=== PATIENT | male | born 1960 | race Caucasian/White ===

== ENCOUNTER → 2016-09-26 | Outpatient (CLI) | payer MEDICAID, OTHER ==
[~2016-09-26] MED LIST: /ADVA50050 IN; /TIOT18INH INH; ACET65TA PO; ALBU17IN INH; ALBU83IN INH; ALBUTEROL INH; ALLE25CA PO; BREO1INH IN; CEFT250T OR; CEFT500T PO; CITA20TA4 PO; FERR325T OR; FOLI1TAB2 PO; GEMF600T PO; HYDR25TAB PO; INCR1INH IN; LEXA1TAB2 PO; LISI10TA4 PO; LOPI600T PO; METO-346 PO; MULT1TAB8 PO; NICO21DI4 TD; NICO21DI5 TD; No Historical Meds; OCEA0.654; PERC5TAB6 PO; PRED50TA OR; PRED50TA PO; PRED5TA PO; PRIL40CA PO; PROT1TAB2 PO; SPIR1CAP IN; SYMB16INH INH; TRAZ50TA4 PO; VITA500T OR; ZITH250T PO; campral PO
[2016-09-26 11:22] LABS: ALBUMIN 3.7 GM/DL (3.2-5.2); ALBUMIN/GLOBULIN RATIO 1.06 (1.00-1.93); ALKALINE PHOSPHATASE 88 U/L (45-117); ALT/SGPT 28 U/L (12-78); ANION GAP 8 MEQ/L (8-16); AST/SGOT 23 U/L (15-37); BILIRUBIN,TOTAL 0.9 MG/DL (0.2-1.0); BLOOD UREA NITROGEN 7 MG/DL (7-18); CALCIUM LEVEL 8.4 MG/DL (8.5-10.1); CARBON DIOXIDE LEVEL 32 MEQ/L (21-32); CHLORIDE LEVEL 100 MEQ/L (98-107); CHOLESTEROL LEVEL 185 MG/DL (<200); CREATININE FOR GFR 0.91 MG/DL (0.70-1.30); GLOMERULAR FILTRATION RATE > 60.0 (>56); GLUCOSE, FASTING 104 MG/DL (70-105); POTASSIUM SERUM 3.9 MEQ/L (3.5-5.1); SODIUM LEVEL 140 MEQ/L (136-145); TOTAL PROTEIN 7.2 GM/DL (6.4-8.2); TRIGLYCERIDES LEVEL 230 MG/DL (<150)
== END ==
LOC: M LAB 10:28
PROVIDERS: ATTEND Physician Assistant
DX: I10 Essential (primary) hypertension (principal)

== ENCOUNTER → 2016-10-22 | Outpatient (REF) | payer OTHER ==
[2016-10-22 12:46] LABS: ALBUMIN 3.9 GM/DL (3.2-5.2); ALBUMIN/GLOBULIN RATIO 1.22 (1.00-1.93); ALKALINE PHOSPHATASE 80 U/L (45-117); ALT/SGPT 38 U/L (12-78); ANION GAP 7 MEQ/L (8-16); AST/SGOT 28 U/L (15-37); BILIRUBIN,TOTAL 0.8 MG/DL (0.2-1.0); BLOOD UREA NITROGEN 9 MG/DL (7-18); CALCIUM LEVEL 8.9 MG/DL (8.5-10.1); CARBON DIOXIDE LEVEL 34 MEQ/L (21-32); CHLORIDE LEVEL 102 MEQ/L (98-107); CHOLESTEROL LEVEL 209 MG/DL (<200); CREATININE FOR GFR 0.81 MG/DL (0.70-1.30); GLOMERULAR FILTRATION RATE > 60.0 (>56); GLUCOSE, FASTING 86 MG/DL (70-105); POTASSIUM SERUM 4.1 MEQ/L (3.5-5.1); SODIUM LEVEL 143 MEQ/L (136-145); TOTAL PROTEIN 7.1 GM/DL (6.4-8.2); TRIGLYCERIDES LEVEL 198 MG/DL (<150)
== END ==
LOC: M SFHCPLAZ 09:42
PROVIDERS: ATTEND Physician Assistant
DX: F32.9 Major depressive disorder, single episode, unspecified (principal)

== ENCOUNTER → 2016-11-21 | Outpatient (CLI) | payer OTHER ==
--- NOTE | 2016-11-21 15:04 | REP ---
LOW-DOSE LUNG SCREENING CT: 11/21/2016. Clinical history: Smoker. Comparison: Chest x-ray 10/08/2015. Findings: Standard thin section low dose screening lung CT and lung window settings only is presented for review. As on the previous chest x-ray. There is linear and curvilinear fibrosis in the inferior lingular segment and in the posterior and lateral basal segments of the left lower lobe. There is no nodular or solid component to this. There is no pleural effusion or pleural based mass. The right lung shows none of these findings. I see no pulmonary parenchymal nodules or masses. There is no widening of the mediastinum. Heart not grossly enlarged. Hilar contours fairly symmetric. Visualized bones grossly intact. Impression: 1. BIRADS category 2, benign. Benign findings. Curvilinear fibrotic changes lingula and left lower lobe without acute infiltrate, parenchymal nodule, mass or other acute finding. 2. Followup recommended in 1 year for low-dose lung screening CT. 3. Patients with this category of findings have a 1-2% chance of malignancy at the time of the examination. Signed by Yo Temple MD 11/21/2016 03:07 P
== END ==
LOC: M RAD 11:32
PROVIDERS: ATTEND Internal Medicine Pulmonary Disease
DX: J43.1 Panlobular emphysema (principal); F17.200 Nicotine dependence, unspecified, uncomplicated

== ENCOUNTER → 2017-11-23 | Outpatient (CLI) | payer MEDICARE | LOC: M RAD 11:31 | DX: F17.210 Nicotine dependence, cigarettes, uncomplicated (principal) | CPT/HCPCS: G0297 ==

== ENCOUNTER 2018-09-21 16:16 | Inpatient (IN) | payer MEDICARE, MEDICAID ==
[~2018-09-21] VITALS: Ht 175.3 cm; Wt 83.2 kg
[~2018-09-21 16:16] MED LIST changes: +FOLI1TAB11 PO; -FOLI1TAB2 PO; -GEMF600T PO; +GEMF600T5 PO; -NICO21DI5 TD; +NICO21DI6 TD; +PERC5TAB12 PO; -PERC5TAB6 PO; +TRAZ-160 PO; -TRAZ50TA4 PO
[2018-09-21] MEDS ORDERED: ALBUTEROL SULFATE 2.5 MG/0.5 ML INH NEB SOLN INH ONE (17:15)
[2018-09-21] MEDS ORDERED: dexameTHASONE 20 MG/5 ML VIAL (J1100) IV ONE (17:15)
[2018-09-21] MEDS ORDERED: NS 1,000 ML IV ONE (17:15)
[2018-09-21] MEDS ORDERED: IPRATROPIUM 0.5MG/ALBUTEROL 2.5MG INH SOL UD 3ML (DUONEB)(J7620) NEB ONE (17:15)
[2018-09-21 17:18] LABS: BASO % 0.3 % (0.0-1.0); HEMOGLOBIN 18.7 g/dl (13.5-17.5); LYMPH # 1.1 10^3/uL (1.5-4.5); LYMPH % 7.5 % (24.0-44.0); MEAN CORPUSCULAR HEMOGLOBIN 33.2 pg (27.0-33.0); MEAN CORPUSCULAR HGB CONC 34.6 g/dl (32.0-36.5); MEAN CORPUSCULAR VOLUME 95.9 fl (80.0-96.0); MONO % 7.1 % (0.0-5.0); NEUTROPHILS # 12.3 10^3/uL (1.8-7.7); NEUTROPHILS % 84.6 % (36.0-66.0); PLATELET COUNT, AUTOMATED 192 10^3/uL (150-450); RED BLOOD COUNT 5.63 10^6/uL (4.30-6.10); VENOUS BASE EXCESS 3.6 (-2.0-2.0); VENOUS HCO3 27.7 MEQ/L (23.0-27.0); VENOUS O2 SATURATION 96.9 % (60.0-80.0); VENOUS PARTIAL PRESSURE CO2 39.9 mmHg (38.0-50.0); VENOUS PARTIAL PRESSURE O2 84.1 mmHg (30.0-50.0); VENOUS PH 7.459 UNITS (7.330-7.430); VENOUS STANDARD HCO3 27.7 MEQ/L; VENOUS TOTAL CO2 28.9 MEQ/L (24.0-28.0); WHITE BLOOD COUNT 14.5 10^3/uL (4.0-10.0)
[2018-09-21 17:41] LABS: ALBUMIN 3.6 GM/DL (3.2-5.2); ALT/SGPT 33 U/L (12-78); BILIRUBIN,DIRECT 0.2 MG/DL (0.0-0.2); BLOOD UREA NITROGEN 10 MG/DL (7-18); CALCIUM LEVEL 8.1 MG/DL (8.5-10.1); CARBON DIOXIDE LEVEL 27 MEQ/L (21-32); CHLORIDE LEVEL 99 MEQ/L (98-107); CPK CREATINE PHOSPHOKINASE 138 U/L (39-308); CREATININE FOR GFR 0.94 MG/DL (0.70-1.30); GLOMERULAR FILTRATION RATE > 60.0 (>56); GLUCOSE, FASTING 141 MG/DL (70-100); NT-PRO BNP 104 PG/ML (<125); POTASSIUM SERUM 3.3 MEQ/L (3.5-5.1); SODIUM LEVEL 137 MEQ/L (136-145); TROPONIN I < 0.02 NG/ML (< 0.10)
--- NOTE | 2018-09-21 18:11 | REP ---
Chest one-view HISTORY: Cough Comparison: 10/08/2015 Linear densities are present in the left lower lobe. There is tenting of the left hemidiaphragm. This is consistent with scarring. The right lung is clear. There is blunting of the left costophrenic angle due to pleural thickening. There is blunting of the left costophrenic angle due to pleural thickening. The heart is normal in size. The pulmonary vasculature is normal in appearance. Impression: Left lower lobe scarring. Electronically Signed by Surendra Plasencia MD 09/21/2018 06:03 P
--- NOTE | 2018-09-21 19:13 | ECGEPIP ---
Stationary ECG Study [facility] - ED Test Date: 2018-09-21 Pat Name: DAMIR VASQUEZ Department: Room: - Gender: M Store Clerk: : 1960 Requested By: Russ Samuels Order Number: [id number] Reading MD: Betty Cason Measurements Intervals [place] Rate: 93 P: 82 CO: 134 QRS: 73 QRSD: 104 T: 25 QT: 346 QTc: 432 Interpretive Statements SINUS RHYTHM NONSPECIFIC T-WAVE ABNORMALITY INCREASED RATE 10/08/15 Electronically Signed On 09-21-2018 19:12:57 EST by Betty Cason
[2018-09-21] MEDS ORDERED: OXAZEPAM 10 MG CAP PO ONE (19:30)
[2018-09-21] MEDS ORDERED: ALBU83IN INH (19:43)
[2018-09-21] MEDS ORDERED: VENTAER INH (19:43)
[2018-09-21] MEDS ORDERED: TYLE325T5 PO (19:43)
[2018-09-21] MEDS ORDERED: INCR1INH INH (19:43)
[2018-09-21] MEDS ORDERED: BREO1INH3 INH (19:43)
[2018-09-21] MEDS ORDERED: OSELTAMIVIR PHOSPHATE 75 MG CAP (TAMIFLU) PO ONE (20:30)
[2018-09-21] MEDS ORDERED: ONDANSETRON 4MG/2ML VIAL (J2405) IV PRN (21:15)
[2018-09-21] MEDS ORDERED: ACETAMINOPHEN TAB 650MG DOSE (2X325MG) PO PRN (21:15)
[2018-09-21] MEDS ORDERED: ALBUTEROL SULFATE 2.5 MG/0.5 ML INH NEB SOLN NEB PRN (21:30)
[2018-09-21] MEDS ORDERED: NS 1,000 ML IV SCH (21:30)
[2018-09-21] MEDS ORDERED: NICOTINE 21MG/24HR 1 EA TRANSDERMAL TD PRN (21:30)
[2018-09-21] MEDS ORDERED: POTASSIUM CHLORIDE 10 MEQ SR TABLET PO ONE (21:30)
[2018-09-21] MEDS: THIAMINE 100 MG TAB PO SCH (22:19)
[2018-09-21] MEDS: LORazepam 2 MG TAB PO PRN (22:19)
[2018-09-22] MEDS: LORazepam 2 MG TAB PO PRN ×3 (00:33→21:06)
[2018-09-22] MEDS: IPRATROPIUM 0.5MG/ALBUTEROL 2.5MG INH SOL UD 3ML (DUONEB)(J7620) NEB SCH ×7 (00:34→23:31)
[2018-09-22] MEDS: HEPARIN SOD (PORCINE) 5000 UNITS/ML VIAL SC SCH ×3 (06:29→21:07)
[2018-09-22] MEDS: TIOTROPIUM INHALER/CAPSULE (SPIRIVA) INH SCH (08:00)
[2018-09-22] MEDS ORDERED: POTASSIUM CHLORIDE 10 MEQ SR TABLET PO ONE (08:00)
[2018-09-22 08:07] LABS: BASO % 0.2 % (0.0-1.0); HEMATOCRIT 52.1 % (42.0-52.0); HEMOGLOBIN 17.7 g/dl (13.5-17.5); LYMPH # 0.7 10^3/uL (1.5-4.5); LYMPH % 6.2 % (24.0-44.0); MEAN CORPUSCULAR VOLUME 97.2 fl (80.0-96.0); MONO # 0.4 10^3/uL (0.0-0.8); MONO % 3.2 % (0.0-5.0); NEUTROPHILS # 9.8 10^3/uL (1.8-7.7); NEUTROPHILS % 89.9 % (36.0-66.0); PLATELET COUNT, AUTOMATED 174 10^3/uL (150-450); RED BLOOD COUNT 5.36 10^6/uL (4.30-6.10); WHITE BLOOD COUNT 10.9 10^3/uL (4.0-10.0)
--- NOTE | 2018-09-22 08:27 | HPE ---
DATE OF ADMISSION: 09/21/2018 CHIEF COMPLAINT: Cough, shortness of breath, wheezing progressively worsening over the last 2 to 3 days. HISTORY OF PRESENT ILLNESS: The patient is a 58-year-old male with a significant past medical history of chronic respiratory failure secondary to chronic obstructive pulmonary disease (COPD), oxygen dependent, uses 2 liters at night and 2 liters as needed during the day. He also has a history of alcohol abuse, as well as tobacco abuse. He presented to the emergency room after visiting his fitness technician, Dr. Sexton. He presented there with 2 to 3 days of cough. He is unable to describe his sputum, but it is worsening sputum production over the past several days, pleuritic chest pain, dyspnea on exertion. He is now using his daily oxygen more frequently, wheezing is not responding to the nebulizer. He does endorse a sick contact at home, his grandson has been recently ill. He also endorses nausea but no vomiting. He denies abdominal pain, constipation, diarrhea, urinary symptoms. He is noted to be flu positive. He endorses body aches, runny nose, subjective fevers and chills. PAST MEDICAL HISTORY: See history of present illness. PAST SURGICAL HISTORY: He has had hernia repair. HOME MEDICATIONS: The patient uses: - albuterol - Breo Ellipta - Incruse Ellipta ALLERGIES: CODEINE, reaction is unknown. SOCIAL HISTORY: He is a current two pack per day smoker. He drinks daily. He does three shots every night, he states that his last drink was approximately 2 days ago. Admits to recreational marijuana use. FAMILY HISTORY: Cancer and diabetes. REVIEW OF SYSTEMS: 12-point review of system was completed, all of which are negative, except those listed in the history of present illness. VITAL SIGNS: On admission, temperature 96.7, pulse 96, respirations 20, saturating at 92% on room air. Blood pressure 164/85. PHYSICAL EXAMINATION: GENERAL: The patient is in no apparent distress. Head is normocephalic, atraumatic. EYES: Extraocular movements are intact. Pupils are equal, round and reactive to light. NECK: Supple. No jugular venous pressure. LUNGS: Diffuse wheezing but bronchial breath sounds throughout, coarse breath sounds. No use of accessory muscles. CARDIOVASCULAR: Regular rate and rhythm. Normal S1, S2. No murmurs, gallops or rubs. ABDOMEN: Soft, nontender, nondistended. Positive bowel sounds. No rebound or guarding. EXTREMITIES: No pitting edema or calf tenderness. SKIN: Appears to be intact. No rashes, lesions or breakdown. NEUROLOGIC: He is alert and oriented times three. No focal deficits appreciated on examination. LABORATORIES AND IMAGING: Completed in the emergency room. White count 14, hemoglobin and hematocrit of 18/54, platelet count of 192. Chemistry shows a potassium of 3.3, BUN and creatinine of 10/0.94. Liver function tests within normal limits. Lactate within normal limits. Chest x-ray: Left lower lobe scarring. Respiratory panel was sent and the patient is influenza A positive. ASSESSMENT AND PLAN: 1. Chronic obstructive pulmonary disease (COPD) exacerbation secondary to influenza. We will place the patient on droplet precautions, DuoNeb standing, albuterol as needed, oxygen as needed, Solu-Medrol 40 twice a day, fingersticks while on Solu-Medrol, Tylenol as needed for fevers and chills. 2. History of alcohol and impending withdrawal. We will place the patient on CIWA protocol. Ativan as needed. IV fluids. Multivitamin, folate, thiamine. 3. History of tobacco abuse. Nicotine replacement patch. The patient has been counseled. 4. Supportive. Deep vein thrombosis (DVT) prophylaxis with heparin subcutaneous. Gastrointestinal prophylaxis is not indicated. 5. Diet is regular.
[2018-09-22] MEDS: ADVAIR HFA 230/21MCG INHALER INH SCH ×2 (09:00→19:41)
[2018-09-22 09:09] LABS: BLOOD UREA NITROGEN 10 MG/DL (7-18); CALCIUM LEVEL 7.9 MG/DL (8.5-10.1); CARBON DIOXIDE LEVEL 26 MEQ/L (21-32); CHLORIDE LEVEL 102 MEQ/L (98-107); CPK CREATINE PHOSPHOKINASE 107 U/L (39-308); CREATININE FOR GFR 0.59 MG/DL (0.70-1.30); GLOMERULAR FILTRATION RATE > 60.0 (>56); GLUCOSE, FASTING 173 MG/DL (70-100); MAGNESIUM LEVEL 2.5 MG/DL (1.8-2.4); POTASSIUM SERUM 4.1 MEQ/L (3.5-5.1); SODIUM LEVEL 137 MEQ/L (136-145); TROPONIN I < 0.02 NG/ML (< 0.10)
[2018-09-22] MEDS: MULTIVITAMINS/MINERALS THERAP 1 TAB PO SCH (10:41)
[2018-09-22] MEDS: THIAMINE 100 MG TAB PO SCH ×2 (10:41→21:06)
[2018-09-22] MEDS: FOLIC ACID 1 MG TAB PO SCH (10:41)
[2018-09-22] MEDS: OSELTAMIVIR PHOSPHATE 75 MG CAP (TAMIFLU) PO SCH ×2 (10:54→21:06)
[2018-09-22] MEDS: methylPREDNISolone INJ 125 MG/2 ML VIAL (J2930) IV SCH ×2 (10:54→21:08)
[2018-09-22] MEDS: NICOTINE 21MG/24HR 1 EA TRANSDERMAL TD SCH (10:54)
[2018-09-22 16:26] VITALS: BP 125/73
[2018-09-22 16:31] VITALS: BP 125/73
--- NOTE | 2018-09-22 17:11 | IPN ---
DATE: 09/22/2018 The patient is seen and examined. No acute events overnight. Reported respiration mildly improved. Denies any chest pain, pressure or discomfort. VITAL SIGNS: Temperature 97.2, pulse 76, respiratory rate 17, blood pressure 127/68, pulse oximetry 94% on two liters nasal cannula. LABORATORY DATA: WBC 10.9, hemoglobin and hematocrit 17.7/52.1, platelets 174. Chemistry: Sodium 137, potassium 4.1, chloride 102, bicarbonate 26, BUN 10, creatinine 0.59. Cardiac enzymes negative times two. C-reactive protein 18.6. PHYSICAL EXAMINATION: GENERAL: Patient alert, comfortable in no acute distress. HEENT: Normocephalic, atraumatic. PULMONARY: Diffuse bilateral expiratory wheeze. Coarse breath sounds bilateral. Does not use accessory muscles. Pursed lip breathing. CARDIAC: Regular, S1, S2. ABDOMEN: Soft, nontender. Positive bowel sounds. EXTREMITIES: No clubbing, cyanosis, or edema. ASSESSMENT AND PLAN: This is a 58-year-old male patient with underlying medical history of chronic obstructive pulmonary disease (COPD) on intermittent oxygen at home, uses two liters at night and intermittent two liters at daytime, history of alcohol abuse, drinks about three drinks of vodka per night, smoking, down to one pack per day, used to be two packs, admitted for influenza and acute COPD exacerbation. 1. Acute COPD exacerbation secondary to influenza A. Continue Tamiflu, droplet precaution, nebulizer treatment, Solu-Medrol, oxygen supplementation, Advair, Spiriva. 2. History of alcohol abuse, pending withdrawal. Clinical institute withdrawal assessment (CIWA) protocol. Ativan as needed. Thiamine, folate, multivitamin. 3. Smoking, tobacco abuse. Nicotine patch. Counseling provided. 4. Poorly compliant. During the daytime today, the patient has attempted to leave the emergency room because he was frustrated with waiting for a bed. Subsequently, the patient came back with worsening shortness of breath. Counseling was provided. 5. Deep vein thrombosis (DVT) prophylaxis. Heparin subcutaneous. DISPOSITION: Pending clinical improvement. We will taper steroid.
[2018-09-22 19:00] VITALS: BP 129/74
[2018-09-22 21:01] VITALS: BP 128/76
[2018-09-22 22:00] VITALS: BP 124/71
[2018-09-23] VITALS (8 sets, daily range): BP systolic 117–141; BP diastolic 63–88
[2018-09-23] MEDS: LORazepam 2 MG TAB PO PRN ×2 (05:20→08:00)
[2018-09-23 05:47] LABS: BASO % 0.1 % (0.0-1.0); HEMATOCRIT 52.3 % (42.0-52.0); HEMOGLOBIN 17.2 g/dl (13.5-17.5); LYMPH # 0.9 10^3/uL (1.5-4.5); LYMPH % 5.4 % (24.0-44.0); MEAN CORPUSCULAR HEMOGLOBIN 32.5 pg (27.0-33.0); MEAN CORPUSCULAR HGB CONC 32.9 g/dl (32.0-36.5); MEAN CORPUSCULAR VOLUME 98.7 fl (80.0-96.0); MONO # 0.6 10^3/uL (0.0-0.8); MONO % 3.5 % (0.0-5.0); NEUTROPHILS # 14.2 10^3/uL (1.8-7.7); NEUTROPHILS % 90.5 % (36.0-66.0); PLATELET COUNT, AUTOMATED 187 10^3/uL (150-450); WHITE BLOOD COUNT 15.7 10^3/uL (4.0-10.0)
[2018-09-23 06:06] LABS: BLOOD UREA NITROGEN 13 MG/DL (7-18); C REACTIVE PROTEIN QUANTITATIV 9.25 MG/DL (0.00-0.30); CARBON DIOXIDE LEVEL 26 MEQ/L (21-32); CHLORIDE LEVEL 105 MEQ/L (98-107); CREATININE FOR GFR 0.63 MG/DL (0.70-1.30); GLOMERULAR FILTRATION RATE > 60.0 (>56); GLUCOSE, FASTING 130 MG/DL (70-100); MAGNESIUM LEVEL 2.1 MG/DL (1.8-2.4); POTASSIUM SERUM 4.3 MEQ/L (3.5-5.1); SODIUM LEVEL 137 MEQ/L (136-145)
[2018-09-23] MEDS: HEPARIN SOD (PORCINE) 5000 UNITS/ML VIAL SC SCH ×3 (06:15→20:51)
[2018-09-23] MEDS: MULTIVITAMINS/MINERALS THERAP 1 TAB PO SCH (08:00)
[2018-09-23] MEDS: FOLIC ACID 1 MG TAB PO SCH (08:00)
[2018-09-23] MEDS: THIAMINE 100 MG TAB PO SCH ×2 (08:00→20:50)
[2018-09-23] MEDS: IPRATROPIUM 0.5MG/ALBUTEROL 2.5MG INH SOL UD 3ML (DUONEB)(J7620) NEB SCH ×5 (08:00→23:36)
[2018-09-23] MEDS: OSELTAMIVIR PHOSPHATE 75 MG CAP (TAMIFLU) PO SCH ×2 (08:00→20:50)
[2018-09-23] MEDS: methylPREDNISolone INJ 125 MG/2 ML VIAL (J2930) IV SCH (08:01)
[2018-09-23] MEDS: NICOTINE 21MG/24HR 1 EA TRANSDERMAL TD SCH (08:01)
[2018-09-23] MEDS: TIOTROPIUM INHALER/CAPSULE (SPIRIVA) INH SCH (08:29)
[2018-09-23] MEDS: ADVAIR HFA 230/21MCG INHALER INH SCH ×2 (08:29→20:48)
[2018-09-23] MEDS ORDERED: OXAZEPAM 10 MG CAP PO PRN (09:00)
[2018-09-23] MEDS: LORazepam 2 MG/ML VIAL (J2060) IV PRN ×2 (09:54→12:21)
[2018-09-23] MEDS: OXAZEPAM 10 MG CAP PO SCH ×3 (12:21→23:31)
[2018-09-23] MEDS ORDERED: HALOPERIDOL 5 MG/ML VIAL (J1630) IV PRN (12:30)
[2018-09-23] MEDS ORDERED: LORazepam 2 MG/ML VIAL (J2060) IV PRN (12:30)
--- NOTE | 2018-09-23 14:07 | REP ---
CT Head without contrast HISTORY: Rule out head injury COMPARISON: 09/14/2015 There is no intraparenchymal hemorrhage, acute infarct, mass or midline shift. The ventricular system and cortical sulci are dilated consistent with minimal volume loss. There is no extra cerebral collection. There is no fracture. The visualized sinuses are clear. IMPRESSION: Minimal volume loss. Electronically Signed by Surendra Plasencia MD 09/23/2018 01:58 P
--- NOTE | 2018-09-23 19:46 | MHCRPDOC ---
[facility] Consultation Consultation DATE OF CONSULTATION: 09/23/18 CONSULTATION REQUESTED BY: Dr. Robin REASON FOR CONSULTATION: Recent suicide attempt RELEVANT HISTORY: This is a 58 year old male who came to the hospital for an acute exacerbation of COPD. He says he still drank alcohol the night he came into the hospital. Apparently he barricaded himself inside of a room [facility] and tried to hung himself with a sheet that he had made it into a rope. He had previous admissions to [facility] in 2014 and 2016, when he was diagnosed and treated for depression, anxiety and alcohol use disorder. He was prescribed Celexa but he stopped taking it since several years ago. PAST PSYCHIATRIC HISTORY: Patient has a previous history of anxiety, depression and substance abuse PAST MEDICAL HISTORY: COPD, he had a umbilical hernia repair a couple of years ago and has chronic back pain FAMILY HISTORY: Mother: Father: Siblings: A brother and a sister. Children: Two children ( Adult children. He lives with his , his daughter and his grandchildren. His son moved out) PERSONAL AND SOCIAL HISTORY: The patient was born and raised in [place]. Resides in: [place] Marital Status: M Children: Two children ( one daughter and one son) Employment: He is not employed at this time. He lost his job and has been having financial problems ever since. SUBSTANCE ABUSE HISTORY: Smoking: one pack/day ETOH: 1 bottle/day 4 months ago, a couple of shots at bedtime recently (everyday) Illicit Drugs: Marihuana LEGAL HISTORY: Driving while intoxicated (DWI) at the age of 18.. MENTAL STATUS EXAMINATION: Patient is a 58 year old male, who is alert, cooperative, with good eye contact, laying in bed with some respiratory distress. Speech is spontaneous and fluent. Normal tone and rate. Low volume. Language skills are good. Thought processes including: linear, coherent. Thought content: anxious thoughts about his financial situation, about making ends meet. Description of associations: good Description of abnormal or psychotic thoughts: Denies SI/HI, mariaelena AV hallucinations, denies thought delusions Judgment: Poor Insight: Limited. Orientation to x 3 Recent and remote memory: he can't remember the recent incidents that motivated this consults. He can't remember trying to hurt himself. Attention span and concentration: Good Language: well structured, fair vocabulary Fund of knowledge: average Mood: Anxious Affect: full, appropriate, reactive, congruent with mood DIAGNOSIS: 1. Other specified depressive disorder 2. Generalized Anxiety disorder 3. ETOH use disorder 4. Cannabis misuse 5. R/O ETOH induced depression PLAN: 1. Start Patient on Zoloft 25 mgs PO QAM and slowly increase it. 2. Patient doesn't remember trying to kill himself. I believe that he probably was experiencing withdrawals from alcohol, but he reports high levels of anxiety and he uses alcohol and nicotine as his crutches. He smokes marihuana occasionally. He says that his 's income is not enough and he says several times: "I need to get a job, I need to work". He says they have financial difficulties but they don't owe money to anyone. He gets frustrated because his lends money to her relatives and she doesn't realize they are going through a tough time (since he lost his job, about 2 years ago), but he is not insightful about the amount of money he spends in alcohol. He remembers that Dr. Craig and all the staff tried their best for him to get into Rehab and he said he was there only 48 hours because of insurance problems, apparently. He is goal oriented, he says everything he wants is to go back home even if he has to remain on the first floor in case his is still mad at him, because when that happens, she goes to the second floor and he remains on the 1st. he says he want to live because he has his grandson and "I love him to and he loves me too". He says he can't wait to go fishing with his grandson, once the snow is over. Patient was very polite, appropriate and coherent. He certainly is stress ed out, anxious and depressed but he denies SI. He accepted to take Zoloft in a low dose. Patient might need to be admitted to [facility]. I will come to re evaluate him tomorrow. Vital Signs Vital Signs Date Time Temp Pulse Resp B/P (MAP) Pulse Ox O2 Delivery O2 Flow Rate FiO2 09/23/18 16:00 136/88 (104) 09/23/18 16:00 70 09/23/18 15:30 98.2 22 97 2.0 09/22/18 15:46 Nasal Cannula Laboratory Data 24H Labs Laboratory Tests 2 09/23/18 02:14: Bedside Glucose (Misc Panel) 173H 09/23/18 05:37: Immature Granulocyte % (Auto) 0.5, White Blood Count 15.7H, Red Blood Count 5.30, Hemoglobin 17.2, Hematocrit 52.3H, Mean Corpuscular Volume 98.7H, Mean Corpuscular Hemoglobin 32.5, Mean Corpuscular Hemoglobin Concent 32.9, Red Cell Distribution Width 14.3, Platelet Count 187, Neutrophils (%) (Auto) 90.5H, Lymphocytes (%) (Auto) 5.4L, Monocytes (%) (Auto) 3.5, Eosinophils (%) (Auto) 0.0, Basophils (%) (Auto) 0.1, Neutrophils # (Auto) 14.2H, Lymphocytes # (Auto) 0.9L, Monocytes # (Auto) 0.6, Eosinophils # (Auto) 0.0, Basophils # (Auto) 0.0, Nucleated Red Blood Cells % (auto) 0.0, Anion Gap 6L, Glomerular Filtration Rate > 60.0, Blood Urea Nitrogen 13, Creatinine 0.63L, Sodium Level 137, Potassium Level 4.3, Chloride Level 105, Carbon Dioxide Level 26, Calcium Level 8.0L, Magnesium Level 2.1, C-Reactive Protein, Quantitative 9.25H 09/23/18 06:14: Bedside Glucose (Misc Panel) 126H 09/23/18 11:30: Bedside Glucose (Misc Panel) 170H 09/23/18 17:25: Bedside Glucose (Misc Panel) 158H Home Medications Current Medications Current Medications Acetaminophen (Tylenol Tab) 650 mg Q4HP PRN PO MILD PAIN OR FEVER; Start 09/21/18 at 21:15 Albuterol Sulfate (Proventil Neb) 2.5 mg Q2HP PRN NEB SOB/WHEEZING; Start 09/21/18 at 21:30 Albuterol/ Ipratropium (Duoneb (Ipr 0.5mg/Alb 2.5mg)) 3 ml RQ4H NEB Last administered on 09/23/18at 11:15; Start 09/22/18 at 00:00 Folic Acid (Folic Acid) 1 mg DAILY PO Last administered on 09/23/18at 08:00; Start 09/22/18 at 09:00 Haloperidol (Haldol) 2.5 mg Q6HP PRN IV AGITATION Last administered on 09/23/18at 13:02; Start 09/23/18 at 12:30 Heparin Sodium (Porcine) (Heparin) 5,000 units Q8H SC Last administered on 09/23/18at 16:13; Start 09/22/18 at 06:00 Home Med (Med Rec Complete!) ASDIRECTED XX ; Start 09/21/18 at 19:45; Stop 09/21/18 at 19:46; Status DC Lorazepam (Ativan) 1 mg Q2HP PRN IV ANXIETY/AGITATION Last administered on 09/23/18at 12:21; Start 09/23/18 at 09:00; Stop 09/23/18 at 12:33; Status DC Lorazepam (Ativan) 2 mg ASDIRECTED PRN PO SEE PROTOCOL Last administered on 09/23/18at 08:00; Start 09/21/18 at 21:30; Stop 09/23/18 at 08:57; Status DC Lorazepam (Ativan) 2 mg Q2HP PRN IV ANXIETY/AGITATION; Start 09/23/18 at 12:30 Methylprednisolone (SOLU medrol) 20 mg Q12H IV ; Start 09/23/18 at 21:00 Methylprednisolone (SOLUmedrol) 40 mg Q12H IV Last administered on 09/23/18at 08:01; Start 09/22/18 at 09:00; Stop 09/23/18 at 16:15; Status DC Multivitamins (Theragram-M) 1 tab DAILY PO Last administered on 09/23/18at 08:00; Start 09/22/18 at 09:00 Nicotine (Nicoderm Cq 21mg) 1 patch DAILY TD Last administered on 09/23/18at 08:01; Start 09/22/18 at 09:00 Nicotine (Nicoderm Cq 21mg) 1 patch DAILYPRN PRN TD NICOTINE WITHDRAWAL; Start 09/21/18 at 21:30; Stop 09/22/18 at 08:48; Status DC Ondansetron HCl (ZOFRAN INJection) 4 mg Q6HP PRN IV NAUSEA OR VOMITING; Start 09/21/18 at 21:15 Oseltamivir Phosphate (Tamiflu) 75 mg BID PO Last administered on 09/23/18 08:00; Start 09/22/18 at 09:00 Oxazepam (Serax) 10 mg Q4HP PRN PO withdrawal Last administered on 09/23/18 16:16; Start 09/23/18 at 09:00 Oxazepam (Serax) 20 mg Q6H PO Last administered on 09/23/18 17:26; Start 09/23/18 at 12:00 Salmeterol Xinafoate/ Fluticasone (Advair Hfa 230/ 21) 2 puff BID INH Last administered on 09/23/18 08:29; Start 09/22/18 at 09:00 Sodium Chloride 1,000 ml @ 80 mls/hr [id number] IV Last administered on 09/21/18 22:19; Start 09/21/18 at 21:30; Stop 09/22/18 at 07:56; Status DC Thiamine HCl (Thiamine HCl) 100 mg BID PO Last administered on 09/23/18 08:00; Start 09/21/18 at 21:28; Stop 09/24/18 at 09:01 Tiotropium Gable (Spiriva Handihaler) 1 inhalation DAILY@08 INH Last administered on 09/23/18 08:29; Start 09/22/18 at 08:00 Scheduled (Incruse Ellipta) 62.5 Mcg/Inh Inh, 62.5 MCG INH DAILY, (Reported) Fluticasone/Vilanterol (Breo Ellipta 200-25 Mcg/INH) 1 Inh Inh, 1 PUFF INH DAILY, (Reported) Scheduled PRN Acetaminophen (Tylenol) 325 Mg Tab, 650 MG PO QID PRN for PAIN, (Reported) Albuterol Sulfate (Ventolin Hfa) 108 Mcg/Act Aer, 2 PUFFS INH QID PRN for SHORTNESS OF BREATH, (Reported) Albuterol Sulfate (Albuterol Sulfate) 2.5 Mg/3 Ml Nebu, 2.5 MG INH QID PRN for SHORTNESS OF BREATH, (Reported) Allergies Coded Allergies: No Known Drug Allergy (Verified Allergy, Unknown, 11/08/12) Codeine (Verified Adverse Reaction, Intermediate, VOMIT, 11/08/12) ELLIOT PANG MD Sep 23, 2018 19:46
--- NOTE | 2018-09-23 20:04 | IPNPDOC ---
Text Note Date of Service The patient was seen on 09/23/18. NOTE The patient is seen and examined. Poor historian. agitated. as per nursing staff, patient attempted to lock himself in the room and hang himself after comfrontation with his . Reported respiration mildly improved. Denies any chest pain, pressure or discomfort. PHYSICAL EXAMINATION: GENERAL: Patient alert, comfortable in no acute distress. HEENT: Normocephalic, atraumatic. PULMONARY: Diffuse bilateral expiratory wheeze. Coarse breath sounds bilateral. Does not use accessory muscles. Pursed lip breathing. CARDIAC: Regular, S1, S2. ABDOMEN: Soft, nontender. Positive bowel sounds. EXTREMITIES: No clubbing, cyanosis, or edema. ASSESSMENT AND PLAN: This is a 58-year-old male patient with underlying medical history of chronic obstructive pulmonary disease (COPD) on intermittent oxygen at home, uses two liters at night and intermittent two liters at daytime, history o f alcohol abuse, drinks about three drinks of vodka per night, smoking, down to one pack per day, used to be two packs, admitted for influenza and acute COPD exacerbation. 1. Acute COPD exacerbation secondary to influenza A. Continue Tamiflu, droplet precaution, nebulizer treatment, Solu-Medrol, oxygen supplementation, Advair, Spiriva. 2. History of alcohol abuse, pending withdrawal. Clinical institute withdrawal assessment (CIWA) protocol. serax standing and PRN, with Ativan IV as needed if patient unable to take PO. Thiamine, folate, multivitamin. 3. agitation with suicide attempt. likely delirium vs etoh withdrawal, vs metabolic encephalopathy, underlying alcohol induced early dementia, 1 on 1, elopement and suicide precaution. c/w med as above. Psych consulted. 3. Smoking, tobacco abuse. Nicotine patch. Counseling provided. 4. Poorly compliant. complicating care 5. Deep vein thrombosis (DVT) prophylaxis. Heparin subcutaneous. DISPOSITION: Pending clinical improvement. We will taper steroid. VS,Fishbone, I+O VS, Fishbone, I+O Laboratory Tests 09/23/18 05:37 Red Blood Count 5.30, Mean Corpuscular Volume 98.7 H, Mean Corpuscular Hemoglobin 32.5, Mean Corpuscular Hemoglobin Concent 32.9, Red Cell Distribution Width 14.3, Neutrophils (%) (Auto) 90.5 H, Lymphocytes (%) (Auto) 5.4 L, Monocytes (%) (Auto) 3.5, Eosinophils (%) (Auto) 0.0, Basophils (%) (Auto) 0.1, Neutrophils # (Auto) 14.2 H, Lymphocytes # (Auto) 0.9 L, Monocytes # (Auto) 0.6, Eosinophils # (Auto) 0.0, Basophils # (Auto) 0.0, Calcium Level 8.0 L Vital Signs Date Time Temp Pulse Resp B/P (MAP) Pulse Ox O2 Delivery O2 Flow Rate FiO2 09/23/18 16:00 136/88 (104) 09/23/18 16:00 70 09/23/18 15:30 98.2 22 97 2.0 09/22/18 15:46 Nasal Cannula I&O- Last 24 Hours up to 6 AM 09/23/18 05:59 Intake Total 800 ml Output Total 0 ml Balance 800 ml KIM CHACON MD Sep 23, 2018 20:04
[2018-09-23] MEDS: methylPREDNISolone INJ 40 MG/1 ML VIAL (J2920) IV SCH (20:50)
[2018-09-24] VITALS (7 sets, daily range): BP systolic 133–150; BP diastolic 64–85
[2018-09-24] MEDS: IPRATROPIUM 0.5MG/ALBUTEROL 2.5MG INH SOL UD 3ML (DUONEB)(J7620) NEB SCH ×6 (03:17→23:21)
[2018-09-24 03:29] LABS: BASO % 0.3 % (0.0-1.0); HEMATOCRIT 52.6 % (42.0-52.0); HEMOGLOBIN 17.1 g/dl (13.5-17.5); LYMPH # 1.1 10^3/uL (1.5-4.5); LYMPH % 9.6 % (24.0-44.0); MEAN CORPUSCULAR HEMOGLOBIN 32.6 pg (27.0-33.0); MEAN CORPUSCULAR HGB CONC 32.5 g/dl (32.0-36.5); MEAN CORPUSCULAR VOLUME 100.4 fl (80.0-96.0); MONO # 0.6 10^3/uL (0.0-0.8); MONO % 5.3 % (0.0-5.0); NEUTROPHILS # 9.6 10^3/uL (1.8-7.7); NEUTROPHILS % 84.3 % (36.0-66.0); PLATELET COUNT, AUTOMATED 219 10^3/uL (150-450); RED BLOOD COUNT 5.24 10^6/uL (4.30-6.10); WHITE BLOOD COUNT 11.4 10^3/uL (4.0-10.0)
[2018-09-24 03:45] LABS: BLOOD UREA NITROGEN 12 MG/DL (7-18); C REACTIVE PROTEIN QUANTITATIV 4.46 MG/DL (0.00-0.30); CALCIUM LEVEL 8.2 MG/DL (8.5-10.1); CARBON DIOXIDE LEVEL 31 MEQ/L (21-32); CHLORIDE LEVEL 105 MEQ/L (98-107); CREATININE FOR GFR 0.74 MG/DL (0.70-1.30); GLOMERULAR FILTRATION RATE > 60.0 (>56); GLUCOSE, FASTING 141 MG/DL (70-100); MAGNESIUM LEVEL 2.3 MG/DL (1.8-2.4); POTASSIUM SERUM 4.3 MEQ/L (3.5-5.1); SODIUM LEVEL 140 MEQ/L (136-145)
[2018-09-24] MEDS: HEPARIN SOD (PORCINE) 5000 UNITS/ML VIAL SC SCH ×3 (06:16→21:01)
[2018-09-24] MEDS: OXAZEPAM 10 MG CAP PO SCH ×4 (06:16→23:46)
[2018-09-24] MEDS: TIOTROPIUM INHALER/CAPSULE (SPIRIVA) INH SCH (08:37)
[2018-09-24] MEDS: ADVAIR HFA 230/21MCG INHALER INH SCH ×2 (08:37→19:56)
[2018-09-24] MEDS: methylPREDNISolone INJ 40 MG/1 ML VIAL (J2920) IV SCH ×2 (08:54→21:01)
[2018-09-24] MEDS: MULTIVITAMINS/MINERALS THERAP 1 TAB PO SCH (08:54)
[2018-09-24] MEDS: FOLIC ACID 1 MG TAB PO SCH (08:54)
[2018-09-24] MEDS: THIAMINE 100 MG TAB PO SCH (08:54)
[2018-09-24] MEDS: SERTRALINE HCL 25 MG TABLET PO SCH (08:54)
[2018-09-24] MEDS: NICOTINE 21MG/24HR 1 EA TRANSDERMAL TD SCH (08:54)
[2018-09-24] MEDS: OSELTAMIVIR PHOSPHATE 75 MG CAP (TAMIFLU) PO SCH ×2 (08:54→21:00)
[2018-09-24] MEDS ORDERED: GLUCOSE 4 GM CHEW TABLET PO PRN (11:45)
[2018-09-24] MEDS ORDERED: GLUCAGON FOR INJ 1 MG VIAL (J1610) SC PRN (11:45)
[2018-09-24] MEDS ORDERED: DEXTROSE 50% 50 ML SYRINGE IV PRN (11:45)
[2018-09-24] MEDS: HumaLOG INSULIN (NovoLOG) PER UNIT SC SCH ×2 (12:00→17:51)
--- NOTE | 2018-09-24 19:08 | IPNPDOC ---
Text Note Date of Service The patient was seen on 09/24/18. NOTE The patient is seen and examined. Poor historian.. Reported respiration mildly improved. Denies any chest pain, pressure or discomfort. alot calmer PHYSICAL EXAMINATION: GENERAL: Patient alert, comfortable in no acute distress. HEENT: Normocephalic, atraumatic. PULMONARY: Diffuse bilateral expiratory wheeze. Coarse breath sounds bilateral. Does not use accessory muscles. Pursed lip breathing. CARDIAC: Regular, S1, S2. ABDOMEN: Soft, nontender. Positive bowel sounds. EXTREMITIES: No clubbing, cyanosis, or edema. ASSESSMENT AND PLAN: This is a 58-year-old male patient with underlying medical history of chronic obstructive pulmonary disease (COPD) on intermittent oxygen at home, uses two liters at night and intermittent two liters at daytime, history of alcohol abuse, drinks about three drinks of vodka per night, smoking, down to one pack per day, used to be two packs, admitted for influenza and acute COPD exacerbation. 1. Acute COPD exacerbation secondary to influenza A. Continue Tamiflu, droplet precaution, nebulizer treatment, oxygen supplementation, Advair, Spiriva. taper steroid 2. History of alcohol abuse, pending withdrawal. Clinical institute withdrawal assessment (CIWA) protocol. serax standing and PRN, with Ativan IV as needed if patient unable to take PO. Thiamine, folate, multivitamin. serax dose decreased 3. agitation with suicide attempt. likely delirium vs etoh withdrawal, vs metabolic encephalopathy, underlying alcohol induced early dementia, 1 on 1, elopement and suicide precaution. c/w med as above. Psych consulted. zoloft 3. Smoking, tobacco abuse. Nicotine patch. Counseling provided. 4. Poorly compliant. complicating care 5. Deep vein thrombosis (DVT) prophylaxis. Heparin subcutaneous. DISPOSITION: Pending clinical improvement. We will taper steroid. final psych rec VS,Eric, I+O VS, Eric, I+O Laboratory Tests 09/24/18 03:09 Red Blood Count 5.24, Mean Corpuscular Volume 100.4 H, Mean Corpuscular Hemoglobin 32.6, Mean Corpuscular Hemoglobin Concent 32.5, Red Cell Distribution Width 14.2, Neutrophils (%) (Auto) 84.3 H, Lymphocytes (%) (Auto) 9.6 L, Monocytes (%) (Auto) 5.3 H, Eosinophils (%) (Auto) 0.0, Basophils (%) (Auto) 0.3, Neutrophils # (Auto) 9.6 H, Lymphocytes # (Auto) 1.1 L, Monocytes # (Auto) 0.6, Eosinophils # (Auto) 0.0, Basophils # (Auto) 0.0, Calcium Level 8.2 L Vital Signs Date Time Temp Pulse Resp B/P (MAP) Pulse Ox O2 Delivery O2 Flow Rate FiO2 09/24/18 16:29 69 138/78 09/24/18 16:29 98.0 18 96 2.0 09/22/18 15:46 Nasal Cannula I&O- Last 24 Hours up to 6 AM 09/24/18 06:00 Intake Total 1310 ml Output Total 400 ml Balance 910 ml KIM CHACON MD Sep 24, 2018 19:08
[2018-09-24] MEDS ORDERED: HumaLOG INSULIN (NovoLOG) PER UNIT SC SCH (21:00)
[2018-09-25 04:00] VITALS: BP 135/84
[2018-09-25] MEDS: IPRATROPIUM 0.5MG/ALBUTEROL 2.5MG INH SOL UD 3ML (DUONEB)(J7620) NEB SCH ×4 (04:01→15:23)
[2018-09-25 04:30] LABS: BASO % 0.2 % (0.0-1.0); HEMATOCRIT 49.1 % (42.0-52.0); HEMOGLOBIN 16.1 g/dl (13.5-17.5); LYMPH # 1.2 10^3/uL (1.5-4.5); LYMPH % 12.9 % (24.0-44.0); MEAN CORPUSCULAR HEMOGLOBIN 32.2 pg (27.0-33.0); MEAN CORPUSCULAR HGB CONC 32.8 g/dl (32.0-36.5); MEAN CORPUSCULAR VOLUME 98.2 fl (80.0-96.0); MONO # 0.5 10^3/uL (0.0-0.8); MONO % 5.1 % (0.0-5.0); NEUTROPHILS # 7.8 10^3/uL (1.8-7.7); NEUTROPHILS % 81.2 % (36.0-66.0); PLATELET COUNT, AUTOMATED 228 10^3/uL (150-450); WHITE BLOOD COUNT 9.6 10^3/uL (4.0-10.0)
[2018-09-25 04:47] LABS: BLOOD UREA NITROGEN 12 MG/DL (7-18); C REACTIVE PROTEIN QUANTITATIV 1.97 MG/DL (0.00-0.30); CALCIUM LEVEL 7.8 MG/DL (8.5-10.1); CARBON DIOXIDE LEVEL 31 MEQ/L (21-32); CHLORIDE LEVEL 103 MEQ/L (98-107); CREATININE FOR GFR 0.72 MG/DL (0.70-1.30); GLOMERULAR FILTRATION RATE > 60.0 (>56); GLUCOSE, FASTING 129 MG/DL (70-100); SODIUM LEVEL 137 MEQ/L (136-145)
[2018-09-25 05:16] VITALS: BP 135/84
[2018-09-25] MEDS: HEPARIN SOD (PORCINE) 5000 UNITS/ML VIAL SC SCH ×2 (05:20→14:00)
[2018-09-25] MEDS: OXAZEPAM 10 MG CAP PO SCH ×2 (05:20→13:21)
[2018-09-25] MEDS: HumaLOG INSULIN (NovoLOG) PER UNIT SC SCH ×2 (07:42→13:19)
[2018-09-25 08:00] VITALS: BP 130/76
[2018-09-25] MEDS: TIOTROPIUM INHALER/CAPSULE (SPIRIVA) INH SCH (08:09)
[2018-09-25] MEDS: ADVAIR HFA 230/21MCG INHALER INH SCH (08:10)
[2018-09-25] MEDS: FOLIC ACID 1 MG TAB PO SCH (08:39)
[2018-09-25] MEDS: MULTIVITAMINS/MINERALS THERAP 1 TAB PO SCH (08:39)
[2018-09-25] MEDS: NICOTINE 21MG/24HR 1 EA TRANSDERMAL TD SCH (08:39)
[2018-09-25] MEDS: OSELTAMIVIR PHOSPHATE 75 MG CAP (TAMIFLU) PO SCH (08:39)
[2018-09-25] MEDS: SERTRALINE HCL 25 MG TABLET PO SCH (08:39)
[2018-09-25] MEDS ORDERED: predniSONE 10 MG TAB PO SCH (09:00)
[2018-09-25] MEDS ORDERED: FOLI1TAB11 PO (11:57)
[2018-09-25] MEDS ORDERED: ADVA230A INH (11:57)
[2018-09-25] MEDS ORDERED: VITMTA PO (11:57)
[2018-09-25] MEDS ORDERED: SERT25TA PO (11:57)
[2018-09-25] MEDS ORDERED: OXAZ10CA3 PO (11:57)
[2018-09-25] MEDS ORDERED: OSEL75CA2 PO (11:57)
[2018-09-25] MEDS ORDERED: PRED10TA2 PO (11:57)
[2018-09-25] MEDS ORDERED: TIOT18INH INH (11:57)
[2018-09-25] MEDS ORDERED: THIA100T7 PO (11:57)
[2018-09-25 12:00] VITALS: BP 142/80
[2018-09-25 16:00] VITALS: BP 137/76
--- NOTE | 2018-09-25 19:35 | DSES ---
DATE OF ADMISSION: 09/21/2018 DATE OF DISCHARGE: 09/25/2018 PRIMARY CARE PROVIDER: Dr. Dilip Eden MANUFACTURING INTERN: Dr. Felix Sexton PSYCHIATRISTS: Dr. Mullins and Dr. Rutherford FINAL DIAGNOSES: 1. Acute chronic obstructive pulmonary disease (COPD) exacerbation secondary to influenza A. 2. Alcohol abuse with alcohol withdrawal. 3. Agitation. 4. Suicide attempt. 5. Smoking. 6. Poor compliance. HISTORY OF PRESENT ILLNESS: This is a 58-year-old male patient with underlying medical history of COPD, uses 2 liters of oxygen at night and 2 liters intermittently during daytime. The patient also has a history of alcohol abuse, as well as tobacco abuse. Drinks about three vodkas per day. He presented to the emergency room after visiting his tricot knitter, Dr. Sexton, presented with 2 to 3 days of cough with worsening sputum production, pleuritic chest pain, dyspnea on exertion, using oxygen [id number]. Shortness of breath not responding to nebulizer. Reported sick contact at home with the patient's grandson. Reported nausea, no vomiting. The patient denies any abdominal pain, constipation, diarrhea. He is influenza positive. Endorsed diffuse body aches. HOSPITAL COURSE: The patient was admitted to the hospital and started on steroids, as well as Tamiflu nebulizer treatments, inhalers, and CIWA protocol with benzodiazepine standing and as needed. The patient's hospital course was complicated with episodes of delirium. The patient was quite agitated. Furthermore, the patient had an argument with family and subsequently barricaded himself in the room, had a rope around his neck stating that his family does not want him to be back. Subsequently, psychiatry was consulted. The patient is currently comfortable, tolerating steroid taper and on oral medications. Passed physical therapy (PT). Smoking cessation counseling provided, nicotine provided, ready to be transferred for inpatient mental health unit for further care as per psychiatry. One-to-one sitter and plastic utensils were observed during the hospital course. VITAL SIGNS: Temperature 97.8, pulse 75, respirations 20, blood pressure 142/80, pulse oximetry 92% on 2 liters nasal cannula. LABORATORY DATA: WBC 9.6, hemoglobin and hematocrit 16.1/49.1, platelets 228. Chemistry: Sodium 137, potassium 4.0, chloride 103, bicarbonate 31, BUN 12, creatinine 0.72. PHYSICAL EXAMINATION: GENERAL: The patient is comfortable and in no acute distress. HEENT: Normocephalic, atraumatic. PULMONARY: Diffuse mild expiratory wheeze, coarse breath sounds. CARDIAC: Regular S1, S2. ABDOMEN: Soft, nontender. EXTREMITIES: No clubbing, cyanosis or edema. DISCHARGE MEDICATIONS: - folic acid 1 mg by mouth daily - multivitamin one tablet daily - thiamine 100 mg by mouth daily - Tamiflu 75 mg by mouth twice a day - Serax 10 mg by mouth every 4 hours as needed - prednisone taper - Zoloft 25 mg by mouth in the morning - acetaminophen 650 mg by mouth four times a day as needed - Ventolin inhaler four times a day as needed - Breo Ellipta inhalation daily DISCHARGE INSTRUCTIONS: Please see primary care provider in 7 days. Please see tricot knitter in 10 days after discharge. Smoking cessation. Stop alcohol use. Further care as per psychiatrist at inpatient mental health unit. Return to the hospital if symptoms worsen.
== END 2018-09-25 16:48 | DRG 194 ==
LOC: M ED 16:16 → M ED INP 21:11 → M MSPAV 09-22 16:26 → M ICU 09-23 15:23
PROVIDERS: ADMIT Internal Medicine; ATTEND Hospitalist
DX: J10.1 Influenza due to other identified influenza virus with other respiratory manifestations (principal); J44.1 Chronic obstructive pulmonary disease with (acute) exacerbation; T14.91XA Suicide attempt, initial encounter; F17.200 Nicotine dependence, unspecified, uncomplicated; Z79.899 Other long term (current) drug therapy; Z99.81 Dependence on supplemental oxygen; Z91.19 Patient's noncompliance with other medical treatment and regimen; Z88.5 Allergy status to narcotic agent; F10.97 Alcohol use, unspecified with alcohol-induced persisting dementia

== ENCOUNTER 2018-09-25 13:30 | Inpatient (IN) | payer MEDICARE, MEDICAID ==
[~2018-09-25] VITALS: Ht 175.3 cm; Wt 80.4 kg
[~2018-09-25 13:30] MED LIST changes: +ADVA230A INH; +BREO1INH3 INH; +INCR1INH INH; +OSEL75CA2 PO; +OXAZ10CA3 PO; +PRED10TA2 PO; +SERT25TA PO; +THIA100T7 PO; +TIOT18INH INH; +TYLE325T5 PO; +VENTAER INH; +VITMTA PO
[2018-09-25] MEDS ORDERED: MOM 30ML SUSPENSION UDC PO PRN (15:00)
[2018-09-25] MEDS ORDERED: MAALOX 30 ML SUSP *UDC PO PRN (15:00)
[2018-09-25] MEDS ORDERED: LORazepam 2 MG TAB PO PRN (15:45)
[2018-09-25 16:59] VITALS: BP 140/82
[2018-09-25] MEDS ORDERED: OXAZEPAM 10 MG CAP PO PRN ×2 (18:45→19:15)
[2018-09-25] MEDS: IPRATROPIUM 0.5MG/ALBUTEROL 2.5MG INH SOL UD 3ML (DUONEB)(J7620) NEB SCH (20:00)
[2018-09-25] MEDS: THIAMINE 100 MG TAB PO SCH (21:53)
[2018-09-25] MEDS: traZODone 50 MG TAB PO PRN ×2 (21:53→22:30)
[2018-09-25] MEDS: OSELTAMIVIR PHOSPHATE 75 MG CAP (TAMIFLU) PO SCH (21:53)
[2018-09-25] MEDS: ACETAMINOPHEN TAB 650MG DOSE (2X325MG) PO PRN (21:54)
[2018-09-25] MEDS: NICOTINE 21MG/24HR 1 EA TRANSDERMAL TD SCH (21:55)
[2018-09-25] MEDS: ADVAIR HFA 115/21MCG INHALER INH SCH (21:55)
[2018-09-25 22:20] VITALS: BP 152/96
[2018-09-25 22:21] VITALS: BP 152/96
[2018-09-25 23:20] VITALS: BP 134/75
[2018-09-26] MEDS: IPRATROPIUM 0.5MG/ALBUTEROL 2.5MG INH SOL UD 3ML (DUONEB)(J7620) NEB SCH ×6 (04:46→20:00)
[2018-09-26 06:00] VITALS: BP 135/83
[2018-09-26] MEDS ORDERED: predniSONE 2.5 MG TAB PO SCH (09:00)
[2018-09-26] MEDS: OSELTAMIVIR PHOSPHATE 75 MG CAP (TAMIFLU) PO SCH ×2 (09:18→21:23)
[2018-09-26] MEDS: OYSTER SHELL CALCIUM 500 MG TAB PO SCH (09:18)
[2018-09-26] MEDS: FOLIC ACID 1 MG TAB PO SCH (09:18)
[2018-09-26] MEDS: SERTRALINE HCL 25 MG TABLET PO SCH (09:18)
[2018-09-26] MEDS: MULTIVITAMINS/MINERALS THERAP 1 TAB PO SCH (09:18)
[2018-09-26] MEDS: LORazepam 1 MG TAB PO SCH ×3 (09:18→21:23)
[2018-09-26] MEDS: THIAMINE 100 MG TAB PO SCH ×2 (09:18→21:23)
[2018-09-26] MEDS: predniSONE 10 MG TAB PO SCH (09:18)
[2018-09-26] MEDS: ACETAMINOPHEN TAB 650MG DOSE (2X325MG) PO PRN (09:27)
[2018-09-26] MEDS: NICOTINE 21MG/24HR 1 EA TRANSDERMAL TD SCH (09:27)
[2018-09-26] MEDS: ADVAIR HFA 115/21MCG INHALER INH SCH ×2 (10:26→21:24)
[2018-09-26] MEDS: TIOTROPIUM INHALER/CAPSULE (SPIRIVA) INH SCH (11:53)
[2018-09-26 12:27] VITALS: BP 131/72
[2018-09-26 12:28] VITALS: BP 131/72
--- NOTE | 2018-09-26 13:14 | HPE ---
DATE OF ADMISSION: 09/25/2018 HISTORY OF THE PRESENT ILLNESS: Please refer to psychiatric history and evaluation for further details on this admission. This examination and history is intended for medical issues which may need treatment, follow-up or consult on this 58-year-old male who was transferred from the ICU unit where he had initially been for the treatment of severe acute exacerbation of chronic obstructive pulmonary disease (COPD), positive influenza, and alcohol withdrawal. He was treated with steroids, DuoNeb treatments, oxygen. He was placed on CIWA protocol, nicotine patch for tobacco abuse. He slowly improved and on 09/25 was felt to be stable to be transferred to the inpatient mental health unit where it was felt he needed to go because while on the medical/surgical floor he barricaded himself inside of a room and tried to hang himself with a (cut off) that he had made into a rope. A consult was done by Dr. Mullins the psychiatrist who felt that he was probably experiencing withdrawals, but he also had a high level of anxiety, uses alcohol, nicotine and marijuana as crutches to this. She felt the patient when medically stable should be discharged and admitted to the inpatient mental health unit. Labs on 09/25 showed normal white count of 9.6, hemoglobin 16.1, hematocrit 49.1, platelets 228, electrolytes were normal, BUN was 12, creatinine was 0.72, calcium slightly low at 7.8, C-reactive protein was still slightly elevated but much improved from admission. It had been 18.6 and today it was down to 1.97. ALLERGIES: 1. CODEINE. PAST MEDICAL HISTORY: Oxygen dependent COPD. Alcohol abuse. Tobacco abuse. PAST SURGICAL HISTORY: Hernia repair. SOCIAL HISTORY: He is . He smokes two packs of cigarettes per day. He drinks alcohol. He drinks at least three shots every night. He uses recreational marijuana. FAMILY HISTORY: Positive for cancer and diabetes. HOME MEDICATIONS: - albuterol one vial four times a day as needed shortness of breath or wheeze - Breo Ellipta 200-25 one inhalation daily - INCRUSE Ellipta 62.5 one inhalation daily REVIEW OF SYSTEMS: He had no complaint of headache. No fever. No chills. No tinnitus. No hoarseness. No difficulty swallowing. He stated he felt lightheadedness. No vertigo. Cardiovascular no complaints of chest pain. Had shortness of breath. No palpitations or edema. Respiratory he was short of breath. He had cough. He had scattered rhonchi with orthopnea. No hemoptysis. Gastrointestinal (GI): No nausea, vomiting or diarrhea. No hematochezia. No melena. No complaints of abdominal pain. Genitourinary (): No hematuria, dysuria or frequency. Musculoskeletal: No joint redness or swelling. Endocrine: No polyuria, polydipsia, polyphagia. Hematological: No history of anemia. Neurological: No seizure disorder. Psychological: See psychiatric HPI. PHYSICAL EXAMINATION: 58-year-old very anxious cooperative male in no acute distress. Blood pressure 138/78, pulse 69, respirations 18, 2 liters nasal cannula, temperature 98. Patient is alert and oriented times three. Pupils equal and react to light. Extraocular muscles intact. Cornea and sclerae are clear. Conjunctivae are normal. No facial asymmetry. Pharynx, tongue and gums are pink and moist. Tongue is midline. Neck is supple without lymphadenopathy. No thyromegaly. No goiter. Carotids are 2+ without bruit. Chest decreased breath sounds, rhonchi that clear with cough, few scattered expiratory wheeze. No retraction. Heart is regular. Abdomen is benign. Bowel sounds positive. /rectal not done. Extremities shoe equal strength, fullrom. No cyanosis, clubbing or edema. Hands have fine tremors. Peripheral pulses are equal and palpable bilaterally. Skin is moist. IMPRESSION/PLAN: 1. Psychiatric plan per psychiatry. 2. History of COPD and influenza. Continue thiamine. Continue DuoNeb treatments, every 4 hours. Nicotine patch for smoking cessation. Continue oxygen at 2 liters nasal cannula at bedtime and as needed. Continue prednisone taper. Continue multivitamin daily, thiamine daily. Continue Tamiflu. Add calcium supplement.
[2018-09-26 16:08] VITALS: BP 147/80
[2018-09-26 18:00] VITALS: BP 147/80
[2018-09-26] MEDS: traZODone 50 MG TAB PO PRN (21:23)
[2018-09-27] MEDS: IPRATROPIUM 0.5MG/ALBUTEROL 2.5MG INH SOL UD 3ML (DUONEB)(J7620) NEB SCH ×6 (00:43→20:00)
[2018-09-27 07:13] VITALS: BP 133/88
[2018-09-27] MEDS: TIOTROPIUM INHALER/CAPSULE (SPIRIVA) INH SCH (07:54)
[2018-09-27] MEDS: ADVAIR HFA 115/21MCG INHALER INH SCH ×2 (07:55→20:15)
[2018-09-27] MEDS: NICOTINE 21MG/24HR 1 EA TRANSDERMAL TD SCH (09:35)
[2018-09-27] MEDS: LORazepam 1 MG TAB PO SCH ×3 (09:36→20:13)
[2018-09-27] MEDS: OSELTAMIVIR PHOSPHATE 75 MG CAP (TAMIFLU) PO SCH ×2 (09:36→20:13)
[2018-09-27] MEDS: THIAMINE 100 MG TAB PO SCH ×2 (09:36→20:13)
[2018-09-27] MEDS: MULTIVITAMINS/MINERALS THERAP 1 TAB PO SCH (09:36)
[2018-09-27] MEDS: SERTRALINE HCL 25 MG TABLET PO SCH (09:36)
[2018-09-27] MEDS: predniSONE 10 MG TAB PO SCH (09:36)
[2018-09-27] MEDS: FOLIC ACID 1 MG TAB PO SCH (09:36)
[2018-09-27] MEDS: OYSTER SHELL CALCIUM 500 MG TAB PO SCH (09:36)
--- NOTE | 2018-09-27 11:24 | MHHPEPDOC ---
General Date Of Admission: Sep 26, 2018 Legal Status: 9.37 Chief Complaint "S/P attempted hanging in ED due to overhearing he made need to be put on oxygen for severe COPD." History of Present Illness HISTORY OF THE PRESENT ILLNESS: Patient is a 58 -year-old , male, who per Dr. Mullins consult note: "This is a 58 year old male who came to the hospital for an acute exacerbation of COPD. He says he still drank alcohol the night he came into the hospital. Apparently he barricaded himself inside of a room in [facility] and tried to hung himself with a sheet that he had made it into a rope. He had previous admissions to [facility] in 2014 and 2016, when he was diagnosed and treated for depression, anxiety and alcohol use disorder. He was prescribed Celexa but he stopped taking it since several years ago." Psychiatric Review of Systems Depression (2 or more weeks): depressed mood, feelings of worthlesness, difficulty concentrating, suicidal thoughts Renee (4 or more days of): denies Psychosis: denies PTSD: denies Anxiety: situational anxiety, stressor related anxiety Anxiety/ 6 months or more of: difficulty concentrating Past Psychiatric History Previous Psychiatric Diagnosis: anxiety, depression and substance abuse Previous Psychiatric Admissions: admissions to [facility] in 2014 and 2016 Suicide Attempts: 2016 SA via OD on pills Psychiatric Follow-up: [facility] in the past Psychiatric medications: celexa in the past Past Medical History Medical Problems COPD, umbilical hernia repair a couple of years ago and has chronic back pain Head Injury: No Seizures: No Hospitalizations: Yes Surgeries: Yes (umbilical hernia repair a couple of years ago) Family Medical/Psychiatric HX Medical Problems noncontributory Mother: Father: Siblings: A brother and a sister. Children: Two children ( Adult children. He lives with his , his daughter and his grandchildren. His son moved out) Psychiatric Disorders: No Addiction: No Suicide Attemps/Completions: No Addiction History nicotine, alcohol Social History Childhood: born and raised in [place], [place]. He reports his father was working at [employer]. He has a brother who is 57 and a younger sister who is 53. Brother lives in [place]. His brother visits him occasionally. Both of his parents . 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 He lost his job and has been having financial problems ever since. Social Support: , family, kids Legal: denies Marital: 33 yrs, adult son and daughter Mental Status Examination General Appearance: well groomed, appears stated age, hospital scubs/clothing Build: average Demeanor: average, withdrawn Eye Contact: fair Activity: slowed Behavior: cooperative, withdrawn Speech: clear, reg/rate,rhythm,volume Mood: depressed Mood depressed in the room Affect: constricted, flat, congruent Thought Process: logical/linear, depressed Thought Content (Delusions): none reported, denies SI, HI, AVH Thought Content (Other): none reported, appropriate Thought Content (Aggressive): none reported Perception (Hallucinations): none reported Perception (Other): none reported Cognition (Impairment of): none reported Cognition(Intelligence Est.): average Oriented: Awake, Alert, Oriented times three Insight: fair Judgment: Fair Psychosis: Denies Diagnoses Depression unspecified R/o depression due to GME COPD Assessment Pt seen today and states he's depressed in being in room seclusion due to having the flu is not helpful. States he's trying to keep himself occupied by doing crossword puzzles and reading magazines. States he's tolerating his medication and feels it's helping some. Denies SI and regrets SA in the ED stating he didn't think and just did it out of fearing he may have to walk out in public wearing oxygen even though states his glazier supervisor told he can wear a hidden oxygen tank that he only uses as needed which he states he's learned to accept. Denies alcohol withdrawal. Agreeable to celexa for mood which he's taken in the past and found helpful. Risks/benefits discussed. Denies SI/HI hallucinations, delusions. Feels safe here. Breathing improved with nebulizer treatments and supportive treatment for the flu. Initial Treatment Plan 1. Patient was admitted on a 9.37 status. 2. Complete history was obtained. 3. With patients permission, family will be contacted and database will be expanded. 4. Patients medication regimen will be reviewed and changed accordingly. 5. Patient will be provided with protected environment. 6. Patient will be treated with individual, group, and milieu therapies. 7. Patient will receive supportive psych-education. 8. Discharge planning will commence immediately. 9. Outpatient follow-up treatment will be strongly recommended. 10. The initial treatment plan will focus initially on: * Depression. * Risk for suicide. * Substance abuse. 11. Celexa 10mg daily for mood, continue [facility] protocol for alcohol withdrawal ESTIMATED LENGTH OF STAY: 5-7 DAYS. TIME SPENT COUNSELING AND COORDINATING INITIAL CARE: minutes. Vital Signs Vital Signs Date Time Temp Pulse Resp B/P (MAP) Pulse Ox O2 Delivery O2 Flow Rate FiO2 09/27/18 07:13 99.4 95 14 133/88 (103) 09/26/18 06:00 2.0 09/25/18 23:20 95 09/25/18 17:10 Room Air Medications Scheduled (Incruse Ellipta) 62.5 Mcg/Inh Inh, 62.5 MCG INH DAILY for COPD, (Reported) Fluticasone/Vilanterol (Breo Ellipta 200-25 Mcg/INH) 1 Inh Inh, 1 PUFF INH DAILY for COPD, (Reported) Scheduled PRN Acetaminophen (Tylenol) 325 Mg Tab, 650 MG PO QID PRN for PAIN, (Reported) Albuterol Sulfate (Ventolin Hfa) 108 Mcg/Act Aer, 2 PUFFS INH QID PRN for SHORTNESS OF BREATH, (Reported) Albuterol Sulfate (Albuterol Sulfate) 2.5 Mg/3 Ml Nebu, 2.5 MG INH QID PRN for SHORTNESS OF BREATH, (Reported) Allergies Coded Allergies: No Known Drug Allergy (Verified Allergy, Unknown, 11/08/12) Codeine (Verified Adverse Reaction, Intermediate, VOMIT, 11/08/12) TUSHAR LATHAM DO Sep 27, 2018 11:24
[2018-09-27] MEDS ORDERED: CitaloPRAM (CeleXA) 10 MG TABLET PO ONE (11:30)
[2018-09-27 12:04] VITALS: BP 127/81
[2018-09-27 12:20] VITALS: BP 127/81
[2018-09-27 18:00] VITALS: BP 138/86
[2018-09-27 19:01] VITALS: BP 138/86
[2018-09-27] MEDS: traZODone 50 MG TAB PO PRN (20:13)
[2018-09-27 22:00] VITALS: BP 120/80
[2018-09-28] MEDS: IPRATROPIUM 0.5MG/ALBUTEROL 2.5MG INH SOL UD 3ML (DUONEB)(J7620) NEB SCH ×6 (02:06→19:59)
--- NOTE | 2018-09-28 03:21 | MHHPE ---
DATE OF ADMISSION: 09/25/2018 DATE OF EVALUATION: 09/26/2018 HISTORY OF PRESENT ILLNESS: This is one of multiple admissions for this 58-year-old white man who I was asked to see. He was admitted to the medicine service for exacerbation of his chronic obstructive pulmonary disease (COPD) and influenza A. While he was in the hospital, apparently he had an argument with his and he barricaded himself in his room and he took one of the bed sheets and put it over his neck. The patient insists that he does not remember doing that. He does admit that "maybe I was trying to get attention." He states, "I don't think that I was trying to kill myself." He does admit that recently he became very overwhelmed when he was told that he might need to be chronically on oxygen. He has COPD and still continues to smoke. The patient was actually seen by Dr. Mullins on 09/23/2018 on the day that he apparently had made the suicidal gesture as noted above. According to Dr. Mullins, the patient has problems with depression, anxiety, alcohol abuse and cannabis abuse. Again, when she saw him she started him on Zoloft 25 mg every morning. He told her that he also did not remember what he had done. Dr. Mullins felt, and I agree with her that he possibly was experiencing some withdrawal from alcohol. He also stated that he has high anxiety levels and that he feels that he self-medicates with alcohol. Also, she indicated that the patient might need to be admitted to the inpatient mental health unit once he is medically stable. When I was requested to see the patient there were some indications that they thought the patient might be having some problems with his memory but the patient has a significant problem with alcohol abuse. He drinks about 3 vodkas every day but he has little insight as he says, "I use to drink a lot more." PAST PSYCHIATRIC HISTORY: The patient has had prior psychiatric hospitalization in 2016 and at that point he was diagnosed with major depressive disorder without psychiatric features, alcohol use disorder and cannabis. He was admitted because he was having some suicidal thoughts at that time. He was treated with Lexapro and Campral and trazodone. MEDICAL HISTORY: The patient has trouble with chronic back pain. FAMILY HISTORY: There is no history of suicides in the family or of any psychiatric illness in the family. SUBSTANCE ABUSE HISTORY: He has a pretty serious problem with abusing alcohol and he also abuses cannabis. ABUSE HISTORY: The patient has no history of any physical or sexual abuse. REVIEW OF SYSTEMS: VITAL SIGNS: Blood pressure 140/82, pulse 80, respirations 18. APPEARANCE: The patient did not appear to be in any apparent distress. NEUROMUSCULAR SYSTEM: The patient's gait was normal. There were no involuntary movements. All other systems were reviewed and found to be negative. MENTAL STATUS EXAMINATION: This patient is alert and oriented times three. Eye contact is fairly good. He is verbally spontaneous. Psychomotor activity is normal. There is no formal thought disorder noted. Mood is anxious and depressed. Affect is full range. He is denying suicidal or homicidal ideations; however, he did make what appreciated to be a suicidal gesture as noted above. Concentration is fair. His memory was grossly intact. He actually was able to remember 3/3 words immediately though he could only remember 2/3 words in five minutes but he was able to spell "world" backwards. He could describe parts of objects. He was alert and oriented times three and overall he did very well on the Mini-Mental State Examination and it seems the only one that he missed was the 5-minute recall of only 2/3 words. Insight and judgment is fair. DIAGNOSES: 1. Other specified depressive disorder. 2. Generalized anxiety disorder. 3. Alcohol use disorder, severe. 4. Cannabis use disorder, mild. 5. Alcohol withdrawal syndrome. RECOMMENDATIONS: At this point, the patient admits to having ongoing problems with anxiety and also depression. He has been started on Zoloft 25 mg daily and this will be titrated as indicated. We are monitoring the patient with Clinical [place] Withdrawal Assessment for Alcohol (CIWA) and the patient has required some as needed Ativan due to withdrawal from alcohol so we will continue to complete detoxification though continue to feel that it is possible that his behavior in the hospital was during a time that maybe he might have been having some confusion due to his withdrawal syndrome. He continues to deny that he has any suicidal ideations.
[2018-09-28 06:39] VITALS: BP 137/88
[2018-09-28] MEDS: ADVAIR HFA 115/21MCG INHALER INH SCH ×2 (07:52→20:00)
[2018-09-28] MEDS: TIOTROPIUM INHALER/CAPSULE (SPIRIVA) INH SCH (07:52)
[2018-09-28] MEDS: NICOTINE 21MG/24HR 1 EA TRANSDERMAL TD SCH (09:19)
[2018-09-28] MEDS: OYSTER SHELL CALCIUM 500 MG TAB PO SCH (09:19)
[2018-09-28] MEDS: predniSONE 10 MG TAB PO SCH (09:19)
[2018-09-28] MEDS: CitaloPRAM (CeleXA) 10 MG TABLET PO SCH (09:19)
[2018-09-28] MEDS: LORazepam 1 MG TAB PO SCH ×3 (09:19→21:17)
[2018-09-28] MEDS: SERTRALINE HCL 25 MG TABLET PO SCH (09:19)
[2018-09-28] MEDS: OSELTAMIVIR PHOSPHATE 75 MG CAP (TAMIFLU) PO SCH ×2 (09:19→21:17)
--- NOTE | 2018-09-28 09:50 | MHCR ---
DATE OF CONSULTATION: 09/25/2018 I was asked to see this 58-year-old white man to evaluate whether the patient was appropriate for transfer to the inpatient mental health unit since he was medically stable. Of note was that the patient was seen by Dr. Mullins on 09/23/2018 after the patient had made what appeared to be a possible suicidal gesture. He apparently had an argument with his and then he barricaded himself in his room and he took the bed sheet and he tried to put it around his neck. When Dr. Mullins saw him, he indicated that he did not remember the event which happens to be the same thing that he told me. Dr. Mullins thought that maybe he was still having some confusion from alcohol withdrawal. I believe that this is probably the case. The patient was started on Zoloft 25 mg daily since the patient admitted to having a lot of ongoing problems with anxiety and some depression. He admits that one of his recent stressor is that he was told that he would be needing to be on chronic oxygen, of note is that he still continues to smoke cigarettes although he says he has cut down. He continues to insist he does not remember the suicidal gesture. He states "I was trying to get attention. I don't think that I was trying to kill myself". PAST PSYCHIATRIC HISTORY: The patient has a history of prior psychiatric admission at [facility] inpatient mental health unit from 09/11/2015 to 09/25/2015 diagnosed with Major depressive disorder, severe without psychotic features, Alcohol use disorder and Cannabis use disorder and he was treated with Celexa. PAST MEDICAL HISTORY: The patient has chronic back pain and he has chronic obstructive pulmonary disease (COPD) with influenza A currently. FAMILY HISTORY: There is no family history of suicide or any psychiatric illness. ABUSE HISTORY: There is no history of any physical or sexual abuse. SUBSTANCE ABUSE HISTORY: This is as noted above. He is drinking about three Vodka's daily but says he used to drink a lot more before and it seems that he uses cannabis on and off. MENTAL STATUS EXAMINATION: He is alert and oriented times three. Eye contact is fairly good. He is verbally spontaneous. There is no formal thought disorder noted. Mood is anxious and depressed. Affect full range and appropriate. He is not psychotic. He is denying suicidal or homicidal ideations now but he did make a recent suicidal gesture as noted above in the hospital. I did do a mini mental exam and he did well on the whole exam except for recall of three words in five minutes. He was only able to recall two out of three words in five minutes. Insight and judgment fair. DIAGNOSIS: Other specified depressive disorder. Generalized anxiety disorder. Alcohol use disorder, severe. Cannabis use disorder, mild. Alcohol withdrawal syndrome. RECOMMENDATIONS: At this point since the patient is medically stable, and due to the fact that he made a recent suicidal gesture in the hospital, and keeps telling us he does not recall the event, admitting that he does have depression and anxiety, I feel it is appropriate to admit him to the inpatient mental health unit for further evaluation and treatment. [facility]
--- NOTE | 2018-09-28 11:23 | MHIPNPDOC ---
[facility] Progress Note Progress Note DATE OF SERVICE: 09/28/18 HISTORY: Patient is a 58 -year-old , male, who per Dr. Mullins consult note: "This is a 58 year old male who came to the hospital for an acute exacerbation of COPD. He says he still drank alcohol the night he came into the hospital. Apparently he barricaded himself inside of a room in [facility] and tried to hung himself with a sheet that he had made it into a rope. He had previous admissions to [facility] in 2014 and 2016, when he was diagnosed and treated for depression, anxiety and alcohol use disorder. He was prescribed Celexa but he stopped taking it since several years ago." VITAL SIGNS: See below. NEW TEST RESULTS:See below. CURRENT MEDICATIONS: See below. MENTAL STATUS EXAMINATION: This patient is alert and oriented times three. Eye contact is fairly good. He is verbally spontaneous. Psychomotor activity is normal. There is no formal thought disorder noted. Mood is anxious and depressed. Affect is full range. He is denying suicidal or homicidal ideations. Concentration is fair. At times talks about that same things he did yesterday such as why attempted SI. His memory was grossly intact. He actually was able to remember 3/3 words immediately though he could only remember 2/3 words in five minutes but he was able to spell "world" backwards. He could describe parts of objects. Per Dr. Rutherford "He was alert and oriented times three and overall he did very well on the Mini-Mental State Examination and it seems the only one that he missed was the 5-minute recall of only 2/3 words." Insight and judgment is fair. DIAGNOSES: Depression unspecified R/o depression due to GME COPD Alcohol use disorder, severe Cannabis use disorder, mild. Alcohol withdrawal syndrome. ASSESSMENT:Pt seen today and states he's depressed being in room seclusion even though moved to new room with window to unit and outside. He made sarcastic jokes about it. Continues to have the flu and wears mask in milieu when he walks around which is helpful somewhat to his mood. Encouraged to walk milieu for at least 15min each hour to aid mood thru less isolation in room and talk to people. States he's trying to keep himself occupied by doing crossword puzzles and reading magazines still. came to visit and received bad new that a cousin due to accidental drug overdose which he's coping with well. States he's tolerating his medication and feels it's helping. Denies SI and regrets SA in the ED stating he didn't think and just did it out of fearing he may have to walk out in public wearing oxygen even though states his track inspector told he can wear a hidden oxygen tank that he only uses as needed which he states he's learned to accept. Denies alcohol withdrawal. Pt repeating much of that same info with no recollection on previously discussing with me such as why attempted suicide, what his track inspector told him. Will check liver profile and ammonia level today to monitor. Hopeful to go home soon and be around family as believes that will be beneficial to his mood b/c he won't have to be secluded to a room at home. Denies SI/HI hallucinations, delusions. Feels safe here. Breathing improved with nebulizer treatments and supportive treatment for the flu. MANAGEMENT PLAN: continue current plan. check liver profile and ammonia level Celexa 10mg daily for mood wa protocol for alcohol withdrawal TIME SPENT: 30 minutes. Vital Signs Vital Signs Date Time Temp Pulse Resp B/P (MAP) Pulse Ox O2 Delivery O2 Flow Rate FiO2 09/28/18 06:39 99.5 71 18 137/88 (104) 09/26/18 06:00 2.0 09/25/18 23:20 95 09/25/18 17:10 Room Air Current Medications Current Medications Acetaminophen (Tylenol Tab) 650 mg Q6HP PRN PO HEADACHE or DISCOMFORT Last administered on 09/26/18at 09:27; Start 09/25/18 at 15:00 Al Hydrox/Mg Hydrox/Simethicone (Mylanta) 30 ml Q4HP PRN PO HEARTBURN/INDIGESTION; Start 09/25/18 at 15:00 Albuterol/ Ipratropium (Duoneb (Ipr 0.5mg/Alb 2.5mg)) 3 ml RQ4H NEB Last administered on 09/28/18at 07:52; Start 09/25/18 at 20:00 Calcium Carbonate (Oscal) 500 mg DAILY PO Last administered on 09/28/18at 09:19; Start 09/26/18 at 09:00 Citalopram Hydrobromide (CeleXA) 10 mg DAILY PO Last administered on 09/28/18 09:19; Start 09/28/18 at 09:00 Folic Acid (Folic Acid) 1 mg DAILY PO Last administered on 09/27/18at 09:36; Start 09/26/18 at 09:00; Stop 09/27/18 at 22:19; Status DC Home Med (Med Rec Complete!) ASDIRECTED XX ; Start 09/25/18 at 20:30; Stop 09/25/18 at 20:30; Status DC Lorazepam (Ativan) 1 mg TID PO Last administered on 09/28/18 09:19; Start 09/26/18 at 09:00 Lorazepam (Ativan) 2 mg ASDIRECTED PRN PO SEE PROTOCOL Last administered on 09/25/18at 22:30; Start 09/25/18 at 15:45; Stop 09/27/18 at 22:19; Status DC Magnesium Hydroxide (Milk Of Magnesia) 30 ml DAILYPRN PRN PO CONSTIPATION; Start 09/25/18 at 15:00 Multivitamins (Theragram-M) 1 tab DAILY PO Last administered on 09/27/18at 09:36; Start 09/26/18 at 09:00; Stop 09/27/18 at 22:19; Status DC Nicotine (Nicoderm Cq 21mg) 1 patch DAILY TD Last administered on 09/28/18 09:19; Start 09/25/18 at 19:06 Oseltamivir Phosphate (Tamiflu) 75 mg BID PO Last administered on 09/28/18at 09:19; Start 09/25/18 at 21:00 Oxazepam (Serax) 30 mg Q6HP PRN PO AGITATION; Start 09/25/18 at 18:45; Stop 09/25/18 at 19:16; Status DC Oxazepam (Serax) 30 mg QID PRN PO AGITATION Last administered on 09/25/18at 22:38; Start 09/25/18 at 19:15; Status Cancel Prednisone (Deltasone) 30 mg DAILY PO ; Start 09/26/18 at 09:00; Stop 09/26/18 at 09:00; Status DC Prednisone (Deltasone) 30 mg DAILY PO Last administered on 09/28/18 09:19; Start 09/26/18 at 09:00 Salmeterol Xinafoate/ Fluticasone (Advair Hfa 115/ 21) 2 puff BID INH Last administered on 09/28/18 07:52; Start 09/25/18 at 21:00 Sertraline HCl (Zoloft) 25 mg DAILY PO Last administered on 09/28/18 09:19; Start 09/26/18 at 09:00 Thiamine HCl (Thiamine HCl) 100 mg BID PO Last administered on 09/27/18 20:13; Start 09/25/18 at 21:00; Stop 09/27/18 at 22:19; Status DC Tiotropium [place] (Spiriva Handihaler) 1 inhalation DAILY@08 INH Last administered on 09/28/18 07:52; Start 09/26/18 at 08:00 Trazodone HCl (Desyrel) 50 mg QHSP PRN PO INSOMNIA Last administered on 09/27/18 20:13; Start 09/25/18 at 15:00 Allergies Coded Allergies: No Known Drug Allergy (Verified Allergy, Unknown, 11/08/12) Codeine (Verified Adverse Reaction, Intermediate, VOMIT, 11/08/12) TUSHAR LATHAM DO Sep 28, 2018 11:23 am
--- NOTE | 2018-09-28 11:34 | IPNPDOC ---
Date Seen The patient was seen on 09/28/18. Progress Note HPI: 58yoM admitted to [facility] for depressive disorder, being medically examined today. No acute medical complaints today. States he is not having any cough or sputum. Overall feeling better. States repsiratory status back to baseline. Denies any fevers, chills, weakness, fatigue, LUIS, CP, SOB, cough, palpitations, abdominal pain, N/V/D or changes in bowel or bladder habits. PAST MEDICAL HISTORY: Oxygen dependent COPD. Alcohol abuse. Tobacco abuse. H/O SI/SA h/o non compliance PAST SURGICAL HISTORY: Hernia repair. PE: GEN: 58yoM, appears stated age. No acute distress. Alert and oriented x 3. HEENT: Normocephalic, atraumatic. Sclera are nonicteric. Conjunctiva without injection. Chest Good A/E no wheezes. Ext: No lower extremity edema appreciated. SKIN: [place], dry, warm. No rashes. NEURO: No focal deficits appreciated. EKG SINUS RHYTHM NONSPECIFIC T-WAVE ABNORMALITY INCREASED RATE 10/08/15 Electronically Signed On 09-21-2018 19:12:57 EST by Betty Cason DD: Betty Cason MD 09/21/18 1635 A&P: 58yoM admitted to [facility] for depressive disorder 1. Psych. Plan per Psychiatry. EKG on file. 2. Nicotine dependence. Patch available. 3. COPD. Continue Spiriva/Advair/nebs/O2. Plan is for tapering po prednisone, pt is not on steroids as outpt. 4. Influenza. Tamiflu D7/7 today. Pt is afebrile. Symptoms have resolved. D/C precautions tomorrow. 4. Follow up with PCP on discharge. 5. Staff member Bill present during exam. VS, I&O, 24H, Fishbone Vital Signs/I&O Vital Signs Date Time Temp Pulse Resp B/P (MAP) Pulse Ox O2 Delivery O2 Flow Rate FiO2 09/28/18 06:39 99.5 71 18 137/88 (104) 09/26/18 06:00 2.0 09/25/18 23:20 95 09/25/18 17:10 Room Air Danii De Luna Sep 28, 2018 11:34
[2018-09-28 13:32] LABS: ALBUMIN 3.5 GM/DL (3.2-5.2); BILIRUBIN,DIRECT 0.2 MG/DL (0.0-0.2); BILIRUBIN,TOTAL 0.9 MG/DL (0.2-1.0); TOTAL PROTEIN 6.8 GM/DL (6.4-8.2)
[2018-09-28 18:00] VITALS: BP 140/77
[2018-09-28] MEDS: traZODone 50 MG TAB PO PRN (21:14)
[2018-09-29] MEDS: IPRATROPIUM 0.5MG/ALBUTEROL 2.5MG INH SOL UD 3ML (DUONEB)(J7620) NEB SCH ×5 (04:00→11:17)
[2018-09-29 06:00] VITALS: BP 127/79
[2018-09-29] MEDS ORDERED: predniSONE 20 MG TAB PO SCH (09:00)
--- NOTE | 2018-09-29 09:09 | MHDSPDOC ---
[facility] Discharge Summary Discharge Summary DATE OF ADMISSION: Sep 25, 2018 at 4:50 pm DATE OF DISCHARGE: Sep 29, 2018 DISCHARGE DIAGNOSES: Depression unspecified R/o depression due to GME COPD Alcohol use disorder, severe Cannabis use disorder, mild. Alcohol withdrawal syndrome. REASON FOR ADMISSION: Patient is a 58 -year-old , male, who per Dr. Mullins consult note: "This is a 58 year old male who came to the hospital for an acute exacerbation of COPD. He says he still drank alcohol the night he came into the hospital. Apparently he barricaded himself inside of a room in [facility] and tried to hung himself with a sheet that he had made it into a rope. He had previous admissions to [facility] in 2014 and 2015, when he was diagnosed and treated for depression, anxiety and alcohol use disorder. He was prescribed Celexa but he stopped taking it since several years ago." CONSULTANTS INVOLVED: Medicine follow pt to continue treatment for copd with daily neb treatments and the flu with a completed course of Tamiflu during admission after pt transferred from medical floor. TREATMENT AND PROGRESS ON THE UNIT : Pt was admitted to [facility], seen for psychiatric assessment and started on celaxa 10mg daily that he had taken in the past and found beneficial for mood. He was followed by medicine as stated above. He was provided trazodone 50mg qhs prn insomnia. He was placed on ciwa protocol with available ativan that he tolerated well with no longer requiring ativan for alcohol withdraw longer than 24hrs prior d/Luis Alberto was put on room seclusion and wore a mask when in the milieu due to having the flu until he completed tamiflu course. Pt found his medications beneficial and tolerated them well. His symptoms improved with treatment. On day of discharge he denied depression, anxiety, insomnia, SI/HI, hallucinations, delusions. He was discharged home after family meeting with his with follow-up at [facility]. He felt safe for discharge. DISCHARGE ASSESSMENT: Pt seen today and states he's doing now that he no longer has to be secluded in his room since completing his course of tamiflu. States he's looking forward to going home and being with his family. States he feels physically better and denies flu-like symptoms. States he's tolerating his medication and feels it's helping. Denies SI and regrets SA in the ED stating he didn't think and just did it out of fearing he may have to walk out in public wearing oxygen even though states his chemical detection expert told he can wear a hidden oxygen tank that he only uses as needed which he states he's learned to accept. Denies alcohol withdrawal. Denies depression, anxiety, insomnia, SI/HI hallucinations, delusions. Feels safe to d/c home with his . MENTAL STATUS EXAMINATION ON DISCHARGE: his patient is alert and oriented times three. Eye contact is good. He is verbally spontaneous. Psychomotor activity is normal. There is no formal thought disorder noted. Mood is "good". Affect is full range, euthymic, bright. He is denying suicidal or homicidal ideations. Concentration is good. His memory was grossly intact. He actually was able to remember 3/3 words immediately though he could only remember 2/3 words in five minutes but he was able to spell "world" backwards. He could describe parts of objects. Per Dr. Rutherford "He was alert and oriented times three and overall he did very well on the Mini-Mental State Examination and it seems the only one that he missed was the 5-minute recall of only 2/3 words." Insight and judgment is good. MEDICATIONS ON DISCHARGE: - Celexa 10mg daily for mood - trazodone 50mg qhs prn insomnia. PLAN/FOLLOWUP ARRANGEMENTS: D/c home with follow-up [facility] and his chemical detection expert. The amount of time spent in the coordination of care for this patient was approximately 30 minutes. Vital Signs/I&Os Vital Signs Date Time Temp Pulse Resp B/P (MAP) Pulse Ox O2 Delivery O2 Flow Rate FiO2 09/29/18 06:00 99.1 69 20 127/79 (95) 09/28/18 11:59 Room Air 09/26/18 06:00 2.0 09/25/18 23:20 95 Laboratory Data Labs 24H Laboratory Tests 2 09/28/18 12:07: Aspartate Amino Transf (AST/SGOT) 31, Alanine Aminotransferase (ALT/SGPT) 90H, Alkaline Phosphatase 68, Total Bilirubin 0.9, Direct Bilirubin 0.2, Ammonia 28, Total Protein 6.8, Albumin 3.5, Albumin/Globulin Ratio 1.06 Medications Scheduled (Incruse Ellipta) 62.5 Mcg/Inh Inh, 62.5 MCG INH DAILY for COPD, (Reported) Fluticasone/Vilanterol (Breo Ellipta 200-25 Mcg/INH) 1 Inh Inh, 1 PUFF INH DAILY for COPD, (Reported) Scheduled PRN Acetaminophen (Tylenol) 325 Mg Tab, 650 MG PO QID PRN for PAIN, (Reported) Albuterol Sulfate (Ventolin Hfa) 108 Mcg/Act Aer, 2 PUFFS INH QID PRN for SHORTNESS OF BREATH, (Reported) Albuterol Sulfate (Albuterol Sulfate) 2.5 Mg/3 Ml Nebu, 2.5 MG INH QID PRN for SHORTNESS OF BREATH, (Reported) Allergies Coded Allergies: No Known Drug Allergy (Verified Allergy, Unknown, 11/08/12) Codeine (Verified Adverse Reaction, Intermediate, VOMIT, 11/08/12) TUSHAR LATHAM DO Sep 29, 2018 9:09 am
[2018-09-29] MEDS ORDERED: TRAZO50TA PO (09:11)
[2018-09-29] MEDS ORDERED: CELE10TA PO (09:11)
[2018-09-29] MEDS: CitaloPRAM (CeleXA) 10 MG TABLET PO SCH (09:22)
[2018-09-29] MEDS: OYSTER SHELL CALCIUM 500 MG TAB PO SCH (09:23)
[2018-09-29] MEDS: OSELTAMIVIR PHOSPHATE 75 MG CAP (TAMIFLU) PO SCH (09:23)
[2018-09-29] MEDS: ADVAIR HFA 115/21MCG INHALER INH SCH (09:23)
[2018-09-29] MEDS: LORazepam 1 MG TAB PO SCH (09:23)
[2018-09-29] MEDS: SERTRALINE HCL 25 MG TABLET PO SCH (09:23)
[2018-09-29] MEDS: TIOTROPIUM INHALER/CAPSULE (SPIRIVA) INH SCH (09:23)
[2018-09-29] MEDS: NICOTINE 21MG/24HR 1 EA TRANSDERMAL TD SCH (09:24)
== END 2018-09-29 12:00 | disposition home or self-care (01) | DRG 881 ==
LOC: M PSY 16:50
PROVIDERS: ADMIT Psychiatry & Neurology Psychiatry; ATTEND Psychiatry & Neurology Psychiatry
DX: F32.9 Major depressive disorder, single episode, unspecified (principal); R45.851 Suicidal ideations; J44.9 Chronic obstructive pulmonary disease, unspecified; F10.10 Alcohol abuse, uncomplicated; F12.90 Cannabis use, unspecified, uncomplicated; Z88.5 Allergy status to narcotic agent; Z99.81 Dependence on supplemental oxygen; Z91.19 Patient's noncompliance with other medical treatment and regimen

== ENCOUNTER → 2019-04-15 | Outpatient (CLI) | payer MEDICARE, MEDICAID ==
[~2019-04-15] MED LIST changes: -/ADVA50050 IN; -/TIOT18INH INH; +ADVA1AER2 IN; +CELE10TA PO; -CITA20TA4 PO; +CITA20TA6 PO; +HYDR-2541 PO; -HYDR25TAB PO; -SERT25TA PO; +SERT25TA85 PO; +SPIR1CAP INH; -TRAZ-160 PO; +TRAZ-252 PO; +TRAZ1TAB10 PO
[2019-04-15 12:26] LABS: ALBUMIN 3.9 GM/DL (3.2-5.2); ALT/SGPT 31 U/L (12-78); BILIRUBIN,TOTAL 0.7 MG/DL (0.2-1.0); BLOOD UREA NITROGEN 8 MG/DL (7-18); CALCIUM LEVEL 9.4 MG/DL (8.8-10.2); CARBON DIOXIDE LEVEL 30 MEQ/L (21-32); CHLORIDE LEVEL 104 MEQ/L (98-107); CHOLESTEROL LEVEL 249 MG/DL (<200); CHOLESTEROL RISK RATIO 4.446 (<5); GLOMERULAR FILTRATION RATE > 60.0 (>49); GLUCOSE, FASTING 82 MG/DL (70-100); HDL CHOLESTEROL 56 MG/DL (>40); LDL CHOLESTEROL 167 MG/DL (<100); NON-HDL-C 193 MG/DL; POTASSIUM SERUM 4.1 MEQ/L (3.5-5.1); SODIUM LEVEL 140 MEQ/L (136-145); TOTAL PROTEIN 7.1 GM/DL (6.4-8.2); TRIGLYCERIDES LEVEL 132 MG/DL (<150)
[2019-04-15 12:30] LABS: HEMOGLOBIN A1c 5.4 %
== END ==
LOC: M LAB 10:49
PROVIDERS: ATTEND Family Medicine
DX: E78.5 Hyperlipidemia, unspecified (principal); Z13.1 Encounter for screening for diabetes mellitus; Z12.5 Encounter for screening for malignant neoplasm of prostate
CPT/HCPCS: 36415; 80053; 80061; 83036; G0103

== ENCOUNTER → 2019-10-28 | Outpatient (CLI) | payer MEDICARE, MEDICAID ==
--- NOTE | 2019-10-28 08:54 | REP ---
CT chest without contrast: Low-dose screening exam. History: Nicotine dependence. Comparison chest CT studies are from November 21, 2016 and November 23, 2017. Findings: Preliminary digital covering and lining supervisor radiograph is unremarkable. Linear pleuroparenchymal fibrosis again noted in the left lower lobe, lingula, and left upper lobe. This is unchanged. There are some areas of retained endobronchial secretions and possible bronchiectasis in the right upper lobe. This may reflect bronchitis. There is no visible pulmonary nodule. No lung mass lesion is seen. The study is otherwise unremarkable. Impression: Lung RADS category one findings. Repeat screening exam recommended 1 year. Electronically Signed by Tod Medina MD 10/28/2019 08:46 A
== END ==
LOC: M RAD 08:26
PROVIDERS: ATTEND Physician Assistant
DX: F17.218 Nicotine dependence, cigarettes, with other nicotine-induced disorders (principal)

== ENCOUNTER → 2019-12-20 | Outpatient (REF) | payer MEDICARE, MEDICAID ==
[2019-12-20 16:04] LABS: BASO # 0.1 10^3/uL (0.0-0.2); BASO % 0.7 % (0.0-1.0); EOS # 0.2 10^3/uL (0.0-0.5); EOS % 1.7 % (0.0-3.0); HEMATOCRIT 56.9 % (42.0-52.0); LYMPH # 2.8 10^3/uL (1.5-5.0); LYMPH % 26.1 % (24.0-44.0); MEAN CORPUSCULAR HEMOGLOBIN 33.2 pg (27.0-33.0); MEAN CORPUSCULAR HGB CONC 33.6 g/dl (32.0-36.5); MEAN CORPUSCULAR VOLUME 98.8 fl (80.0-96.0); NEUTROPHILS # 6.6 10^3/uL (1.5-8.5); PLATELET COUNT, AUTOMATED 263 10^3/uL (150-450); RED BLOOD COUNT 5.76 10^6/uL (4.30-6.10); WHITE BLOOD COUNT 10.7 10^3/uL (4.0-10.0)
[2019-12-20 16:11] LABS: HEMOGLOBIN 19.1 g/dl (13.5-17.5)
[2019-12-20 16:17] LABS: ALBUMIN 3.9 GM/DL (3.2-5.2); ALT/SGPT 43 U/L (12-78); BILIRUBIN,TOTAL 0.8 MG/DL (0.2-1.0); BLOOD UREA NITROGEN 11 MG/DL (7-18); CALCIUM LEVEL 9.4 MG/DL (8.8-10.2); CARBON DIOXIDE LEVEL 32 MEQ/L (21-32); CHLORIDE LEVEL 104 MEQ/L (98-107); CHOLESTEROL LEVEL 188 MG/DL (<200); CHOLESTEROL RISK RATIO 3.547 (<5); CREATININE FOR GFR 0.88 MG/DL (0.70-1.30); GLOMERULAR FILTRATION RATE > 60.0 (>49); GLUCOSE, FASTING 78 MG/DL (70-100); HDL CHOLESTEROL 53 MG/DL (>40); LDL CHOLESTEROL 104 MG/DL (<100); NON-HDL-C 135 MG/DL; POTASSIUM SERUM 4.5 MEQ/L (3.5-5.1); SODIUM LEVEL 140 MEQ/L (136-145); TOTAL PROTEIN 7.3 GM/DL (6.4-8.2); TRIGLYCERIDES LEVEL 157 MG/DL (<150)
[2019-12-20 16:19] LABS: TOTAL 25(OH) VITAMIN D 13.5 NG/ML (30.0-100.0)
== END ==
LOC: M SFHCPLAZ 12:06
PROVIDERS: ATTEND Physician Assistant
DX: J96.11 Chronic respiratory failure with hypoxia (principal); E78.5 Hyperlipidemia, unspecified; E55.9 Vitamin D deficiency, unspecified; Z12.5 Encounter for screening for malignant neoplasm of prostate
CPT/HCPCS: 36415; 80053; 80061; 82306; 85025; G0103

== ENCOUNTER → 2020-04-20 | Outpatient (CLI) | payer MEDICARE, MEDICAID ==
--- NOTE | 2020-05-10 11:36 | REP ---
LEFT WRIST CLINICAL: Chronic left wrist pain. TECHNIQUE: AP, lateral, and bilateral oblique views of the left wrist. FINDINGS: Carpal bones and adjacent osseous structures are intact and age appropriate. No evidence for acute or healed injury. No significant arthritic changes. Surrounding soft tissues are unremarkable. IMPRESSION: Normal age appropriate left wrist radiographs. MTDD
== END ==
LOC: M WUC 09:39
PROVIDERS: ATTEND Physician Assistant
DX: R22.32 Localized swelling, mass and lump, left upper limb (principal)

== ENCOUNTER → 2020-07-16 | Outpatient (CLI) | payer SELFPAY | LOC: M LABSMTC 16:23 | PROVIDERS: ATTEND Pediatrics | DX: Z20.828 Contact with and (suspected) exposure to other viral communicable diseases (principal) ==

== ENCOUNTER → 2020-07-17 | Outpatient (REF) | payer MEDICARE, MEDICAID ==
[2020-07-17 10:24] LABS: HEMATOCRIT 55.8 % (42.0-52.0); HEMOGLOBIN 18.3 g/dl (13.5-17.5); MEAN CORPUSCULAR HEMOGLOBIN 32.8 pg (27.0-33.0); MEAN CORPUSCULAR HGB CONC 32.8 g/dl (32.0-36.5); PLATELET COUNT, AUTOMATED 232 10^3/uL (150-450); RED BLOOD COUNT 5.58 10^6/uL (4.30-6.10)
[2020-07-17 11:06] LABS: ALBUMIN 3.6 GM/DL (3.2-5.2); ALT/SGPT 51 U/L (12-78); BILIRUBIN,TOTAL 0.3 MG/DL (0.2-1.0); BLOOD UREA NITROGEN 8 MG/DL (7-18); CARBON DIOXIDE LEVEL 30 MEQ/L (21-32); CHLORIDE LEVEL 105 MEQ/L (98-107); CHOLESTEROL LEVEL 243 MG/DL (<200); CREATININE FOR GFR 0.76 MG/DL (0.70-1.30); GLOMERULAR FILTRATION RATE > 60.0 (>49); GLUCOSE, FASTING 72 MG/DL (70-100); HDL CHOLESTEROL 47 MG/DL (>40); LDL CHOLESTEROL 151 MG/DL (<100); NON-HDL-C 196 MG/DL; POTASSIUM SERUM 4.5 MEQ/L (3.5-5.1); SODIUM LEVEL 139 MEQ/L (136-145); TOTAL PROTEIN 6.9 GM/DL (6.4-8.2); TRIGLYCERIDES LEVEL 227 MG/DL (<150)
[2020-07-17 11:56] LABS: TOTAL 25(OH) VITAMIN D 11.8 NG/ML (30.0-100.0)
== END ==
LOC: M PLALAB 08:28
PROVIDERS: ATTEND Physician Assistant
DX: E78.5 Hyperlipidemia, unspecified (principal); E55.9 Vitamin D deficiency, unspecified; F17.210 Nicotine dependence, cigarettes, uncomplicated; F10.20 Alcohol dependence, uncomplicated

== ENCOUNTER → 2020-09-03 | Outpatient (CLI) | payer MEDICARE, MEDICAID ==
[~2020-09-03] MED LIST changes: +LISI10TA22 PO; -LISI10TA4 PO
--- NOTE | 2020-09-03 09:59 | REP ---
INDICATION: LT WRIST CARPAL JOINT SPRAIN?. Rule out carpal fracture. COMPARISON: Comparison radiographs are from April 20, 2020.. TECHNIQUE: Helical scanning is acquired and 2 mm axial images are generated. Coronal and sagittal MPR images are provided. FINDINGS: There is no evidence of carpal or metacarpal fracture. The distal radius and ulna appear intact. There is widening of the navicular lunate interval consistent with degeneration or, less likely, traumatic disruption of the navicular lunate ligament. The interval is 5 mm. No other malalignment is appreciated. There are 2 small periarticular ossicles along the volar aspect of the wrist at the naviculo-multangular articulation. There is minimal joint space narrowing sclerosis and spur formation at the navicular 0 multangular articulation. In addition, there are 3 tiny accessory ossicles along the dorsal aspect of the lunate and triquetrum. These could be old triquetral chip fracture fragments or degenerative accessory ossicles. No acute chip fracture is appreciated. 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 There are accessory ossicles at the dorsal and ventral aspect of the carpus as described above. Minimal osteoarthritic changes are seen in the naviculo- multangular articulations. <Electronically signed by Virgil Medina > 09/03/20 [id number]
== END ==
LOC: M RAD 07:46
PROVIDERS: ATTEND Physician Assistant Surgical
DX: S63.512A Sprain of carpal joint of left wrist, initial encounter (principal); X58.XXXA Exposure to other specified factors, initial encounter; Y92.9 Unspecified place or not applicable

== ENCOUNTER → 2020-11-27 | Outpatient (CLI) | payer MEDICARE, MEDICAID ==
--- NOTE | 2020-11-27 08:53 | REP ---
INDICATION: LUNG SCREENING COMPARISON: 10/28/2019, 11/23/2017 TECHNIQUE: Axial noncontrast images from the thoracic inlet to the upper abdomen using low-dose lung screening technique (LDCT). FINDINGS: Areas of linear scarring involving the lingula and left lower lobe appear progressive as compared with prior examination. The lung castanon are otherwise clear and without focal consolidation, suspicious nodule or mass. No effusion. No pneumothorax. Tracheobronchial tree is patent. IMPRESSION: Lung-RADS category 1. No suspicious nodule or mass. Increased linear scarring in the left hemithorax. Management recommendations include annual low-dose CT surveillance. <Electronically signed by Beau Morley > 11/27/20 [id number]
== END ==
LOC: M RAD 07:43
PROVIDERS: ATTEND Internal Medicine Pulmonary Disease
DX: Z12.2 Encounter for screening for malignant neoplasm of respiratory organs (principal); F17.218 Nicotine dependence, cigarettes, with other nicotine-induced disorders

== ENCOUNTER 2021-04-16 09:43 | Emergency (ER) | payer MEDICARE, MEDICAID ==
[~2021-04-16] VITALS: Ht 175.3 cm; Wt 80.7 kg
[2021-04-16] MEDS ORDERED: methylPREDNISolone 125MG 2ML VIAL IV ONE (11:35)
[2021-04-16] MEDS: COMBIVENT RESPIMAT 100-20MCG INHALER 4GM INH SCH ×3 (11:54→13:27)
--- NOTE | 2021-04-16 11:59 | REP ---
INDICATION: DYSPNEA/COUGH. COMPARISON: 09/21/2018. TECHNIQUE: Single portable AP view of the chest was performed. FINDINGS: Stable interstitial fibrotic changes are noted, with no definite superimposed acute infiltrate. The heart is not significantly enlarged. The mediastinal silhouette is unchanged. There is tenting of the left diaphragm unchanged. IMPRESSION: No acute pulmonary disease.Stable chronic findings. <Electronically signed by Lebron Mar > 04/16/21 [id number]
[2021-04-16 12:45] LABS: BASO # 0.1 10^3/uL (0.0-0.2); BASO % 0.5 % (0.0-1.0); EOS # 0.1 10^3/uL (0.0-0.5); EOS % 0.8 % (0.0-3.0); HEMATOCRIT 52.1 % (42.0-52.0); HEMOGLOBIN 17.3 g/dl (13.5-17.5); LYMPH # 1.5 10^3/uL (1.5-5.0); LYMPH % 11.1 % (24.0-44.0); MEAN CORPUSCULAR HGB CONC 33.2 g/dl (32.0-36.5); MEAN CORPUSCULAR VOLUME 96.3 fl (80.0-96.0); MONO # 1.5 10^3/uL (0.0-0.8); MONO % 10.5 % (2.0-8.0); NEUTROPHILS # 10.5 10^3/uL (1.5-8.5); NEUTROPHILS % 76.3 % (36.0-66.0); PLATELET COUNT, AUTOMATED 305 10^3/uL (150-450); RED BLOOD COUNT 5.41 10^6/uL (4.30-6.10)
[2021-04-16 12:50] LABS: WHITE BLOOD COUNT 13.8 10^3/uL (4.0-10.0)
[2021-04-16 13:12] LABS: BILIRUBIN,DIRECT 0.2 MG/DL (0.0-0.2); BILIRUBIN,TOTAL 0.9 MG/DL (0.2-1.0); TOTAL PROTEIN 7.2 GM/DL (6.4-8.2)
[2021-04-16 13:42] LABS: RSV AMPLIFICATION NEGATIVE (NEGATIVE)
[2021-04-16] MEDS ORDERED: cefTRIAXone SOD 1 GM in D5W MINI-BAG PLUS 50 ML IV ONE (14:05)
[2021-04-16 14:45] VITALS: BP 156/86
[2021-04-16] MEDS ORDERED: PRED20TA PO (15:08)
[2021-04-16] MEDS ORDERED: AUGM875T28 PO (15:08)
[2021-04-16] MEDS ORDERED: ATOR40TA75 PO (15:37)
--- NOTE | 2021-04-16 17:57 | ECGEPIP ---
[facility] - ED Test Date: 2021-04-16 Pat Name: DAMIR VASQUEZ Department: Room: - Gender: Male Calibration Checker: LR : 1960 Requested By: TESHA KATZ PA-C. Order Number: [id number] Reading MD: Betty Cason Measurements Intervals [place] Rate: 85 P: 83 MO: 128 QRS: 81 QRSD: 94 T: 61 QT: 376 QTc: 447 Interpretive Statements Normal sinus rhythm NSTTW abnormalities similar 09/21/18 Electronically Signed on 04-16-2021 17:57:17 EDT by Betty Cason
== END 2021-04-16 15:57 | disposition home or self-care (01) ==
LOC: M ED 09:43
DX: J44.1 Chronic obstructive pulmonary disease with (acute) exacerbation (principal); F17.200 Nicotine dependence, unspecified, uncomplicated; Z88.6 Allergy status to analgesic agent
CPT/HCPCS: 71045; 80047; 80076; 83880; 84484; 85025; 87040; 87631; 93005; 93041; 94640; 94664; 94760; 96374; 96375; 99285; J0696; J2930

== ENCOUNTER → 2021-12-05 | Outpatient (CLI) | payer MEDICARE, MEDICAID ==
[~2021-12-05] MED LIST changes: +ATOR40TA75 PO; +AUGM875T28 PO; +PRED20TA PO
[2021-12-05 15:16] LABS: BASO # 0.1 10^3/uL (0.0-0.2); BASO % 0.7 % (0.0-1.0); EOS # 0.1 10^3/uL (0.0-0.5); EOS % 0.7 % (0.0-3.0); HEMATOCRIT 52.7 % (42.0-52.0); HEMOGLOBIN 18.1 g/dl (13.5-17.5); LYMPH # 2.1 10^3/uL (1.5-5.0); MEAN CORPUSCULAR HEMOGLOBIN 33.6 pg (27.0-33.0); MEAN CORPUSCULAR HGB CONC 34.3 g/dl (32.0-36.5); MEAN CORPUSCULAR VOLUME 97.8 fl (80.0-96.0); MONO # 0.8 10^3/uL (0.0-0.8); MONO % 6.9 % (2.0-8.0); NEUTROPHILS # 7.9 10^3/uL (1.5-8.5); NEUTROPHILS % 72.3 % (36.0-66.0); PLATELET COUNT, AUTOMATED 276 10^3/uL (150-450); RED BLOOD COUNT 5.39 10^6/uL (4.30-6.10); WHITE BLOOD COUNT 10.9 10^3/uL (4.0-10.0)
[2021-12-05 15:22] LABS: ALBUMIN 4.3 GM/DL (3.2-5.2); ALT/SGPT 62 U/L (12-78); BLOOD UREA NITROGEN 10 MG/DL (7-18); CARBON DIOXIDE LEVEL 30 MEQ/L (21-32); CHLORIDE LEVEL 105 MEQ/L (98-107); CHOLESTEROL LEVEL 200 MG/DL (<200); CHOLESTEROL RISK RATIO 3.448 (<5); CREATININE FOR GFR 0.61 MG/DL (0.70-1.30); GLOMERULAR FILTRATION RATE > 60.0 (>49); GLUCOSE, FASTING 66 MG/DL (70-100); HDL CHOLESTEROL 58 MG/DL (>40); LDL CHOLESTEROL 118 MG/DL (<100); NON-HDL-C 142 MG/DL; POTASSIUM SERUM 4.3 MEQ/L (3.5-5.1); SODIUM LEVEL 141 MEQ/L (136-145); TOTAL PROTEIN 7.5 GM/DL (6.4-8.2); TRIGLYCERIDES LEVEL 121 MG/DL (<150)
[2021-12-05 15:30] LABS: TOTAL 25(OH) VITAMIN D 11.4 NG/ML (30.0-100.0)
== END ==
LOC: M PLALAB 12:54
PROVIDERS: ATTEND Physician Assistant Medical
DX: E78.5 Hyperlipidemia, unspecified (principal); E55.9 Vitamin D deficiency, unspecified; I10 Essential (primary) hypertension; Z79.899 Other long term (current) drug therapy

== ENCOUNTER → 2021-12-10 | Outpatient (CLI) | payer MEDICARE, MEDICAID | LOC: M RAD 10:44 | PROVIDERS: ATTEND Internal Medicine Pulmonary Disease | DX: F17.218 Nicotine dependence, cigarettes, with other nicotine-induced disorders (principal) ==

== ENCOUNTER → 2021-12-17 | Outpatient (CLI) | payer MEDICARE, MEDICAID | LOC: M RAD 12:19 | PROVIDERS: ATTEND Internal Medicine Pulmonary Disease | DX: J43.1 Panlobular emphysema (principal) ==

== ENCOUNTER 2022-06-11 08:49 | Emergency (ER) | payer MEDICARE, MEDICAID ==
[~2022-06-11] VITALS: Ht 175.3 cm; Wt 81.8 kg
[~2022-06-11 08:49] MED LIST changes: +ALBU2.5V10 INH; -ALBU83IN INH
[2022-06-11 09:31] LABS: BASO # 0.1 10^3/uL (0.0-0.2); EOS # 0.1 10^3/uL (0.0-0.5); EOS % 1.6 % (0.0-3.0); HEMATOCRIT 49.2 % (42.0-52.0); HEMOGLOBIN 16.6 g/dl (13.5-17.5); LYMPH # 2.8 10^3/uL (1.5-5.0); LYMPH % 34.7 % (24.0-44.0); MEAN CORPUSCULAR HEMOGLOBIN 32.1 pg (27.0-33.0); MEAN CORPUSCULAR HGB CONC 33.7 g/dl (32.0-36.5); MEAN CORPUSCULAR VOLUME 95.2 fl (80.0-96.0); MONO # 0.6 10^3/uL (0.0-0.8); MONO % 7.6 % (2.0-8.0); NEUTROPHILS # 4.4 10^3/uL (1.5-8.5); NEUTROPHILS % 54.6 % (36.0-66.0); PLATELET COUNT, AUTOMATED 248 10^3/uL (150-450); RED BLOOD COUNT 5.17 10^6/uL (4.30-6.10)
[2022-06-11 10:05] LABS: BLOOD UREA NITROGEN 12 MG/DL (7-18); CALCIUM LEVEL 8.9 MG/DL (8.8-10.2); CARBON DIOXIDE LEVEL 30 MEQ/L (21-32); CHLORIDE LEVEL 107 MEQ/L (98-107); CREATININE FOR GFR 0.61 MG/DL (0.70-1.30); GLOMERULAR FILTRATION RATE > 60.0 (>49); GLUCOSE, FASTING 75 MG/DL (70-100); SODIUM LEVEL 141 MEQ/L (136-145)
[2022-06-11] MEDS: IPRATROPIUM 0.5MG/ALBUTEROL 2.5MG INH SOL UD 3ML (DUONEB) NEB SCH ×3 (10:24→10:56)
[2022-06-11 11:17] LABS: ETHYL ALCOHOL (ETHANOL) 0.235 % (0.000-0.010)
[2022-06-11 11:58] VITALS: O2SAT 90
[2022-06-11] MEDS ORDERED: DOXY-443 PO (12:13)
[2022-06-11] MEDS ORDERED: PRED10TA2 PO (12:13)
[2022-06-11 12:28] VITALS: BP 115/64
== END 2022-06-11 12:29 | disposition home or self-care (01) ==
LOC: EDBD 08:49 → M ED 11:08
DX: J44.1 Chronic obstructive pulmonary disease with (acute) exacerbation (principal); F10.120 Alcohol abuse with intoxication, uncomplicated; E78.5 Hyperlipidemia, unspecified; I10 Essential (primary) hypertension; K21.9 Gastro-esophageal reflux disease without esophagitis; F17.200 Nicotine dependence, unspecified, uncomplicated; F10.10 Alcohol abuse, uncomplicated; Z88.5 Allergy status to narcotic agent; Z79.51 Long term (current) use of inhaled steroids; Z79.811 Long term (current) use of aromatase inhibitors; Z79.899 Other long term (current) drug therapy

== ENCOUNTER → 2022-09-16 | Outpatient (CLI) | payer MEDICARE, MEDICAID ==
[~2022-09-16] MED LIST changes: +DOXY-443 PO
[2022-09-16 08:36] LABS: BASO # 0.1 10^3/uL (0.0-0.2); BASO % 0.9 % (0.0-1.0); EOS # 0.2 10^3/uL (0.0-0.5); EOS % 2.7 % (0.0-3.0); HEMATOCRIT 47.8 % (42.0-52.0); HEMOGLOBIN 15.4 g/dl (13.5-17.5); LYMPH # 2.6 10^3/uL (1.5-5.0); LYMPH % 28.4 % (24.0-44.0); MEAN CORPUSCULAR HEMOGLOBIN 32.2 pg (27.0-33.0); MEAN CORPUSCULAR HGB CONC 32.2 g/dl (32.0-36.5); MEAN CORPUSCULAR VOLUME 99.8 fl (80.0-96.0); MONO # 0.8 10^3/uL (0.0-0.8); MONO % 9.2 % (2.0-8.0); NEUTROPHILS # 5.3 10^3/uL (1.5-8.5); NEUTROPHILS % 58.5 % (36.0-66.0); PLATELET COUNT, AUTOMATED 252 10^3/uL (150-450); RED BLOOD COUNT 4.79 10^6/uL (4.30-6.10)
[2022-09-16 09:00] LABS: ALBUMIN 3.7 G/DL (3.2-5.2); ALKALINE PHOSPHATASE 75 U/L (46-116); ALT/SGPT 22 U/L (7.0-40); AST/SGOT 30 U/L (<34); BILIRUBIN,TOTAL 0.4 MG/DL (0.3-1.2); BLOOD UREA NITROGEN 11 MG/DL (9-23); CALCIUM LEVEL 8.8 MG/DL (8.3-10.6); CARBON DIOXIDE LEVEL 32 MMOL/L (20-31); CHLORIDE LEVEL 105 MMOL/L (98-107); CHOLESTEROL LEVEL 185 MG/DL (<200); CHOLESTEROL RISK RATIO 2.79 (<5); CPK CREATINE PHOSPHOKINASE 50 U/L (46-171); CREATININE FOR GFR 0.73 MG/DL (0.70-1.30); GLOMERULAR FILTRATION RATE > 60.0 (>49); GLUCOSE, FASTING 81 MG/DL (74-106); HDL CHOLESTEROL 66.2 MG/DL (>40); LDL CHOLESTEROL 93.4 MG/DL (<100); NON-HDL-C 119 MG/DL; POTASSIUM SERUM 3.8 MMOL/L (3.5-5.1); PTH INTACT 30.4 PG/ML (18.5-88.0); SODIUM LEVEL 141 MMOL/L (136-145); TOTAL PROTEIN 6.5 G/DL (5.7-8.2); TRIGLYCERIDES LEVEL 127 MG/DL (<150)
[2022-09-16 09:01] LABS: VITAMIN B12 LEVEL 1104 PG/ML (211-911)
== END ==
LOC: M LAB 07:37
PROVIDERS: ATTEND Physician Assistant Medical
DX: E55.9 Vitamin D deficiency, unspecified (principal); D75.89 Other specified diseases of blood and blood-forming organs; E78.5 Hyperlipidemia, unspecified; Z79.899 Other long term (current) drug therapy

== ENCOUNTER → 2022-10-16 | Outpatient (CLI) | payer MEDICARE, MEDICAID ==
[2022-10-16 14:05] LABS: BASO # 0.1 10^3/uL (0.0-0.2); EOS # 0.1 10^3/uL (0.0-0.5); EOS % 1.1 % (0.0-3.0); HEMOGLOBIN 16.4 g/dl (13.5-17.5); LYMPH # 2.1 10^3/uL (1.5-5.0); LYMPH % 20.6 % (24.0-44.0); MEAN CORPUSCULAR HEMOGLOBIN 32.4 pg (27.0-33.0); MEAN CORPUSCULAR HGB CONC 32.2 g/dl (32.0-36.5); MEAN CORPUSCULAR VOLUME 100.8 fl (80.0-96.0); MONO # 0.8 10^3/uL (0.0-0.8); MONO % 8.1 % (2.0-8.0); NEUTROPHILS % 68.6 % (36.0-66.0); PLATELET COUNT, AUTOMATED 267 10^3/uL (150-450); RED BLOOD COUNT 5.06 10^6/uL (4.30-6.10); WHITE BLOOD COUNT 10.2 10^3/uL (4.0-10.0)
[2022-10-16 14:24] LABS: ERYTHROCYTE SEDIMENTATION RATE 18 mm/hr (0-20)
[2022-10-16 14:26] LABS: LIPASE 32 U/L (12-53)
[2022-10-16 14:28] LABS: ALBUMIN 3.7 G/DL (3.2-5.2); ALKALINE PHOSPHATASE 67 U/L (46-116); ALT/SGPT 50 U/L (7.0-40); AST/SGOT 51 U/L (<34); BILIRUBIN,TOTAL 0.3 MG/DL (0.3-1.2); BLOOD UREA NITROGEN 10 MG/DL (9-23); CALCIUM LEVEL 9.1 MG/DL (8.3-10.6); CARBON DIOXIDE LEVEL 33 MMOL/L (20-31); CHLORIDE LEVEL 103 MMOL/L (98-107); CREATININE FOR GFR 0.65 MG/DL (0.70-1.30); GLOMERULAR FILTRATION RATE > 60.0 (>49); GLUCOSE, FASTING 64 MG/DL (74-106); POTASSIUM SERUM 4.3 MMOL/L (3.5-5.1); SODIUM LEVEL 143 MMOL/L (136-145); TOTAL PROTEIN 6.7 G/DL (5.7-8.2)
[2022-10-16 14:30] LABS: C REACTIVE PROTEIN QUANTITATIV < 0.40 MG/DL (<1.0)
== END ==
LOC: M PLALAB 09:27
PROVIDERS: ATTEND Physician Assistant Medical
DX: J96.11 Chronic respiratory failure with hypoxia (principal); F10.20 Alcohol dependence, uncomplicated

== ENCOUNTER → 2022-10-29 | Outpatient (CLI) | payer MEDICARE, MEDICAID | LOC: M PLAIMG 12:20 | PROVIDERS: ATTEND Physician Assistant Medical | DX: R10.11 Right upper quadrant pain (principal) ==

== ENCOUNTER → 2022-11-14 | Outpatient (CLI) | payer MEDICARE, MEDICAID | LOC: M SLEEP 20:00 | PROVIDERS: ATTEND Internal Medicine Pulmonary Disease | DX: G47.33 Obstructive sleep apnea (adult) (pediatric) (principal) ==

== ENCOUNTER → 2022-11-28 | Outpatient (CLI) | payer MEDICARE, MEDICAID | LOC: M SLEEP 20:00 | PROVIDERS: ATTEND Internal Medicine Pulmonary Disease | DX: G47.33 Obstructive sleep apnea (adult) (pediatric) (principal) ==

== ENCOUNTER → 2022-12-19 | Outpatient (REF) | payer MEDICARE, MEDICAID | LOC: M SFHCPLAZ 09:22 | PROVIDERS: ATTEND Physician Assistant Medical | DX: J96.11 Chronic respiratory failure with hypoxia (principal) ==

== ENCOUNTER → 2023-03-19 | Outpatient (CLI) | payer MEDICARE, MEDICAID ==
[2023-03-19 10:43] LABS: BASO # 0.1 10^3/uL (0.0-0.2); BASO % 1.1 % (0.0-1.0); EOS # 0.2 10^3/uL (0.0-0.5); EOS % 2.2 % (0.0-3.0); LYMPH # 2.3 10^3/uL (1.5-5.0); LYMPH % 28.2 % (24.0-44.0); MEAN CORPUSCULAR HEMOGLOBIN 32.8 pg (27.0-33.0); MEAN CORPUSCULAR HGB CONC 33.3 g/dl (32.0-36.5); MEAN CORPUSCULAR VOLUME 98.4 fl (80.0-96.0); MONO # 0.8 10^3/uL (0.0-0.8); MONO % 9.7 % (2.0-8.0); NEUTROPHILS # 4.8 10^3/uL (1.5-8.5); NEUTROPHILS % 58.3 % (36.0-66.0); PLATELET COUNT, AUTOMATED 255 10^3/uL (150-450); RED BLOOD COUNT 4.88 10^6/uL (4.30-6.10); WHITE BLOOD COUNT 8.3 10^3/uL (4.0-10.0)
[2023-03-19 11:04] LABS: ALBUMIN 3.6 G/DL (3.2-5.2); ALKALINE PHOSPHATASE 75 U/L (46-116); ALT/SGPT 30 U/L (7.0-40); AST/SGOT 33 U/L (<34); BILIRUBIN,TOTAL 0.5 MG/DL (0.3-1.2); BLOOD UREA NITROGEN 8 MG/DL (9-23); CALCIUM LEVEL 8.6 MG/DL (8.3-10.6); CARBON DIOXIDE LEVEL 30 MMOL/L (20-31); CHLORIDE LEVEL 103 MMOL/L (98-107); CREATININE FOR GFR 0.64 MG/DL (0.70-1.30); GLOMERULAR FILTRATION RATE > 60.0 (>49); GLUCOSE, FASTING 76 MG/DL (74-106); POTASSIUM SERUM 3.7 MMOL/L (3.5-5.1); SODIUM LEVEL 142 MMOL/L (136-145); TOTAL PROTEIN 6.7 G/DL (5.7-8.2)
[2023-03-19 11:09] LABS: VITAMIN B12 LEVEL 1031 PG/ML (211-911)
== END ==
LOC: M PLALAB 08:53
PROVIDERS: ATTEND Physician Assistant Medical
DX: D75.89 Other specified diseases of blood and blood-forming organs (principal); F33.1 Major depressive disorder, recurrent, moderate

== ENCOUNTER 2023-04-04 09:26 | Inpatient (IN) | payer MEDICARE, MEDICAID ==
[~2023-04-04] VITALS: Ht 175.3 cm; Wt 81.3 kg
[2023-04-04 10:40] LABS: BASO # 0.1 10^3/uL (0.0-0.2); BASO % 0.6 % (0.0-1.0); EOS # 0.1 10^3/uL (0.0-0.5); EOS % 1.2 % (0.0-3.0); HEMATOCRIT 48.3 % (42.0-52.0); HEMOGLOBIN 16.2 g/dl (13.5-17.5); LYMPH # 1.9 10^3/uL (1.5-5.0); MEAN CORPUSCULAR HEMOGLOBIN 32.2 pg (27.0-33.0); MEAN CORPUSCULAR HGB CONC 33.5 g/dl (32.0-36.5); MONO # 0.9 10^3/uL (0.0-0.8); MONO % 8.6 % (2.0-8.0); NEUTROPHILS # 7.4 10^3/uL (1.5-8.5); NEUTROPHILS % 71.3 % (36.0-66.0); PLATELET COUNT, AUTOMATED 242 10^3/uL (150-450); RED BLOOD COUNT 5.03 10^6/uL (4.30-6.10); WHITE BLOOD COUNT 10.3 10^3/uL (4.0-10.0)
[2023-04-04 11:11] LABS: ETHYL ALCOHOL (ETHANOL) 0.116 % (0.000-0.010)
[2023-04-04 11:13] LABS: ALBUMIN 3.5 G/DL (3.2-5.2); ALKALINE PHOSPHATASE 74 U/L (46-116); ALT/SGPT 46 U/L (7.0-40); AST/SGOT 52 U/L (<34); BILIRUBIN,DIRECT 0.2 MG/DL (<0.4); BILIRUBIN,TOTAL 0.8 MG/DL (0.3-1.2); BLOOD UREA NITROGEN 9 MG/DL (9-23); CALCIUM LEVEL 8.6 MG/DL (8.3-10.6); CARBON DIOXIDE LEVEL 27 MMOL/L (20-31); CHLORIDE LEVEL 103 MMOL/L (98-107); CK-MB VALUE MASS < 1.0 NG/ML (<3.6); CREATININE FOR GFR 0.57 MG/DL (0.70-1.30); GLOMERULAR FILTRATION RATE > 60.0 (>49); GLUCOSE, FASTING 76 MG/DL (74-106); POTASSIUM SERUM 3.8 MMOL/L (3.5-5.1); SODIUM LEVEL 140 MMOL/L (136-145); TOTAL PROTEIN 6.8 G/DL (5.7-8.2)
[2023-04-04 11:16] LABS: CPK CREATINE PHOSPHOKINASE 127 U/L (46-171); MB/CK RELATIVE INDEX 0.78 (< OR =4)
[2023-04-04 11:30] LABS: INR 1.02; PROTHROMBIN TIME 13.1 SECONDS (12.5-14.5)
[2023-04-04 11:31] LABS: PARTIAL THROMBOPLASTIN TIME 25.9 SECONDS (24.8-34.2)
[2023-04-04 11:50] LABS: MB/CK RELATIVE INDEX 0.83 (< OR =4)
[2023-04-04] MEDS ORDERED: NS 1,000 ML IV ONE (11:55)
[2023-04-04] MEDS ORDERED: ISOVUE-370 76% 100ML VIAL As Ordered ONE (11:57)
[2023-04-04 12:20] LABS: APPEARANCE, URINE CLEAR (CLEAR); BACTERIA, URINE AUTO 1+ (NEGATIVE); BILIRUBIN, URINE AUTO NEGATIVE (NEGATIVE); BLOOD, URINE BLOOD 1+ (NEGATIVE); COLOR, URINE YELLOW (YELLOW); GLUCOSE, URINE (UA) AUTO NEGATIVE (NEGATIVE); KETONE, URINE AUTO 1+ mg/dL (NEGATIVE); LEUKOCYTE ESTERASE, URINE AUTO TRACE (NEGATIVE); MUCUS, URINE SMALL (NEGATIVE); NITRITE, URINE AUTO NEGATIVE (NEGATIVE); PROTEIN, URINE AUTO 1+ mg/dL (NEGATIVE); RBC, URINE AUTO 2 /HPF (0-3); SPECIFIC GRAVITY URINE AUTO 1.018 (1.002-1.035); SQUAMOUS EPITHELIAL CELL UR AU 0 /HPF (0-6); UROBILINOGEN, URINE AUTO 0.2 mg/dL (0.0-2.0); WBC, URINE AUTO 4 /HPF (0-3)
[2023-04-04] MEDS ORDERED: ATIV1TAB10 PO (12:36)
[2023-04-04] MEDS ORDERED: AMLO2.5T3 PO (12:36)
[2023-04-04] MEDS ORDERED: LEXA1TAB PO (12:37)
[2023-04-04 12:45] LABS: AMPHETAMINES LEVEL URINE NEGATIVE (NEGATIVE); BARBITURATES URINE NEGATIVE (NEGATIVE); BENZODIAZEPINES URINE NEGATIVE (NEGATIVE); COCAINE METABOLITE URINE NEGATIVE (NEGATIVE); METHADONE URINE NEGATIVE (NEGATIVE); OPIATES URINE NEGATIVE (NEGATIVE); PHENCYCLIDINE URINE NEGATIVE (NEGATIVE)
[2023-04-04 12:46] LABS: CANNABINOIDS URINE POSITIVE (NEGATIVE)
[2023-04-04] MEDS ORDERED: cefTRIAXone SOD 2 GM in D5W MINI-BAG PLUS 50 ML IV ONE (13:20)
[2023-04-04] MEDS ORDERED: ONDA4TAB6 PO (14:09)
[2023-04-04] MEDS ORDERED: ALBUTEROL SULFATE 2.5MG/0.5ML INH NEB SOLN INH ONE (14:35)
[2023-04-04] MEDS ORDERED: methylPREDNISolone 125MG 2ML VIAL IV ONE (14:35)
[2023-04-04] MEDS ORDERED: IPRATROPIUM 0.5MG/ALBUTEROL 2.5MG INH SOL UD 3ML (DUONEB) NEB ONE (14:35)
[2023-04-04] MEDS ORDERED: OXAZEPAM 15MG CAP PO ONE (14:55)
[2023-04-04] MEDS ORDERED: MED REC IN PROGRESS XX SCH (15:20)
[2023-04-04] MEDS ORDERED: HOME MED LIST COMPLETE! XX SCH (15:55)
[2023-04-04] MEDS ORDERED: ACETAMINOPHEN TAB 650MG DOSE (2X325MG) PO PRN (16:50)
[2023-04-04] MEDS ORDERED: NS 1,000 ML IV SCH (17:30)
[2023-04-04] MEDS ORDERED: hydrALAZINE 20MG/ML 1ML VIAL IV PRN (17:40)
[2023-04-04] MEDS: OXAZEPAM 10MG CAP PO SCH ×2 (18:36→23:17)
[2023-04-04] MEDS: MULTIVITAMINS/MINERALS THERAP 1 TAB PO SCH (18:36)
[2023-04-04] MEDS: FOLIC ACID 1MG TAB PO SCH (18:36)
[2023-04-04] MEDS: LORazepam 2 MG TAB PO PRN ×2 (19:04→21:54)
[2023-04-04] MEDS: IPRATROPIUM 0.5MG/ALBUTEROL 2.5MG INH SOL UD 3ML (DUONEB) NEB SCH (20:14)
[2023-04-04 21:14] VITALS: BP 119/70; TEMP 97.9; O2SAT 90
[2023-04-04] MEDS: DOXYCYCLINE HYCLATE 100MG TABLET PO SCH (21:33)
[2023-04-04] MEDS: guaiFENesin ER 600 MG TAB PO SCH (21:34)
[2023-04-04] MEDS: THIAMINE 100 MG TAB PO SCH (21:36)
[2023-04-04] MEDS: methylPREDNISolone 125MG 2ML VIAL IV SCH (22:55)
[2023-04-04 23:04] VITALS: BP 144/77; TEMP 98.1; O2SAT 77; O2SAT 97
[2023-04-04] MEDS ORDERED: LORazepam 2 MG/ML 1ML VIAL IV STA (23:57)
[2023-04-05] VITALS (22 sets, daily range): BP systolic 109–142; BP diastolic 57–85; TEMP 97.4–98.4; O2SAT 90–97
[2023-04-05] MEDS: methylPREDNISolone 125MG 2ML VIAL IV SCH ×2 (06:07→15:11)
[2023-04-05] MEDS: OXAZEPAM 10MG CAP PO SCH ×2 (06:07→11:17)
[2023-04-05 06:17] LABS: HEMATOCRIT 45.1 % (42.0-52.0); HEMOGLOBIN 15.3 g/dl (13.5-17.5); MEAN CORPUSCULAR HEMOGLOBIN 32.5 pg (27.0-33.0); MEAN CORPUSCULAR HGB CONC 33.9 g/dl (32.0-36.5); MEAN CORPUSCULAR VOLUME 95.8 fl (80.0-96.0); PLATELET COUNT, AUTOMATED 192 10^3/uL (150-450); RED BLOOD COUNT 4.71 10^6/uL (4.30-6.10); WHITE BLOOD COUNT 7.5 10^3/uL (4.0-10.0)
[2023-04-05 06:34] LABS: ALBUMIN 3.2 G/DL (3.2-5.2); ALKALINE PHOSPHATASE 70 U/L (46-116); ALT/SGPT 38 U/L (7.0-40); AST/SGOT 32 U/L (<34); BILIRUBIN,TOTAL 0.9 MG/DL (0.3-1.2); BLOOD UREA NITROGEN 8 MG/DL (9-23); CALCIUM LEVEL 8.1 MG/DL (8.3-10.6); CARBON DIOXIDE LEVEL 26 MMOL/L (20-31); CHLORIDE LEVEL 104 MMOL/L (98-107); CREATININE FOR GFR 0.54 MG/DL (0.70-1.30); GLOMERULAR FILTRATION RATE > 60.0 (>49); GLUCOSE, FASTING 213 MG/DL (74-106); POTASSIUM SERUM 3.7 MMOL/L (3.5-5.1); SODIUM LEVEL 139 MMOL/L (136-145); TOTAL PROTEIN 6.3 G/DL (5.7-8.2)
[2023-04-05] MEDS: IPRATROPIUM 0.5MG/ALBUTEROL 2.5MG INH SOL UD 3ML (DUONEB) NEB SCH ×4 (07:09→20:06)
[2023-04-05] MEDS ORDERED: HOME MED LIST COMPLETE! XX SCH (08:10)
[2023-04-05] MEDS: DOXYCYCLINE HYCLATE 100MG TABLET PO SCH ×2 (08:16→20:20)
[2023-04-05] MEDS: guaiFENesin ER 600 MG TAB PO SCH ×2 (08:16→20:20)
[2023-04-05] MEDS: FOLIC ACID 1MG TAB PO SCH (08:16)
[2023-04-05] MEDS: THIAMINE 100 MG TAB PO SCH ×2 (08:16→20:20)
[2023-04-05] MEDS: MULTIVITAMINS/MINERALS THERAP 1 TAB PO SCH (08:16)
[2023-04-05] MEDS: PANTOPRAZOLE 40MG TAB (PROTONIX) PO SCH (08:17)
[2023-04-05] MEDS: NICOTINE 21MG/24HR 1 EA TRANSDERMAL TD SCH (08:17)
[2023-04-05] MEDS: ENOXAPARIN 40MG/0.4ML SYRINGE (J1650 PER 10MG) SC SCH (08:17)
[2023-04-05] MEDS: LORazepam 2 MG TAB PO PRN ×6 (08:17→20:46)
[2023-04-05] MEDS ORDERED: DEXTROSE 50% 50ML SYRINGE IV PRN (08:30)
[2023-04-05] MEDS ORDERED: GLUCOSE 4GM CHEW TABLET PO PRN (08:30)
[2023-04-05] MEDS ORDERED: GLUCAGON INJ 1MG VIAL SC PRN (08:30)
[2023-04-05] MEDS ORDERED: ONDANSETRON 4MG ORAL DISINTEGRATING TAB PO PRN (08:35)
[2023-04-05 09:00] LABS: CHOLESTEROL LEVEL 204 MG/DL (<200); CHOLESTEROL RISK RATIO 2.48 (<5); LDL CHOLESTEROL 108.6 MG/DL (<100); TRIGLYCERIDES LEVEL 67 MG/DL (<150)
[2023-04-05] MEDS: ESCITALOPRAM OXALATE 10 MG TAB (LEXAPRO) PO SCH (10:43)
[2023-04-05] MEDS: INSULIN LISPRO (NovoLOG) PER UNIT SC SCH ×3 (11:17→20:07)
[2023-04-05] MEDS: cefTRIAXone SOD 1 GM in D5W MINI-BAG PLUS 50 ML IV SCH (13:40)
[2023-04-05] MEDS: OXAZEPAM 15MG CAP PO SCH ×2 (17:04→23:01)
[2023-04-05] MEDS: ATORVASTATIN 20 MG TAB PO SCH (20:20)
[2023-04-06] VITALS (16 sets, daily range): BP systolic 123–134; BP diastolic 69–88; TEMP 96.6–98.1; O2SAT 90–98
[2023-04-06] MEDS: LORazepam 2 MG TAB PO PRN ×2 (02:10→20:17)
[2023-04-06] MEDS: methylPREDNISolone 125MG 2ML VIAL IV SCH ×2 (02:13→15:15)
[2023-04-06] MEDS: OXAZEPAM 15MG CAP PO SCH (05:27)
[2023-04-06] MEDS: ALBUTEROL SULFATE 2.5MG/0.5ML INH NEB SOLN NEB PRN ×2 (05:41→09:17)
[2023-04-06 06:26] LABS: HEMOGLOBIN 14.8 g/dl (13.5-17.5); MEAN CORPUSCULAR HEMOGLOBIN 32.7 pg (27.0-33.0); MEAN CORPUSCULAR HGB CONC 33.6 g/dl (32.0-36.5); MEAN CORPUSCULAR VOLUME 97.1 fl (80.0-96.0); PLATELET COUNT, AUTOMATED 217 10^3/uL (150-450); RED BLOOD COUNT 4.53 10^6/uL (4.30-6.10); WHITE BLOOD COUNT 13.5 10^3/uL (4.0-10.0)
[2023-04-06 06:48] LABS: ALBUMIN 3.3 G/DL (3.2-5.2); ALKALINE PHOSPHATASE 65 U/L (46-116); ALT/SGPT 34 U/L (7.0-40); AST/SGOT 29 U/L (<34); BILIRUBIN,TOTAL 0.6 MG/DL (0.3-1.2); BLOOD UREA NITROGEN < 5 MG/DL (9-23); CALCIUM LEVEL 8.3 MG/DL (8.3-10.6); CARBON DIOXIDE LEVEL 26 MMOL/L (20-31); CHLORIDE LEVEL 105 MMOL/L (98-107); CREATININE FOR GFR 0.52 MG/DL (0.70-1.30); GLOMERULAR FILTRATION RATE > 60.0 (>49); GLUCOSE, FASTING 152 MG/DL (74-106); POTASSIUM SERUM 3.9 MMOL/L (3.5-5.1); SODIUM LEVEL 139 MMOL/L (136-145); TOTAL PROTEIN 6.4 G/DL (5.7-8.2)
[2023-04-06] MEDS: IPRATROPIUM 0.5MG/ALBUTEROL 2.5MG INH SOL UD 3ML (DUONEB) NEB SCH ×4 (07:10→20:07)
[2023-04-06] MEDS: ENOXAPARIN 40MG/0.4ML SYRINGE (J1650 PER 10MG) SC SCH (09:07)
[2023-04-06] MEDS: INSULIN LISPRO (NovoLOG) PER UNIT SC SCH ×4 (09:07→21:00)
[2023-04-06] MEDS: ESCITALOPRAM OXALATE 10 MG TAB (LEXAPRO) PO SCH (09:08)
[2023-04-06] MEDS: DOXYCYCLINE HYCLATE 100MG TABLET PO SCH ×2 (09:08→20:17)
[2023-04-06] MEDS: THIAMINE 100 MG TAB PO SCH ×2 (09:08→20:16)
[2023-04-06] MEDS: MULTIVITAMINS/MINERALS THERAP 1 TAB PO SCH (09:08)
[2023-04-06] MEDS: guaiFENesin ER 600 MG TAB PO SCH ×2 (09:09→20:18)
[2023-04-06] MEDS: FOLIC ACID 1MG TAB PO SCH (09:09)
[2023-04-06] MEDS: PANTOPRAZOLE 40MG TAB (PROTONIX) PO SCH (09:09)
[2023-04-06] MEDS: NICOTINE 21MG/24HR 1 EA TRANSDERMAL TD SCH (09:10)
[2023-04-06] MEDS: cefTRIAXone SOD 1 GM in D5W MINI-BAG PLUS 50 ML IV SCH (15:15)
[2023-04-06] MEDS: OXAZEPAM 10MG CAP PO SCH (17:36)
[2023-04-06] MEDS: ATORVASTATIN 20 MG TAB PO SCH (20:16)
[2023-04-07] MEDS: methylPREDNISolone 125MG 2ML VIAL IV SCH (04:03)
[2023-04-07 04:44] VITALS: BP 147/81; TEMP 97.2; O2SAT 94
[2023-04-07] MEDS: OXAZEPAM 10MG CAP PO SCH (06:19)
[2023-04-07 06:37] LABS: HEMATOCRIT 45.9 % (42.0-52.0); HEMOGLOBIN 15.1 g/dl (13.5-17.5); MEAN CORPUSCULAR HEMOGLOBIN 32.3 pg (27.0-33.0); MEAN CORPUSCULAR HGB CONC 32.9 g/dl (32.0-36.5); MEAN CORPUSCULAR VOLUME 98.1 fl (80.0-96.0); PLATELET COUNT, AUTOMATED 220 10^3/uL (150-450); RED BLOOD COUNT 4.68 10^6/uL (4.30-6.10); WHITE BLOOD COUNT 11.1 10^3/uL (4.0-10.0)
[2023-04-07 06:52] LABS: ALKALINE PHOSPHATASE 59 U/L (46-116); ALT/SGPT 56 U/L (7.0-40); AST/SGOT 50 U/L (<34); BILIRUBIN,TOTAL 0.7 MG/DL (0.3-1.2); BLOOD UREA NITROGEN 13 MG/DL (9-23); CALCIUM LEVEL 8.5 MG/DL (8.3-10.6); CARBON DIOXIDE LEVEL 30 MMOL/L (20-31); CHLORIDE LEVEL 104 MMOL/L (98-107); CREATININE FOR GFR 0.61 MG/DL (0.70-1.30); GLOMERULAR FILTRATION RATE > 60.0 (>49); GLUCOSE, FASTING 123 MG/DL (74-106); POTASSIUM SERUM 4.1 MMOL/L (3.5-5.1); SODIUM LEVEL 139 MMOL/L (136-145)
[2023-04-07 07:00] VITALS: O2SAT 90
[2023-04-07 07:33] VITALS: BP 140/80; TEMP 96.8; O2SAT 94
[2023-04-07 08:00] VITALS: O2SAT 93
[2023-04-07] MEDS: IPRATROPIUM 0.5MG/ALBUTEROL 2.5MG INH SOL UD 3ML (DUONEB) NEB SCH (08:10)
[2023-04-07] MEDS: guaiFENesin ER 600 MG TAB PO SCH (08:16)
[2023-04-07] MEDS: DOXYCYCLINE HYCLATE 100MG TABLET PO SCH (08:16)
[2023-04-07] MEDS: PANTOPRAZOLE 40MG TAB (PROTONIX) PO SCH (08:16)
[2023-04-07] MEDS: ENOXAPARIN 40MG/0.4ML SYRINGE (J1650 PER 10MG) SC SCH (08:16)
[2023-04-07] MEDS: ESCITALOPRAM OXALATE 10 MG TAB (LEXAPRO) PO SCH (08:16)
[2023-04-07] MEDS: THIAMINE 100 MG TAB PO SCH (08:16)
[2023-04-07] MEDS: FOLIC ACID 1MG TAB PO SCH (08:16)
[2023-04-07 08:17] VITALS: BP 140/80
[2023-04-07] MEDS: MULTIVITAMINS/MINERALS THERAP 1 TAB PO SCH (08:17)
[2023-04-07] MEDS: INSULIN LISPRO (NovoLOG) PER UNIT SC SCH (08:17)
[2023-04-07] MEDS: NICOTINE 21MG/24HR 1 EA TRANSDERMAL TD SCH (08:17)
[2023-04-07] MEDS ORDERED: DOXY100T PO (08:57)
[2023-04-07] MEDS ORDERED: FOLI1TAB11 PO (08:57)
[2023-04-07] MEDS ORDERED: CEFD300C41 PO (08:57)
[2023-04-07] MEDS ORDERED: THIA100TA PO (08:57)
[2023-04-07] MEDS ORDERED: VITMTA PO (08:57)
[2023-04-07] MEDS ORDERED: MUCI600T31 PO (08:57)
[2023-04-07] MEDS ORDERED: PRED10TA2 PO (08:57)
[2023-04-07] MEDS ORDERED: PANT40TA29 PO (08:57)
[2023-04-07 09:00] VITALS: O2SAT 93
[2023-04-07] MEDS ORDERED: predniSONE 20 MG TAB PO SCH (09:00)
[2023-04-07] MEDS ORDERED: CEFDINIR 300 MG CAP (OMNICEF) PO SCH (09:00)
[2023-04-07] MEDS ORDERED: OXAZ10CA3 PO (09:00)
== END 2023-04-07 11:05 | disposition home or self-care (01) | DRG 191 ==
LOC: M ED 09:26 → M ED INP 16:48 → ENRESERV 20:04 → M PCU 21:15
PROVIDERS: ADMIT Internal Medicine; ATTEND Internal Medicine Nephrology
DX: J44.1 Chronic obstructive pulmonary disease with (acute) exacerbation (principal); F10.231 Alcohol dependence with withdrawal delirium; J96.11 Chronic respiratory failure with hypoxia; I10 Essential (primary) hypertension; E78.5 Hyperlipidemia, unspecified; K21.9 Gastro-esophageal reflux disease without esophagitis; F41.9 Anxiety disorder, unspecified; F32.A Depression, unspecified; G47.33 Obstructive sleep apnea (adult) (pediatric); F17.210 Nicotine dependence, cigarettes, uncomplicated; K76.0 Fatty (change of) liver, not elsewhere classified; Z99.81 Dependence on supplemental oxygen; Z88.5 Allergy status to narcotic agent; Z79.899 Other long term (current) drug therapy; Z20.822 Contact with and (suspected) exposure to COVID-19

== ENCOUNTER → 2023-04-17 | Outpatient (CLI) | payer MEDICARE, MEDICAID ==
[~2023-04-17] MED LIST changes: +AMLO2.5T3 PO; +ATIV1TAB10 PO; +CEFD300C41 PO; +DOXY100T PO; +LEXA1TAB PO; +MUCI600T31 PO; +ONDA4TAB6 PO; +PANT40TA29 PO; +THIA100TA PO
[2023-04-17 11:37] LABS: BASO # 0.1 10^3/uL (0.0-0.2); BASO % 0.9 % (0.0-1.0); EOS # 0.1 10^3/uL (0.0-0.5); EOS % 0.9 % (0.0-3.0); HEMATOCRIT 44.7 % (42.0-52.0); HEMOGLOBIN 14.8 g/dl (13.5-17.5); LYMPH # 2.8 10^3/uL (1.5-5.0); LYMPH % 22.4 % (24.0-44.0); MEAN CORPUSCULAR HEMOGLOBIN 32.4 pg (27.0-33.0); MEAN CORPUSCULAR HGB CONC 33.1 g/dl (32.0-36.5); MEAN CORPUSCULAR VOLUME 97.8 fl (80.0-96.0); MONO # 0.9 10^3/uL (0.0-0.8); MONO % 6.7 % (2.0-8.0); NEUTROPHILS # 8.6 10^3/uL (1.5-8.5); NEUTROPHILS % 67.9 % (36.0-66.0); PLATELET COUNT, AUTOMATED 284 10^3/uL (150-450); RED BLOOD COUNT 4.57 10^6/uL (4.30-6.10); WHITE BLOOD COUNT 12.6 10^3/uL (4.0-10.0)
[2023-04-17 11:40] LABS: ALBUMIN 3.3 G/DL (3.2-5.2); ALKALINE PHOSPHATASE 76 U/L (46-116); ALT/SGPT 80 U/L (7.0-40); AST/SGOT 35 U/L (<34); BILIRUBIN,TOTAL 0.3 MG/DL (0.3-1.2); BLOOD UREA NITROGEN 9 MG/DL (9-23); CALCIUM LEVEL 8.7 MG/DL (8.3-10.6); CARBON DIOXIDE LEVEL 32 MMOL/L (20-31); CHLORIDE LEVEL 103 MMOL/L (98-107); CREATININE FOR GFR 0.62 MG/DL (0.70-1.30); GLOMERULAR FILTRATION RATE > 60.0 (>49); GLUCOSE, FASTING 103 MG/DL (74-106); POTASSIUM SERUM 3.2 MMOL/L (3.5-5.1); SODIUM LEVEL 141 MMOL/L (136-145); TOTAL PROTEIN 6.1 G/DL (5.7-8.2)
== END ==
LOC: M PLALAB 07:11
PROVIDERS: ATTEND Physician Assistant Medical
DX: J44.9 Chronic obstructive pulmonary disease, unspecified (principal); F10.20 Alcohol dependence, uncomplicated

== ENCOUNTER 2023-06-09 10:48 | Inpatient (IN) | payer MEDICARE, MEDICAID ==
[2023-06-09] VITALS (8 sets, daily range): BP systolic 132–133; BP diastolic 72–75; TEMP 97.9; O2SAT 91–96
[~2023-06-09] VITALS: Ht 175.3 cm; Wt 84.3 kg
[~2023-06-09 10:48] MED LIST changes: +AZITHROMYCIN 250MG TABLET PO SCH; -CEFD300C41 PO; +CEFD300C42 PO
[2023-06-09] MEDS ORDERED: methylPREDNISolone 125MG 2ML VIAL IV ONE (11:10)
[2023-06-09] MEDS ORDERED: IPRATROPIUM 0.5MG/ALBUTEROL 2.5MG INH SOL UD 3ML (DUONEB) NEB PRN (11:10)
[2023-06-09] MEDS ORDERED: LORazepam 2 MG TAB PO PRN (11:15)
[2023-06-09 11:31] LABS: BASO # 0.1 10^3/uL (0.0-0.2); BASO % 0.9 % (0.0-1.0); EOS # 0.2 10^3/uL (0.0-0.5); EOS % 1.8 % (0.0-3.0); HEMATOCRIT 50.9 % (42.0-52.0); HEMOGLOBIN 16.8 g/dl (13.5-17.5); LYMPH # 1.8 10^3/uL (1.5-5.0); LYMPH % 21.2 % (24.0-44.0); MEAN CORPUSCULAR HEMOGLOBIN 32.3 pg (27.0-33.0); MEAN CORPUSCULAR VOLUME 97.9 fl (80.0-96.0); MONO # 0.7 10^3/uL (0.0-0.8); MONO % 8.4 % (2.0-8.0); NEUTROPHILS # 5.7 10^3/uL (1.5-8.5); NEUTROPHILS % 67.3 % (36.0-66.0); PLATELET COUNT, AUTOMATED 248 10^3/uL (150-450); WHITE BLOOD COUNT 8.5 10^3/uL (4.0-10.0)
[2023-06-09 11:34] LABS: VENOUS BASE EXCESS -2.1 (-2.0-2.0); VENOUS HCO3 24.7 MMOL/L (23.0-27.0); VENOUS O2 SATURATION 89.2 % (60.0-80.0); VENOUS PARTIAL PRESSURE CO2 49.7 mmHg (38.0-50.0); VENOUS PARTIAL PRESSURE O2 61.6 mmHg (30.0-50.0); VENOUS PH 7.315 UNITS (7.330-7.430); VENOUS STANDARD HCO3 22.5 MMOL/L; VENOUS TOTAL CO2 26.3 MMOL/L (24.0-28.0)
[2023-06-09] MEDS ORDERED: LORazepam 1 MG TAB PO PRN (12:09)
[2023-06-09 12:30] LABS: ABG BASE EXCESS -1.6 (-2.0-2.0); ABG HCO3 24.7 MMOL/L (22.0-26.0); ABG O2 SATURATION 88.1 % (95.0-99.0); ABG PARTIAL PRESSURE CO2 47.1 mmHg (35.0-45.0); ABG PARTIAL PRESSURE O2 58.3 mmHg (75.0-100.0); ABG STANDARD HCO3 22.9 MMOL/L. (22.0-26.0); ABG TOTAL CO2 26.2 MMOL/L (23.0-31.0); ABG pH (ARTERIAL) 7.338 UNITS (7.350-7.450)
[2023-06-09 12:31] LABS: ALBUMIN 3.6 G/DL (3.2-5.2); ALKALINE PHOSPHATASE 79 U/L (46-116); ALT/SGPT 110 U/L (7.0-40); AST/SGOT 135 U/L (<34); BILIRUBIN,DIRECT 0.1 MG/DL (<0.4); BILIRUBIN,TOTAL 0.4 MG/DL (0.3-1.2); BLOOD UREA NITROGEN 10 MG/DL (9-23); CALCIUM LEVEL 8.4 MG/DL (8.3-10.6); CARBON DIOXIDE LEVEL 21 MMOL/L (20-31); CHLORIDE LEVEL 100 MMOL/L (98-107); CREATININE FOR GFR 0.56 MG/DL (0.70-1.30); GLOMERULAR FILTRATION RATE > 60.0 (>49); GLUCOSE, FASTING 62 MG/DL (74-106); POTASSIUM SERUM 5.2 MMOL/L (3.5-5.1); SODIUM LEVEL 139 MMOL/L (136-145)
[2023-06-09 12:33] LABS: THYROID STIMULATING HORMONE 1.649 uIU/ML (0.55-4.78)
[2023-06-09 12:42] LABS: ETHYL ALCOHOL (ETHANOL) 0.318 % (0.000-0.010)
[2023-06-09] MEDS ORDERED: MED REC IN PROGRESS XX SCH (14:25)
[2023-06-09] MEDS ORDERED: TREL1AER INH (14:50)
[2023-06-09] MEDS ORDERED: ACET32TAB PO (14:50)
[2023-06-09] MEDS ORDERED: HOME MED LIST COMPLETE! XX SCH (14:55)
[2023-06-09] MEDS ORDERED: MOM 30ML SUSPENSION UDC PO PRN (15:20)
[2023-06-09] MEDS ORDERED: MAALOX 30 ML SUSP *UDC PO PRN (15:20)
[2023-06-09] MEDS ORDERED: NS 1,000 ML IV ONE (16:20)
[2023-06-09 17:34] LABS: ABG BASE EXCESS -4.8 (-2.0-2.0); ABG HCO3 21.2 MMOL/L (22.0-26.0); ABG O2 SATURATION 94.2 % (95.0-99.0); ABG PARTIAL PRESSURE CO2 42.5 mmHg (35.0-45.0); ABG PARTIAL PRESSURE O2 78.3 mmHg (75.0-100.0); ABG STANDARD HCO3 20.5 MMOL/L. (22.0-26.0); ABG TOTAL CO2 22.5 MMOL/L (23.0-31.0); ABG pH (ARTERIAL) 7.316 UNITS (7.350-7.450)
[2023-06-09] MEDS: NICOTINE 21MG/24HR 1 EA TRANSDERMAL TD SCH (17:42)
[2023-06-09] MEDS: FOLIC ACID 1MG TAB PO SCH (17:42)
[2023-06-09] MEDS: OXAZEPAM 15MG CAP PO SCH ×2 (17:42→21:21)
[2023-06-09] MEDS: MULTIVITAMINS/MINERALS THERAP 1 TAB PO SCH (17:42)
[2023-06-09] MEDS: THIAMINE 100 MG TAB PO SCH (17:43)
[2023-06-09 17:45] LABS: BLOOD UREA NITROGEN 13 MG/DL (9-23); CALCIUM LEVEL 8.6 MG/DL (8.3-10.6); CARBON DIOXIDE LEVEL 23 MMOL/L (20-31); CHLORIDE LEVEL 101 MMOL/L (98-107); CREATININE FOR GFR 0.56 MG/DL (0.70-1.30); GLOMERULAR FILTRATION RATE > 60.0 (>49); GLUCOSE, FASTING 66 MG/DL (74-106); POTASSIUM SERUM 4.6 MMOL/L (3.5-5.1); SODIUM LEVEL 142 MMOL/L (136-145)
[2023-06-09] MEDS: ACETAMINOPHEN TAB 650MG DOSE (2X325MG) PO PRN (20:33)
[2023-06-09] MEDS: ENOXAPARIN 40MG/0.4ML SYRINGE (J1650 PER 10MG) SC SCH (20:33)
[2023-06-09] MEDS: DOXYCYCLINE HYCLATE 100MG TABLET PO SCH (20:34)
[2023-06-09] MEDS: FORMOTEROL FUMARATE 20 MCG/2 ML INHALATION SOLUTION (PERFOROMIST) INH SCH (20:45)
[2023-06-09] MEDS: BUDESONIDE 0.5 MG/2 ML INHALATION SUSPENSION INH SCH (20:45)
[2023-06-09] MEDS ORDERED: THIAMINE 100 MG TAB PO SCH (21:00)
[2023-06-09] MEDS ORDERED: methylPREDNISolone 40MG 1ML VIAL IV SCH (21:00)
[2023-06-09] MEDS ORDERED: SODIUM CHLORIDE 0.9% 1000ML IV ONE (21:10)
[2023-06-10] VITALS (22 sets, daily range): BP systolic 113–138; BP diastolic 61–75; TEMP 97.5–98.4; O2SAT 89–96
[2023-06-10] MEDS: IPRATROPIUM 0.5MG/ALBUTEROL 2.5MG INH SOL UD 3ML (DUONEB) NEB SCH ×4 (00:23→19:46)
[2023-06-10] MEDS: LORazepam 2 MG TAB PO PRN (00:43)
[2023-06-10] MEDS: OXAZEPAM 15MG CAP PO SCH ×3 (05:15→21:21)
[2023-06-10 05:49] LABS: BLOOD UREA NITROGEN 11 MG/DL (9-23); CALCIUM LEVEL 7.8 MG/DL (8.3-10.6); CARBON DIOXIDE LEVEL 26 MMOL/L (20-31); CHLORIDE LEVEL 101 MMOL/L (98-107); CREATININE FOR GFR 0.52 MG/DL (0.70-1.30); GLOMERULAR FILTRATION RATE > 60.0 (>49); GLUCOSE, FASTING 208 MG/DL (74-106); MAGNESIUM LEVEL 1.4 MG/DL (1.8-2.4); POTASSIUM SERUM 4.3 MMOL/L (3.5-5.1); SODIUM LEVEL 137 MMOL/L (136-145)
[2023-06-10] MEDS ORDERED: GLUCOSE 4GM CHEW TABLET PO PRN (07:40)
[2023-06-10] MEDS ORDERED: DEXTROSE 50% 50ML SYRINGE IV PRN (07:40)
[2023-06-10] MEDS ORDERED: GLUCAGON INJ 1MG VIAL SC PRN (07:40)
[2023-06-10] MEDS: BUDESONIDE 0.5 MG/2 ML INHALATION SUSPENSION INH SCH (07:41)
[2023-06-10] MEDS: FORMOTEROL FUMARATE 20 MCG/2 ML INHALATION SOLUTION (PERFOROMIST) INH SCH (07:41)
[2023-06-10] MEDS: INSULIN LISPRO (NovoLOG) PER UNIT SC SCH ×4 (08:57→21:00)
[2023-06-10] MEDS: MULTIVITAMINS/MINERALS THERAP 1 TAB PO SCH (08:58)
[2023-06-10] MEDS: ESCITALOPRAM OXALATE 10 MG TAB (LEXAPRO) PO SCH (08:58)
[2023-06-10] MEDS: THIAMINE 100 MG TAB PO SCH ×2 (08:58→21:20)
[2023-06-10] MEDS: DOXYCYCLINE HYCLATE 100MG TABLET PO SCH ×2 (08:58→21:20)
[2023-06-10] MEDS: FOLIC ACID 1MG TAB PO SCH (08:58)
[2023-06-10] MEDS: MAG SULF 1GM/100ML (MAG RUN) 1 GM in IV 1 EA IV SCH ×3 (08:59→11:26)
[2023-06-10] MEDS ORDERED: MULTIVITAMINS/MINERALS THERAP 1 TAB PO SCH (09:00)
[2023-06-10] MEDS ORDERED: methylPREDNISolone 40MG 1ML VIAL IV SCH (09:00)
[2023-06-10] MEDS ORDERED: FOLIC ACID 1MG TAB PO SCH (09:00)
[2023-06-10] MEDS ORDERED: ALBUTEROL 90 MCG/ACT 8GM HFA INHALER INH PRN (11:10)
[2023-06-10] MEDS: ACETAMINOPHEN TAB 650MG DOSE (2X325MG) PO PRN (16:29)
[2023-06-10] MEDS: TIOTROPIUM INHALER/CAPSULE (SPIRIVA) INH SCH (16:35)
[2023-06-10] MEDS: NICOTINE 21MG/24HR 1 EA TRANSDERMAL TD SCH (17:28)
[2023-06-10] MEDS: SYMBICORT 160/4.5MCG INHALER 6GM INH SCH (19:46)
[2023-06-10] MEDS: ATORVASTATIN 20 MG TAB PO SCH (21:20)
[2023-06-10] MEDS: ENOXAPARIN 40MG/0.4ML SYRINGE (J1650 PER 10MG) SC SCH (21:21)
[2023-06-11] VITALS (23 sets, daily range): BP systolic 109–142; BP diastolic 68–84; TEMP 96.8–97.7; O2SAT 93–98
[2023-06-11] MEDS: ACETAMINOPHEN TAB 650MG DOSE (2X325MG) PO PRN ×2 (04:26→18:02)
[2023-06-11] MEDS: LORazepam 2 MG TAB PO PRN (04:31)
[2023-06-11] MEDS: OXAZEPAM 15MG CAP PO SCH ×2 (05:08→17:57)
[2023-06-11] MEDS: SYMBICORT 160/4.5MCG INHALER 6GM INH SCH ×2 (07:24→20:27)
[2023-06-11] MEDS: IPRATROPIUM 0.5MG/ALBUTEROL 2.5MG INH SOL UD 3ML (DUONEB) NEB SCH ×3 (07:25→20:27)
[2023-06-11] MEDS: TIOTROPIUM INHALER/CAPSULE (SPIRIVA) INH SCH (08:00)
[2023-06-11] MEDS: INSULIN LISPRO (NovoLOG) PER UNIT SC SCH ×4 (09:12→21:00)
[2023-06-11] MEDS: THIAMINE 100 MG TAB PO SCH ×2 (09:12→20:24)
[2023-06-11] MEDS: DOXYCYCLINE HYCLATE 100MG TABLET PO SCH ×2 (09:12→20:24)
[2023-06-11] MEDS: FOLIC ACID 1MG TAB PO SCH (09:12)
[2023-06-11] MEDS: predniSONE 20 MG TAB PO SCH (09:12)
[2023-06-11] MEDS: ESCITALOPRAM OXALATE 10 MG TAB (LEXAPRO) PO SCH (09:12)
[2023-06-11] MEDS: MULTIVITAMINS/MINERALS THERAP 1 TAB PO SCH (09:12)
[2023-06-11 17:42] LABS: HEPATITIS B CORE ANTIBODY IGM NEGATIVE (NEGATIVE); HEPATITIS C VIRUS ABY INDEX 0.05 INDEX (<0.8)
[2023-06-11 17:47] LABS: ALBUMIN 3.1 G/DL (3.2-5.2); ALKALINE PHOSPHATASE 75 U/L (46-116); ALT/SGPT 89 U/L (7.0-40); AST/SGOT 89 U/L (<34); BILIRUBIN,DIRECT 0.4 MG/DL (<0.4); BILIRUBIN,TOTAL 1.2 MG/DL (0.3-1.2); TOTAL PROTEIN 6.3 G/DL (5.7-8.2)
[2023-06-11] MEDS: NICOTINE 21MG/24HR 1 EA TRANSDERMAL TD SCH (17:56)
[2023-06-11] MEDS: ATORVASTATIN 20 MG TAB PO SCH (20:24)
[2023-06-11] MEDS: ENOXAPARIN 40MG/0.4ML SYRINGE (J1650 PER 10MG) SC SCH (20:24)
[2023-06-12] VITALS (19 sets, daily range): BP systolic 133–145; BP diastolic 56–81; TEMP 97.2–97.6; O2SAT 87–97
[2023-06-12] MEDS: OXAZEPAM 15MG CAP PO SCH (06:07)
[2023-06-12] MEDS: IPRATROPIUM 0.5MG/ALBUTEROL 2.5MG INH SOL UD 3ML (DUONEB) NEB SCH (07:21)
[2023-06-12] MEDS: SYMBICORT 160/4.5MCG INHALER 6GM INH SCH (07:21)
[2023-06-12] MEDS: TIOTROPIUM INHALER/CAPSULE (SPIRIVA) INH SCH (07:21)
[2023-06-12 08:16] LABS: BLOOD UREA NITROGEN 9 MG/DL (9-23); CALCIUM LEVEL 8.5 MG/DL (8.3-10.6); CARBON DIOXIDE LEVEL 32 MMOL/L (20-31); CHLORIDE LEVEL 105 MMOL/L (98-107); CREATININE FOR GFR 0.53 MG/DL (0.70-1.30); GLOMERULAR FILTRATION RATE > 60.0 (>49); GLUCOSE, FASTING 94 MG/DL (74-106); MAGNESIUM LEVEL 1.7 MG/DL (1.8-2.4); POTASSIUM SERUM 3.5 MMOL/L (3.5-5.1); SODIUM LEVEL 142 MMOL/L (136-145)
[2023-06-12] MEDS: THIAMINE 100 MG TAB PO SCH (08:24)
[2023-06-12] MEDS: DOXYCYCLINE HYCLATE 100MG TABLET PO SCH (08:24)
[2023-06-12] MEDS: MULTIVITAMINS/MINERALS THERAP 1 TAB PO SCH (08:25)
[2023-06-12] MEDS: ESCITALOPRAM OXALATE 10 MG TAB (LEXAPRO) PO SCH (08:25)
[2023-06-12] MEDS: predniSONE 20 MG TAB PO SCH (08:25)
[2023-06-12] MEDS: FOLIC ACID 1MG TAB PO SCH (08:25)
[2023-06-12] MEDS: INSULIN LISPRO (NovoLOG) PER UNIT SC SCH ×2 (08:28→12:42)
[2023-06-12] MEDS: NICOTINE 21MG/24HR 1 EA TRANSDERMAL TD SCH (08:30)
[2023-06-12] MEDS ORDERED: DOXY100T PO (09:58)
[2023-06-12] MEDS ORDERED: THIA100TA PO (09:58)
[2023-06-12] MEDS ORDERED: VITMTA PO (09:58)
[2023-06-12] MEDS ORDERED: FOLI1TAB11 PO (09:58)
[2023-06-12] MEDS ORDERED: PRED10TA2 PO (09:58)
== END 2023-06-12 14:20 | disposition home or self-care (01) | DRG 191 ==
LOC: M ED 10:48 → EDBD 10:48 → M ED INP 15:19 → ENRESERV 15:29 → M PCU 16:19
PROVIDERS: ADMIT Student in an Organized Health Care Education/Training Program; ATTEND Internal Medicine
DX: J44.1 Chronic obstructive pulmonary disease with (acute) exacerbation (principal); J96.11 Chronic respiratory failure with hypoxia; J96.12 Chronic respiratory failure with hypercapnia; F10.239 Alcohol dependence with withdrawal, unspecified; E87.20 Acidosis, unspecified; K22.4 Dyskinesia of esophagus; K57.90 Diverticulosis of intestine, part unspecified, without perforation or abscess without bleeding; E87.5 Hyperkalemia; R19.7 Diarrhea, unspecified; Z99.81 Dependence on supplemental oxygen; G47.33 Obstructive sleep apnea (adult) (pediatric); E86.0 Dehydration; I10 Essential (primary) hypertension; E78.5 Hyperlipidemia, unspecified; K21.9 Gastro-esophageal reflux disease without esophagitis; K70.10 Alcoholic hepatitis without ascites; E83.42 Hypomagnesemia; R74.01 Elevation of levels of liver transaminase levels; Z91.119 Patient's noncompliance with dietary regimen due to unspecified reason; F17.200 Nicotine dependence, unspecified, uncomplicated; F41.9 Anxiety disorder, unspecified; F32.A Depression, unspecified; Z88.5 Allergy status to narcotic agent; Z79.899 Other long term (current) drug therapy; R73.9 Hyperglycemia, unspecified; K76.0 Fatty (change of) liver, not elsewhere classified

== ENCOUNTER → 2023-06-18 | Outpatient (CLI) | payer MEDICARE, MEDICAID ==
[~2023-06-18] MED LIST changes: +ACET32TAB PO; -AZITHROMYCIN 250MG TABLET PO SCH; +TREL1AER INH
[2023-06-18 11:21] LABS: BASO # 0.1 10^3/uL (0.0-0.2); BASO % 0.8 % (0.0-1.0); EOS # 0.2 10^3/uL (0.0-0.5); EOS % 1.9 % (0.0-3.0); HEMATOCRIT 45.6 % (42.0-52.0); LYMPH # 2.2 10^3/uL (1.5-5.0); MEAN CORPUSCULAR HEMOGLOBIN 33.1 pg (27.0-33.0); MEAN CORPUSCULAR HGB CONC 32.9 g/dl (32.0-36.5); MEAN CORPUSCULAR VOLUME 100.7 fl (80.0-96.0); MONO # 1.2 10^3/uL (0.0-0.8); MONO % 14.5 % (2.0-8.0); NEUTROPHILS # 4.8 10^3/uL (1.5-8.5); NEUTROPHILS % 56.2 % (36.0-66.0); PLATELET COUNT, AUTOMATED 243 10^3/uL (150-450); RED BLOOD COUNT 4.53 10^6/uL (4.30-6.10); WHITE BLOOD COUNT 8.5 10^3/uL (4.0-10.0)
[2023-06-18 11:48] LABS: ALBUMIN 3.3 G/DL (3.2-5.2); ALKALINE PHOSPHATASE 77 U/L (46-116); ALT/SGPT 270 U/L (7.0-40); AST/SGOT 106 U/L (<34); BILIRUBIN,TOTAL 0.6 MG/DL (0.3-1.2); BLOOD UREA NITROGEN 12 MG/DL (9-23); CARBON DIOXIDE LEVEL 33 MMOL/L (20-31); CHLORIDE LEVEL 102 MMOL/L (98-107); CREATININE FOR GFR 0.69 MG/DL (0.70-1.30); GLOMERULAR FILTRATION RATE > 60.0 (>49); GLUCOSE, FASTING 77 MG/DL (74-106); MAGNESIUM LEVEL 1.6 MG/DL (1.8-2.4); POTASSIUM SERUM 4.1 MMOL/L (3.5-5.1); SODIUM LEVEL 140 MMOL/L (136-145); TOTAL PROTEIN 5.7 G/DL (5.7-8.2)
== END ==
LOC: M PLALAB 07:46
PROVIDERS: ATTEND Physician Assistant Medical
DX: E87.8 Other disorders of electrolyte and fluid balance, not elsewhere classified (principal); R73.9 Hyperglycemia, unspecified; R74.01 Elevation of levels of liver transaminase levels; I10 Essential (primary) hypertension

== ENCOUNTER → 2023-07-23 | Outpatient (CLI) | payer MEDICAID, MEDICARE ==
[~2023-07-23] MED LIST changes: +CEFD1CAP9 PO; -CEFD300C42 PO
[2023-07-23 10:26] LABS: BASO # 0.1 10^3/uL (0.0-0.2); BASO % 0.9 % (0.0-1.0); EOS # 0.2 10^3/uL (0.0-0.5); EOS % 2.3 % (0.0-3.0); HEMATOCRIT 48.9 % (42.0-52.0); HEMOGLOBIN 16.2 g/dl (13.5-17.5); LYMPH # 2.3 10^3/uL (1.5-5.0); LYMPH % 26.6 % (24.0-44.0); MEAN CORPUSCULAR HEMOGLOBIN 32.5 pg (27.0-33.0); MEAN CORPUSCULAR HGB CONC 33.1 g/dl (32.0-36.5); MEAN CORPUSCULAR VOLUME 98.2 fl (80.0-96.0); MONO # 0.8 10^3/uL (0.0-0.8); NEUTROPHILS # 5.2 10^3/uL (1.5-8.5); NEUTROPHILS % 60.8 % (36.0-66.0); PLATELET COUNT, AUTOMATED 288 10^3/uL (150-450); RED BLOOD COUNT 4.98 10^6/uL (4.30-6.10); WHITE BLOOD COUNT 8.6 10^3/uL (4.0-10.0)
[2023-07-23 10:41] LABS: ALBUMIN 3.6 G/DL (3.2-5.2); ALKALINE PHOSPHATASE 72 U/L (46-116); ALT/SGPT 33 U/L (7.0-40); AST/SGOT 30 U/L (<34); BILIRUBIN,TOTAL 0.6 MG/DL (0.3-1.2); BLOOD UREA NITROGEN 7 MG/DL (9-23); CARBON DIOXIDE LEVEL 30 MMOL/L (20-31); CHLORIDE LEVEL 106 MMOL/L (98-107); CREATININE FOR GFR 0.61 MG/DL (0.70-1.30); GLOMERULAR FILTRATION RATE > 60.0 (>49); GLUCOSE, FASTING 76 MG/DL (74-106); POTASSIUM SERUM 4.7 MMOL/L (3.5-5.1); SODIUM LEVEL 143 MMOL/L (136-145); TOTAL PROTEIN 6.5 G/DL (5.7-8.2)
== END ==
LOC: M PLALAB 08:55
PROVIDERS: ATTEND Physician Assistant Medical
DX: F10.10 Alcohol abuse, uncomplicated (principal); I10 Essential (primary) hypertension; K52.9 Noninfective gastroenteritis and colitis, unspecified; J44.9 Chronic obstructive pulmonary disease, unspecified

== ENCOUNTER 2023-10-12 14:33 | Inpatient (IN) | payer MEDICAID, MEDICARE ==
[~2023-10-12] VITALS: Ht 175.3 cm; Wt 85.5 kg
[2023-10-12 15:13] LABS: HEMATOCRIT 49.1 % (42.0-52.0); MEAN CORPUSCULAR HEMOGLOBIN 30.1 pg (27.0-33.0); MEAN CORPUSCULAR HGB CONC 32.6 g/dl (32.0-36.5); MEAN CORPUSCULAR VOLUME 92.3 fl (80.0-96.0); PLATELET COUNT, AUTOMATED 258 10^3/uL (150-450); RED BLOOD COUNT 5.32 10^6/uL (4.30-6.10); WHITE BLOOD COUNT 10.6 10^3/uL (4.0-10.0)
[2023-10-12 15:37] LABS: ALBUMIN 3.7 G/DL (3.2-5.2); ALKALINE PHOSPHATASE 78 U/L (46-116); ALT/SGPT 52 U/L (7.0-40); AST/SGOT 42 U/L (<34); BILIRUBIN,DIRECT 0.2 MG/DL (<0.4); BILIRUBIN,TOTAL 0.6 MG/DL (0.3-1.2); BLOOD UREA NITROGEN 9 MG/DL (9-23); CARBON DIOXIDE LEVEL 26 MMOL/L (20-31); CHLORIDE LEVEL 103 MMOL/L (98-107); CREATININE FOR GFR 0.64 MG/DL (0.70-1.30); GLOMERULAR FILTRATION RATE > 60.0 (>49); GLUCOSE, FASTING 80 MG/DL (74-106); POTASSIUM SERUM 3.7 MMOL/L (3.5-5.1); SALICYLATE LEVEL < 3.0 MG/DL (<30); SODIUM LEVEL 138 MMOL/L (136-145); TOTAL PROTEIN 6.9 G/DL (5.7-8.2)
[2023-10-12 15:40] LABS: THYROID STIMULATING HORMONE 2.776 uIU/ML (0.55-4.78)
[2023-10-12 15:53] LABS: ETHYL ALCOHOL (ETHANOL) 0.301 % (0.000-0.010)
[2023-10-12] MEDS ORDERED: THIA100TA PO (16:26)
[2023-10-12] MEDS ORDERED: HOME MED LIST COMPLETE! XX SCH (16:35)
[2023-10-12 19:35] LABS: AMPHETAMINES LEVEL URINE NEGATIVE (NEGATIVE); BARBITURATES URINE NEGATIVE (NEGATIVE); BENZODIAZEPINES URINE NEGATIVE (NEGATIVE); COCAINE METABOLITE URINE NEGATIVE (NEGATIVE); METHADONE URINE NEGATIVE (NEGATIVE); OPIATES URINE NEGATIVE (NEGATIVE); PHENCYCLIDINE URINE NEGATIVE (NEGATIVE)
[2023-10-12 19:36] LABS: CANNABINOIDS URINE POSITIVE (NEGATIVE)
[2023-10-12] MEDS: OXAZEPAM 15MG CAP PO ONE (21:45)
[2023-10-12] MEDS: ATORVASTATIN 20 MG TAB PO ONE (21:45)
[2023-10-13] MEDS ORDERED: ACETAMINOPHEN TAB 650MG DOSE (2X325MG) PO PRN (05:40)
[2023-10-13] MEDS ORDERED: MAALOX 30 ML SUSP *UDC PO PRN (05:40)
[2023-10-13] MEDS ORDERED: IBUPROFEN 400MG TAB PO PRN (05:40)
[2023-10-13] MEDS ORDERED: MOM 30ML SUSPENSION UDC PO PRN (05:40)
[2023-10-13] MEDS: FLUTICASONE HFA 220 MCG 12 GM INHALER (FLOVENT) INH STA (05:55)
[2023-10-13] MEDS: COMBIVENT RESPIMAT 100-20MCG INHALER 4GM INH STA (05:55)
[2023-10-13 09:18] VITALS: BP 126/88; TEMP 98.9; O2SAT 94
[2023-10-13] MEDS ORDERED: LORazepam 2 MG TAB PO PRN (11:50)
[2023-10-13] MEDS: OXAZEPAM 10MG CAP PO SCH (12:00)
[2023-10-13] MEDS: MULTIVITAMINS/MINERALS THERAP 1 TAB PO SCH (12:27)
[2023-10-13] MEDS: FOLIC ACID 1MG TAB PO SCH (12:28)
[2023-10-13] MEDS: THIAMINE 100 MG TAB PO SCH (12:28)
[2023-10-13] MEDS ORDERED: IPRATROPIUM 0.5MG/ALBUTEROL 2.5MG INH SOL UD 3ML (DUONEB) NEB PRN (13:40)
[2023-10-13] MEDS ORDERED: ISOVUE-370 76% 100ML VIAL As Ordered ONE (13:56)
[2023-10-13 14:32] LABS: PROCALCITONIN 0.08 ng/ml
[2023-10-13 14:35] VITALS: BP 143/73; TEMP 97.9; O2SAT 92
[2023-10-13] MEDS: IPRATROPIUM 0.5MG/ALBUTEROL 2.5MG INH SOL UD 3ML (DUONEB) NEB SCH (15:07)
[2023-10-13] MEDS: predniSONE 10MG TAB PO SCH (16:11)
[2023-10-13] MEDS: NICOTINE 21MG/24HR 1 EA TRANSDERMAL TD SCH (16:39)
[2023-10-13 18:23] VITALS: BP 143/73; TEMP 97.9; O2SAT 92
[2023-10-13 21:00] LABS: HIV 1&2 SCREEN NEGATIVE (NEGATIVE)
[2023-10-13 21:09] LABS: HEPATITIS B CORE ANTIBODY IGM NEGATIVE (NEGATIVE); HEPATITIS C VIRUS ABY INDEX 0.05 INDEX (<0.8)
[2023-10-13] MEDS: NYSTATIN 100,000 UNITS/GM TOPICAL PWD 15GM TOP SCH (21:33)
[2023-10-13] MEDS: ATORVASTATIN 20 MG TAB PO SCH (21:34)
[2023-10-13 21:52] VITALS: BP 119/71; O2SAT 94
[2023-10-13 22:16] VITALS: BP 119/71
[2023-10-13] MEDS: ADVAIR HFA 115/21MCG INHALER INH SCH (22:17)
[2023-10-13] MEDS: traZODone 50 MG TAB PO PRN (22:24)
[2023-10-14 06:40] VITALS: BP 128/68
[2023-10-14 06:47] VITALS: BP 128/68; TEMP 97.9; O2SAT 95
[2023-10-14] MEDS ORDERED: ESCITALOPRAM OXALATE 10 MG TAB (LEXAPRO) PO SCH (09:00)
[2023-10-14] MEDS: PANTOPRAZOLE 40MG TAB (PROTONIX) PO SCH (09:04)
[2023-10-14] MEDS: ESCITALOPRAM OXALATE 5MG TABLET (LEXAPRO) PO SCH (11:34)
[2023-10-14] MEDS: ACAMPROSATE CALCIUM 333MG TABLET (CAMPRAL) PO SCH (15:35)
[2023-10-14 16:00] VITALS: BP 148/80
[2023-10-14] MEDS: diphenhydrAMINE 25MG CAP PO PRN (17:11)
[2023-10-14 17:39] VITALS: BP 148/80; TEMP 97.8; O2SAT 94
[2023-10-14 22:15] VITALS: BP 158/86
[2023-10-15 06:27] VITALS: BP 131/61; TEMP 97.3; O2SAT 90
[2023-10-15 07:27] VITALS: BP 131/61
[2023-10-15 15:00] VITALS: BP 147/77; TEMP 97.4; O2SAT 96
[2023-10-15 15:30] VITALS: BP 147/77
[2023-10-15] MEDS: traZODone 50 MG TAB PO PRN (21:11)
[2023-10-16 06:18] VITALS: BP 148/88; TEMP 98.6; O2SAT 95
[2023-10-16 07:21] VITALS: BP 148/88
[2023-10-16 08:45] VITALS: BP 146/86
[2023-10-16] MEDS ORDERED: IPRA0.00 NEB ×2 (09:26)
[2023-10-16] MEDS ORDERED: TRAZ-252 PO (09:26)
[2023-10-16] MEDS ORDERED: ACAM0.05 PO (09:26)
[2023-10-16] MEDS ORDERED: LEXA5TAB13 PO (09:26)
[2023-10-16] MEDS ORDERED: OXAZ10CA3 PO (09:26)
[2023-10-16] MEDS ORDERED: NICO21PAT TD (09:26)
[2023-10-16] MEDS ORDERED: NYST10006 TOP (09:26)
[2023-10-16] MEDS ORDERED: PANT40TA29 PO (09:26)
[2023-10-16] MEDS ORDERED: PRED10TA2 PO (09:26)
[2023-10-16] MEDS ORDERED: LEXA1TAB PO (09:26)
== END 2023-10-16 10:26 | disposition home or self-care (01) | DRG 881 ==
LOC: M ED 14:33 → M ED INP 10-13 05:39 → M PSY 10-13 09:01
PROVIDERS: ADMIT Student in an Organized Health Care Education/Training Program; ATTEND Student in an Organized Health Care Education/Training Program
DX: F32.A Depression, unspecified (principal); R45.851 Suicidal ideations; N50.3 Cyst of epididymis; F10.220 Alcohol dependence with intoxication, uncomplicated; F41.9 Anxiety disorder, unspecified; F17.200 Nicotine dependence, unspecified, uncomplicated; J44.9 Chronic obstructive pulmonary disease, unspecified; I10 Essential (primary) hypertension; G47.33 Obstructive sleep apnea (adult) (pediatric); A63.0 Anogenital (venereal) warts; E78.5 Hyperlipidemia, unspecified; K76.0 Fatty (change of) liver, not elsewhere classified; R19.7 Diarrhea, unspecified; K21.9 Gastro-esophageal reflux disease without esophagitis; Z91.51 Personal history of suicidal behavior; Z99.81 Dependence on supplemental oxygen; Z71.6 Tobacco abuse counseling; Z79.899 Other long term (current) drug therapy; Z88.5 Allergy status to narcotic agent; Z11.52 Encounter for screening for COVID-19

== ENCOUNTER → 2023-10-19 | Outpatient (CLI) | payer MEDICARE ==
[~2023-10-19] MED LIST changes: +ACAM0.05 PO; +IPRA0.00 NEB; +LEXA5TAB13 PO; +NICO21PAT TD; +NYST10006 TOP
== END ==
LOC: M OUTALCOH 08:48
PROVIDERS: ATTEND Psychiatry & Neurology Psychiatry
DX: F10.20 Alcohol dependence, uncomplicated (principal); F12.20 Cannabis dependence, uncomplicated; F17.200 Nicotine dependence, unspecified, uncomplicated

== ENCOUNTER 2023-10-26 08:03 | Outpatient (RCR) | payer MEDICARE | END 2023-11-08 | LOC: M OUTALCOH 08:03 | PROVIDERS: ATTEND Psychiatry & Neurology Psychiatry | DX: F10.20 Alcohol dependence, uncomplicated (principal); F12.10 Cannabis abuse, uncomplicated ==

== ENCOUNTER → 2023-11-19 | Outpatient (CLI) | payer MEDICAID, MEDICARE ==
[~2023-11-19] MED LIST changes: +PROHANCE 279.3MG/ML 15ML VIAL ONE; +PROHANCE 279.3MG/ML 5ML VIAL ONE
== END ==
LOC: M PLAIMG 10:24
PROVIDERS: ATTEND Nurse Practitioner Family
DX: A63.0 Anogenital (venereal) warts (principal); R59.0 Localized enlarged lymph nodes; K40.90 Unilateral inguinal hernia, without obstruction or gangrene, not specified as recurrent
CPT/HCPCS: 72197; A9576

== ENCOUNTER → 2023-11-24 | Outpatient (REF) | payer MEDICARE, MEDICAID ==
[~2023-11-24] MED LIST changes: -PROHANCE 279.3MG/ML 15ML VIAL ONE; -PROHANCE 279.3MG/ML 5ML VIAL ONE
== END ==
LOC: M SMT 17:02
PROVIDERS: ATTEND Urology
DX: A63.0 Anogenital (venereal) warts (principal); Z79.899 Other long term (current) drug therapy

== ENCOUNTER → 2023-12-24 | Outpatient (CLI) | payer MEDICAID, MEDICARE ==
[~2023-12-24] MED LIST changes: +DOXY-323 PO; -DOXY-443 PO
[2023-12-24 12:47] LABS: HEMATOCRIT 48.3 % (42.0-52.0); HEMOGLOBIN 15.7 g/dl (13.5-17.5); MEAN CORPUSCULAR HEMOGLOBIN 30.1 pg (27.0-33.0); MEAN CORPUSCULAR HGB CONC 32.5 g/dl (32.0-36.5); MEAN CORPUSCULAR VOLUME 92.5 fl (80.0-96.0); PLATELET COUNT, AUTOMATED 261 10^3/uL (150-450); RED BLOOD COUNT 5.22 10^6/uL (4.30-6.10); WHITE BLOOD COUNT 7.8 10^3/uL (4.0-10.0)
[2023-12-24 13:05] LABS: ALBUMIN 3.5 G/DL (3.2-5.2); ALKALINE PHOSPHATASE 80 U/L (46-116); ALT/SGPT 48 U/L (7.0-40); AST/SGOT 55 U/L (<34); BLOOD UREA NITROGEN 8 MG/DL (9-23); CALCIUM LEVEL 8.8 MG/DL (8.3-10.6); CARBON DIOXIDE LEVEL 34 MMOL/L (20-31); CHLORIDE LEVEL 104 MMOL/L (98-107); CREATININE FOR GFR 0.63 MG/DL (0.70-1.30); GLOMERULAR FILTRATION RATE > 60.0 (>49); GLUCOSE, FASTING 86 MG/DL (74-106); SODIUM LEVEL 143 MMOL/L (136-145); TOTAL PROTEIN 6.7 G/DL (5.7-8.2)
== END ==
LOC: M RAD 12:15
PROVIDERS: ATTEND Urology
DX: A63.0 Anogenital (venereal) warts (principal); Z79.899 Other long term (current) drug therapy

== ENCOUNTER 2024-01-18 11:00 | Day surgery (SDC) | payer MEDICARE ==
[~2024-01-18] VITALS: Ht 175.3 cm; Wt 82.8 kg
[~2024-01-18 11:00] MED LIST changes: +ALBU8.5H; +FLUT1BLS8; +INCR1INH; +ONDA-282 PO; -ONDA4TAB6 PO; +THERTAB65 PO; +THIA100T22 PO
[2024-01-18] MEDS: LR 1,000 ML IV SCH (11:55)
[2024-01-18] MEDS ORDERED: fentaNYL 100 MCG/2 ML INJECTION As Ordered ONE (12:27)
[2024-01-18] MEDS ORDERED: propofoL 200 MG/20 ML VIAL As Ordered ONE (12:28)
[2024-01-18] MEDS ORDERED: LIDOCAINE 2% 100MG/5ML SDV (FOR ANES.) As Ordered ONE (12:28)
[2024-01-18] MEDS: ceFAZolin SOD 2 GM in IV 1 EA IV ONE (12:55)
[2024-01-18] MEDS ORDERED: ONDANSETRON 4MG 2ML VIAL As Ordered ONE (13:29)
[2024-01-18] MEDS ORDERED: HYDROmorphone HCL 2MG/ML 1ML VIAL As Ordered ONE (13:36)
[2024-01-18] MEDS ORDERED: ePHEDrine SULFATE 25 MG/5 ML(5MG/ML) SYRINGE As Ordered ONE (13:53)
[2024-01-18] MEDS: LIDOCAINE 1% MDV 20ML VIAL As Ordered ONE (14:51)
[2024-01-18] MEDS ORDERED: fentaNYL 100 MCG/2 ML INJECTION IV PRN (15:05)
[2024-01-18] MEDS ORDERED: ONDANSETRON 4MG 2ML VIAL IV PRN (15:05)
[2024-01-18] MEDS ORDERED: ACETAMINOPHEN *IV* 1,000 MG in IV 1 EA IV ONE (15:10)
[2024-01-18] MEDS ORDERED: KETOROLAC 30 MG/ML 1ML VIAL IV ONE (15:10)
[2024-01-18] MEDS ORDERED: oxyCODONE 5MG TAB PO PRN (15:10)
[2024-01-18] MEDS ORDERED: CEPH500C PO (15:12)
[2024-01-18] MEDS ORDERED: HYDR-3713 PO (15:12)
[2024-01-18 16:35] VITALS: BP 166/84; TEMP 97.2; O2SAT 86
[2024-01-18] MEDS ORDERED: LEVALBUTEROL 1.25MG 0.5ML CONCENTRATE NEB NEB ONE (16:55)
== END 2024-01-18 17:00 | disposition home or self-care (01) ==
LOC: M SDC 11:00
PROVIDERS: ATTEND Urology
DX: A63.0 Anogenital (venereal) warts (principal); I10 Essential (primary) hypertension; E78.00 Pure hypercholesterolemia, unspecified; Z79.899 Other long term (current) drug therapy; G47.30 Sleep apnea, unspecified; J44.9 Chronic obstructive pulmonary disease, unspecified; Z87.19 Personal history of other diseases of the digestive system; Z79.51 Long term (current) use of inhaled steroids; Z88.5 Allergy status to narcotic agent
CPT/HCPCS: 17110; 88305; J0665; J0690; J1170; J2405; J3010

== ENCOUNTER 2024-03-22 18:54 | Inpatient (IN) | payer MEDICARE, MEDICAID ==
[~2024-03-22] VITALS: Ht 175.3 cm; Wt 87.4 kg
[~2024-03-22 18:54] MED LIST changes: +CEPH500C PO; +HYDR-3713 PO
[2024-03-22] MEDS: NS 1,000 ML IV ONE (19:15)
[2024-03-22] MEDS: ONDANSETRON 4MG 2ML VIAL IV ONE (19:16)
[2024-03-22 20:28] LABS: BASO # 0.1 10^3/uL (0.0-0.2); BASO % 0.8 % (0.0-1.0); EOS # 0.2 10^3/uL (0.0-0.5); EOS % 2.3 % (0.0-3.0); HEMOGLOBIN 16.6 g/dl (13.5-17.5); LYMPH # 2.5 10^3/uL (1.5-5.0); LYMPH % 35.8 % (24.0-44.0); MEAN CORPUSCULAR HGB CONC 32.5 g/dl (32.0-36.5); MEAN CORPUSCULAR VOLUME 92.1 fl (80.0-96.0); MONO # 0.4 10^3/uL (0.0-0.8); MONO % 5.1 % (2.0-8.0); NEUTROPHILS # 3.9 10^3/uL (1.5-8.5); NEUTROPHILS % 55.4 % (36.0-66.0); PLATELET COUNT, AUTOMATED 326 10^3/uL (150-450); RED BLOOD COUNT 5.54 10^6/uL (4.30-6.10); WHITE BLOOD COUNT 7.1 10^3/uL (4.0-10.0)
[2024-03-22] MEDS: IPRATROPIUM 0.5MG/ALBUTEROL 2.5MG INH SOL UD 3ML (DUONEB) NEB ONE (20:47)
[2024-03-22] MEDS ORDERED: LORazepam 2 MG TAB PO PRN (21:20)
[2024-03-22 22:10] LABS: SALICYLATE LEVEL < 3.0 MG/DL (<30)
[2024-03-22 22:16] LABS: ALBUMIN 3.6 G/DL (3.2-5.2); ALKALINE PHOSPHATASE 82 U/L (46-116); ALT/SGPT 25 U/L (7.0-40); AST/SGOT 28 U/L (<34); BILIRUBIN,DIRECT < 0.1 MG/DL (<0.4); BILIRUBIN,TOTAL 0.3 MG/DL (0.3-1.2); BLOOD UREA NITROGEN 10 MG/DL (9-23); CALCIUM LEVEL 7.9 MG/DL (8.3-10.6); CARBON DIOXIDE LEVEL 26 MMOL/L (20-31); CHLORIDE LEVEL 108 MMOL/L (98-107); CK-MB VALUE MASS 7.9 NG/ML (<3.6); CPK CREATINE PHOSPHOKINASE 219 U/L (46-171); CREATININE FOR GFR 0.68 MG/DL (0.70-1.30); GLOMERULAR FILTRATION RATE > 60.0 (>49); GLUCOSE, FASTING 110 MG/DL (74-106); POTASSIUM SERUM 4.5 MMOL/L (3.5-5.1); SODIUM LEVEL 140 MMOL/L (136-145); THYROID STIMULATING HORMONE 0.587 uIU/ML (0.55-4.78)
[2024-03-22 22:32] LABS: ABG BASE EXCESS -5.2 (-2.0-2.0); ABG HCO3 23.7 MMOL/L (22.0-26.0); ABG O2 SATURATION 90.3 % (95.0-99.0); ABG PARTIAL PRESSURE CO2 59.2 mmHg (35.0-45.0); ABG PARTIAL PRESSURE O2 70.3 mmHg (75.0-100.0); ABG STANDARD HCO3 20.1 MMOL/L. (22.0-26.0); ABG TOTAL CO2 25.6 MMOL/L (23.0-31.0); ABG pH (ARTERIAL) 7.221 UNITS (7.350-7.450)
[2024-03-22 23:18] LABS: AMPHETAMINES LEVEL URINE NEGATIVE (NEGATIVE); BARBITURATES URINE NEGATIVE (NEGATIVE); BENZODIAZEPINES URINE NEGATIVE (NEGATIVE); COCAINE METABOLITE URINE NEGATIVE (NEGATIVE); METHADONE URINE NEGATIVE (NEGATIVE); OPIATES URINE NEGATIVE (NEGATIVE); PHENCYCLIDINE URINE NEGATIVE (NEGATIVE)
[2024-03-22 23:35] LABS: CANNABINOIDS URINE POSITIVE (NEGATIVE)
[2024-03-23] VITALS (20 sets, daily range): BP systolic 118–148; BP diastolic 58–73; TEMP 97.3–98.4; O2SAT 91–95
[2024-03-23 00:27] LABS: ABG BASE EXCESS -5.5 (-2.0-2.0); ABG HCO3 22.5 MMOL/L (22.0-26.0); ABG O2 SATURATION 97.2 % (95.0-99.0); ABG PARTIAL PRESSURE CO2 53.3 mmHg (35.0-45.0); ABG PARTIAL PRESSURE O2 113.3 mmHg (75.0-100.0); ABG TOTAL CO2 24.2 MMOL/L (23.0-31.0)
[2024-03-23 00:28] LABS: ABG pH (ARTERIAL) 7.244 UNITS (7.350-7.450)
[2024-03-23] MEDS: methylPREDNISolone 40MG 1ML VIAL IV SCH (01:00)
[2024-03-23] MEDS: LevoFLOXacin IV 750 MG in IV 1 EA IV SCH (01:07)
[2024-03-23] MEDS: PANTOPRAZOLE 40MG VIAL IV ONE (01:07)
[2024-03-23] MEDS: THIAMINE 200MG 2ML VIAL IV ONE (01:08)
[2024-03-23] MEDS ORDERED: ALBU8.5H INH (01:43)
[2024-03-23] MEDS ORDERED: ATOR40TA75 PO (01:43)
[2024-03-23] MEDS ORDERED: IPRA0.00 INH (01:43)
[2024-03-23] MEDS ORDERED: FLUT1BLS8 INH (01:43)
[2024-03-23] MEDS ORDERED: NYST1POW9 TOP (01:43)
[2024-03-23] MEDS ORDERED: FLON1SPR NARES (01:43)
[2024-03-23 01:58] LABS: MB/CK RELATIVE INDEX 3.33 (< OR =4)
[2024-03-23] MEDS: NS 1,000 ML IV SCH (02:30)
[2024-03-23] MEDS: IPRATROPIUM 0.5MG/ALBUTEROL 2.5MG INH SOL UD 3ML (DUONEB) NEB SCH (02:50)
[2024-03-23 04:08] LABS: VENOUS BASE EXCESS -7.6 (-2.0-2.0); VENOUS HCO3 21.4 MMOL/L (23.0-27.0); VENOUS O2 SATURATION 89.6 % (60.0-80.0); VENOUS PARTIAL PRESSURE CO2 56.8 mmHg (38.0-50.0); VENOUS PARTIAL PRESSURE O2 65.5 mmHg (30.0-50.0); VENOUS PH 7.193 UNITS (7.330-7.430); VENOUS STANDARD HCO3 18.2 MMOL/L; VENOUS TOTAL CO2 23.1 MMOL/L (24.0-28.0)
[2024-03-23 04:20] LABS: HEMATOCRIT 48.9 % (42.0-52.0); HEMOGLOBIN 15.5 g/dl (13.5-17.5); MEAN CORPUSCULAR HEMOGLOBIN 29.8 pg (27.0-33.0); MEAN CORPUSCULAR HGB CONC 31.7 g/dl (32.0-36.5); PLATELET COUNT, AUTOMATED 295 10^3/uL (150-450); WHITE BLOOD COUNT 7.4 10^3/uL (4.0-10.0)
[2024-03-23 04:57] LABS: ALBUMIN 3.6 G/DL (3.2-5.2); ALKALINE PHOSPHATASE 79 U/L (46-116); ALT/SGPT 23 U/L (7.0-40); AST/SGOT 28 U/L (<34); BILIRUBIN,TOTAL 0.3 MG/DL (0.3-1.2); BLOOD UREA NITROGEN 12 MG/DL (9-23); CALCIUM LEVEL 7.9 MG/DL (8.3-10.6); CARBON DIOXIDE LEVEL 26 MMOL/L (20-31); CHLORIDE LEVEL 108 MMOL/L (98-107); CREATININE FOR GFR 0.73 MG/DL (0.70-1.30); GLOMERULAR FILTRATION RATE > 60.0 (>49); GLUCOSE, FASTING 131 MG/DL (74-106); MAGNESIUM LEVEL 1.6 MG/DL (1.8-2.4); POTASSIUM SERUM 5.1 MMOL/L (3.5-5.1); SODIUM LEVEL 141 MMOL/L (136-145); TOTAL PROTEIN 6.9 G/DL (5.7-8.2)
[2024-03-23] MEDS: MAG SULF 1GM/100ML (MAG RUN) 1 GM in IV 1 EA IV SCH (05:34)
[2024-03-23] MEDS ORDERED: HOME MED LIST COMPLETE! XX SCH (06:15)
[2024-03-23 06:33] LABS: VENOUS BASE EXCESS -5.4 (-2.0-2.0); VENOUS HCO3 22.2 MMOL/L (23.0-27.0); VENOUS O2 SATURATION 98.9 % (60.0-80.0); VENOUS PARTIAL PRESSURE CO2 50.5 mmHg (38.0-50.0); VENOUS PARTIAL PRESSURE O2 189.6 mmHg (30.0-50.0); VENOUS STANDARD HCO3 20.2 MMOL/L; VENOUS TOTAL CO2 23.7 MMOL/L (24.0-28.0)
[2024-03-23] MEDS: BUDESONIDE 0.5 MG/2 ML INHALATION SUSPENSION NEB SCH (07:58)
[2024-03-23] MEDS ORDERED: THIAMINE 200MG 2ML VIAL IV SCH (09:00)
[2024-03-23] MEDS: THIAMINE 100 MG TAB PO SCH (09:00)
[2024-03-23] MEDS ORDERED: THIAMINE 100 MG TAB PO SCH (09:00)
[2024-03-23] MEDS: FOLIC ACID 1MG TAB PO SCH (09:08)
[2024-03-23] MEDS: MULTIVITAMINS/MINERALS THERAP 1 TAB PO SCH (09:08)
[2024-03-23] MEDS: LORazepam 2 MG TAB PO PRN (09:08)
[2024-03-23] MEDS: ENOXAPARIN 40MG/0.4ML SYRINGE (J1650 PER 10MG) SC SCH (09:08)
[2024-03-23] MEDS: OXAZEPAM 15MG CAP PO SCH (11:08)
[2024-03-23] MEDS ORDERED: PILL CUTTER 1 EACH XX PRN (11:15)
[2024-03-23] MEDS: TIOTROPIUM INHALER/CAPSULE (SPIRIVA) INH SCH (11:22)
[2024-03-23] MEDS: ATORVASTATIN 20 MG TAB PO SCH (11:29)
[2024-03-23] MEDS: ESCITALOPRAM OXALATE 10 MG TAB (LEXAPRO) PO SCH (11:29)
[2024-03-23] MEDS: predniSONE 20 MG TAB PO ONE (15:59)
[2024-03-23 19:12] LABS: BLOOD UREA NITROGEN 15 MG/DL (9-23); CALCIUM LEVEL 8.3 MG/DL (8.3-10.6); CARBON DIOXIDE LEVEL 28 MMOL/L (20-31); CHLORIDE LEVEL 105 MMOL/L (98-107); CREATININE FOR GFR 0.77 MG/DL (0.70-1.30); GLOMERULAR FILTRATION RATE > 60.0 (>49); GLUCOSE, FASTING 211 MG/DL (74-106); POTASSIUM SERUM 4.8 MMOL/L (3.5-5.1); SODIUM LEVEL 137 MMOL/L (136-145)
[2024-03-23] MEDS: ADVAIR HFA 230/21MCG INHALER INH SCH (20:33)
[2024-03-23 20:35] LABS: VENOUS BASE EXCESS -1.9 (-2.0-2.0); VENOUS HCO3 23.6 MMOL/L (23.0-27.0); VENOUS O2 SATURATION 99.6 % (60.0-80.0); VENOUS PARTIAL PRESSURE CO2 42.9 mmHg (38.0-50.0); VENOUS PH 7.359 UNITS (7.330-7.430)
[2024-03-23] MEDS: LevoFLOXacin 750 MG TABLET PO SCH (20:40)
[2024-03-23] MEDS: NS 1,000 ML IV ONE (20:41)
[2024-03-24] VITALS (10 sets, daily range): BP systolic 116–154; BP diastolic 56–83; TEMP 96.6–97.9; O2SAT 92–95
[2024-03-24] MEDS: NS 1,000 ML IV SCH (06:41)
[2024-03-24] MEDS: predniSONE 20 MG TAB PO SCH (08:47)
[2024-03-24] MEDS ORDERED: THIAMINE 100 MG TAB PO SCH (09:00)
[2024-03-24] MEDS: DOXYCYCLINE HYCLATE 100MG TABLET PO SCH (11:34)
[2024-03-24] MEDS: IPRATROPIUM 0.5MG/ALBUTEROL 2.5MG INH SOL UD 3ML (DUONEB) NEB PRN (19:58)
[2024-03-24] MEDS: RAMELTEON 8 MG TAB (ROZEREM) PO PRN (21:24)
[2024-03-24] MEDS: NICOTINE 21MG/24HR 1 EA TRANSDERMAL TD SCH (21:24)
[2024-03-25] VITALS (12 sets, daily range): BP systolic 145–149; BP diastolic 81–92; TEMP 96–97.7; O2SAT 86–94
[2024-03-25 06:20] LABS: BLOOD UREA NITROGEN 12 MG/DL (9-23); CALCIUM LEVEL 7.9 MG/DL (8.3-10.6); CARBON DIOXIDE LEVEL 34 MMOL/L (20-31); CHLORIDE LEVEL 105 MMOL/L (98-107); GLOMERULAR FILTRATION RATE > 60.0 (>49); GLUCOSE, FASTING 101 MG/DL (74-106); MAGNESIUM LEVEL 1.8 MG/DL (1.8-2.4); POTASSIUM SERUM 4.5 MMOL/L (3.5-5.1); SODIUM LEVEL 138 MMOL/L (136-145)
[2024-03-26] VITALS (11 sets, daily range): BP systolic 125–160; BP diastolic 62–92; TEMP 97.2–97.9; O2SAT 91–97
[2024-03-26 07:08] LABS: HEMATOCRIT 42.4 % (42.0-52.0); HEMOGLOBIN 13.1 g/dl (13.5-17.5); MEAN CORPUSCULAR HGB CONC 30.9 g/dl (32.0-36.5); PLATELET COUNT, AUTOMATED 187 10^3/uL (150-450); RED BLOOD COUNT 4.51 10^6/uL (4.30-6.10); WHITE BLOOD COUNT 8.8 10^3/uL (4.0-10.0)
[2024-03-26 07:21] LABS: BLOOD UREA NITROGEN 10 MG/DL (9-23); CALCIUM LEVEL 8.1 MG/DL (8.3-10.6); CARBON DIOXIDE LEVEL 34 MMOL/L (20-31); CHLORIDE LEVEL 106 MMOL/L (98-107); CREATININE FOR GFR 0.57 MG/DL (0.70-1.30); GLOMERULAR FILTRATION RATE > 60.0 (>49); GLUCOSE, FASTING 79 MG/DL (74-106); MAGNESIUM LEVEL 1.6 MG/DL (1.8-2.4); POTASSIUM SERUM 4.1 MMOL/L (3.5-5.1); SODIUM LEVEL 141 MMOL/L (136-145)
[2024-03-26] MEDS: MAG SULF 1GM/100ML (MAG RUN) 1 GM in IV 1 EA IV ONE (10:54)
[2024-03-26] MEDS: guaiFENesin ER TABLET 600 MG TAB PO SCH (10:55)
[2024-03-27 04:20] VITALS: BP 157/88; TEMP 97.3; O2SAT 96
[2024-03-27 07:19] LABS: BLOOD UREA NITROGEN 11 MG/DL (9-23); CALCIUM LEVEL 8.4 MG/DL (8.3-10.6); CARBON DIOXIDE LEVEL 35 MMOL/L (20-31); CHLORIDE LEVEL 102 MMOL/L (98-107); CREATININE FOR GFR 0.58 MG/DL (0.70-1.30); GLOMERULAR FILTRATION RATE > 60.0 (>49); GLUCOSE, FASTING 90 MG/DL (74-106); MAGNESIUM LEVEL 1.6 MG/DL (1.8-2.4); POTASSIUM SERUM 4.3 MMOL/L (3.5-5.1); SODIUM LEVEL 139 MMOL/L (136-145)
[2024-03-27 08:00] VITALS: BP 159/81; TEMP 97.2; O2SAT 98
[2024-03-27] MEDS: MAG SULF 1GM/100ML (MAG RUN) 1 GM in IV 1 EA IV SCH (08:42)
[2024-03-27 12:00] VITALS: BP 134/84; TEMP 97.3; O2SAT 93
[2024-03-27 16:00] VITALS: BP_SYST 0; TEMP 97.3; O2SAT 94
[2024-03-27 20:00] VITALS: BP 135/77; TEMP 97.5; O2SAT 93
[2024-03-28] VITALS (8 sets, daily range): BP systolic 136–165; BP diastolic 73–87; TEMP 97.3–97.8; O2SAT 91–97
[2024-03-28 06:07] LABS: BASO % 0.4 % (0.0-1.0); EOS # 0.1 10^3/uL (0.0-0.5); EOS % 0.7 % (0.0-3.0); HEMATOCRIT 43.7 % (42.0-52.0); HEMOGLOBIN 13.9 g/dl (13.5-17.5); LYMPH % 19.6 % (24.0-44.0); MEAN CORPUSCULAR HEMOGLOBIN 29.1 pg (27.0-33.0); MEAN CORPUSCULAR HGB CONC 31.8 g/dl (32.0-36.5); MEAN CORPUSCULAR VOLUME 91.6 fl (80.0-96.0); MONO # 0.8 10^3/uL (0.0-0.8); MONO % 7.5 % (2.0-8.0); NEUTROPHILS # 7.4 10^3/uL (1.5-8.5); NEUTROPHILS % 70.8 % (36.0-66.0); PLATELET COUNT, AUTOMATED 188 10^3/uL (150-450); RED BLOOD COUNT 4.77 10^6/uL (4.30-6.10); WHITE BLOOD COUNT 10.4 10^3/uL (4.0-10.0)
[2024-03-28 06:34] LABS: BLOOD UREA NITROGEN 17 MG/DL (9-23); CALCIUM LEVEL 8.5 MG/DL (8.3-10.6); CARBON DIOXIDE LEVEL 36 MMOL/L (20-31); CHLORIDE LEVEL 102 MMOL/L (98-107); CREATININE FOR GFR 0.66 MG/DL (0.70-1.30); GLOMERULAR FILTRATION RATE > 60.0 (>49); GLUCOSE, FASTING 93 MG/DL (74-106); MAGNESIUM LEVEL 1.6 MG/DL (1.8-2.4); SODIUM LEVEL 140 MMOL/L (136-145)
[2024-03-28] MEDS: MAG SULF 1GM/100ML (MAG RUN) 1 GM in IV 1 EA IV SCH (09:04)
[2024-03-28] MEDS ORDERED: DOXY100T PO (12:44)
[2024-03-28] MEDS ORDERED: AMLO1TAB24 PO (12:44)
[2025-03-23] MEDS ORDERED: THIAMINE 100 MG TAB PO SCH (09:00)
== END 2024-03-28 15:42 | disposition home or self-care (01) | DRG 896 ==
LOC: M ED 18:54 → EDBD 18:54 → M ED INP 03-23 00:15 → M ICU 03-23 02:38 → M MSPAV 03-23 16:07
PROVIDERS: ADMIT Preventive Medicine Undersea and Hyperbaric Medicine; ATTEND Hospitalist
DX: F10.129 Alcohol abuse with intoxication, unspecified (principal); J96.21 Acute and chronic respiratory failure with hypoxia; G93.41 Metabolic encephalopathy; J96.22 Acute and chronic respiratory failure with hypercapnia; R45.851 Suicidal ideations; J44.1 Chronic obstructive pulmonary disease with (acute) exacerbation; E87.20 Acidosis, unspecified; F33.2 Major depressive disorder, recurrent severe without psychotic features; Z66 Do not resuscitate; I10 Essential (primary) hypertension; G47.33 Obstructive sleep apnea (adult) (pediatric); E78.5 Hyperlipidemia, unspecified; K76.0 Fatty (change of) liver, not elsewhere classified; R19.7 Diarrhea, unspecified; F41.9 Anxiety disorder, unspecified; F32.A Depression, unspecified; F17.210 Nicotine dependence, cigarettes, uncomplicated; K21.9 Gastro-esophageal reflux disease without esophagitis; Z11.52 Encounter for screening for COVID-19; Z99.81 Dependence on supplemental oxygen; Z79.899 Other long term (current) drug therapy; Z88.5 Allergy status to narcotic agent; E83.42 Hypomagnesemia; R00.1 Bradycardia, unspecified; Z71.6 Tobacco abuse counseling

== ENCOUNTER → 2024-05-02 | Outpatient (CLI) | payer MEDICARE, MEDICAID ==
[~2024-05-02] MED LIST changes: +ALBU8.5H INH; +AMLO1TAB24 PO; +FLON1SPR NARES; +FLUT1BLS8 INH; +IPRA0.00 INH; +NYST1POW9 TOP
== END ==
LOC: M RAD 09:32
PROVIDERS: ATTEND Internal Medicine Pulmonary Disease
DX: Z12.2 Encounter for screening for malignant neoplasm of respiratory organs (principal); F17.218 Nicotine dependence, cigarettes, with other nicotine-induced disorders; J98.11 Atelectasis; J98.4 Other disorders of lung; J43.2 Centrilobular emphysema

== ENCOUNTER 2024-06-12 15:44 | Emergency (ER) | payer MEDICARE, MEDICAID ==
[~2024-06-12 15:44] MED LIST changes: -DOXY-323 PO; +DOXY-441 PO
[2024-06-12 16:12] LABS: VENOUS BASE EXCESS 1.2 (-2.0-2.0); VENOUS HCO3 28.8 MMOL/L (23.0-27.0); VENOUS O2 SATURATION 66.8 % (60.0-80.0); VENOUS PARTIAL PRESSURE CO2 55.3 mmHg (38.0-50.0); VENOUS PARTIAL PRESSURE O2 36.3 mmHg (30.0-50.0); VENOUS PH 7.335 UNITS (7.330-7.430); VENOUS STANDARD HCO3 24.5 MMOL/L; VENOUS TOTAL CO2 30.5 MMOL/L (24.0-28.0)
[2024-06-12] MEDS: IPRATROPIUM 0.5MG/ALBUTEROL 2.5MG INH SOL UD 3ML (DUONEB) NEB ONE (16:12)
[2024-06-12] MEDS: predniSONE 20 MG TAB PO ONE (16:24)
[2024-06-12 16:28] LABS: BASO # 0.1 10^3/uL (0.0-0.2); BASO % 1.2 % (0.0-1.0); EOS # 0.1 10^3/uL (0.0-0.5); EOS % 1.5 % (0.0-3.0); HEMATOCRIT 55.1 % (42.0-52.0); HEMOGLOBIN 18.1 g/dl (13.5-17.5); LYMPH # 3.4 10^3/uL (1.5-5.0); LYMPH % 39.5 % (24.0-44.0); MEAN CORPUSCULAR HEMOGLOBIN 28.9 pg (27.0-33.0); MEAN CORPUSCULAR HGB CONC 32.8 g/dl (32.0-36.5); MONO # 0.5 10^3/uL (0.0-0.8); NEUTROPHILS # 4.4 10^3/uL (1.5-8.5); NEUTROPHILS % 51.5 % (36.0-66.0); PLATELET COUNT, AUTOMATED 317 10^3/uL (150-450); RED BLOOD COUNT 6.26 10^6/uL (4.30-6.10); WHITE BLOOD COUNT 8.6 10^3/uL (4.0-10.0)
[2024-06-12 16:48] LABS: ALBUMIN 3.8 G/DL (3.2-5.2); ALKALINE PHOSPHATASE 97 U/L (40-129); ALT/SGPT 19 U/L (7.0-40); AST/SGOT 31 U/L (<34); BILIRUBIN,DIRECT 0.2 MG/DL (<0.4); BILIRUBIN,TOTAL 0.6 MG/DL (0.3-1.2); BLOOD UREA NITROGEN 18 MG/DL (9-23); CALCIUM LEVEL 8.5 MG/DL (8.3-10.6); CARBON DIOXIDE LEVEL 32 MMOL/L (20-31); CHLORIDE LEVEL 103 MMOL/L (98-107); CREATININE FOR GFR 0.78 MG/DL (0.70-1.30); GLOMERULAR FILTRATION RATE > 60.0 (>49); GLUCOSE, FASTING 82 MG/DL (74-106); POTASSIUM SERUM 4.2 MMOL/L (3.5-5.1); SODIUM LEVEL 140 MMOL/L (136-145); TOTAL PROTEIN 7.4 G/DL (5.7-8.2)
[2024-06-12] MEDS ORDERED: ISOVUE-370 76% 100ML VIAL As Ordered ONE (16:59)
[2024-06-12] MEDS ORDERED: PRED20TA PO (17:31)
[2024-06-12] MEDS ORDERED: MUCI600T31 PO (17:32)
[2024-06-12] MEDS ORDERED: ZITHTAB PO (18:11)
[2024-06-12] MEDS ORDERED: CEFD300C PO (18:11)
[2024-06-12 18:15] VITALS: BP 128/74; TEMP 98.4; O2SAT 93
== END 2024-06-12 18:29 | disposition home or self-care (01) ==
LOC: M ED 15:44
DX: F10.10 Alcohol abuse, uncomplicated (principal); J44.9 Chronic obstructive pulmonary disease, unspecified; I10 Essential (primary) hypertension; E78.5 Hyperlipidemia, unspecified; F17.200 Nicotine dependence, unspecified, uncomplicated; F12.10 Cannabis abuse, uncomplicated; Z79.52 Long term (current) use of systemic steroids; Z79.02 Long term (current) use of antithrombotics/antiplatelets; Z79.2 Long term (current) use of antibiotics; Z79.899 Other long term (current) drug therapy; Z88.5 Allergy status to narcotic agent
CPT/HCPCS: 36415; 71045; 71275; 80048; 80076; 82803; 85025; 87040; 87486; 87581; 87633; 87798; 93005; 93041; 94640; 94760; 99285; J7512; Q9967

== ENCOUNTER 2024-11-12 06:55 | Inpatient (IN) | payer MEDICARE, MEDICAID ==
[2024-11-12] VITALS (12 sets, daily range): BP systolic 128–168; BP diastolic 63–100; TEMP 97.7–99; O2SAT 90–95
[~2024-11-12] VITALS: Ht 175.3 cm; Wt 86.7 kg
[~2024-11-12 06:55] MED LIST changes: +CEFD300C PO; +NYST1POW3 TOP; -NYST1POW9 TOP; +ZITHTAB PO
[2024-11-12 07:26] LABS: BASO # 0.1 10^3/uL (0.0-0.2); BASO % 1.1 % (0.0-1.0); EOS # 0.2 10^3/uL (0.0-0.5); EOS % 2.6 % (0.0-3.0); HEMATOCRIT 54.4 % (42.0-52.0); LYMPH # 2.3 10^3/uL (1.5-5.0); LYMPH % 34.4 % (24.0-44.0); MEAN CORPUSCULAR HEMOGLOBIN 30.5 pg (27.0-33.0); MEAN CORPUSCULAR HGB CONC 33.1 g/dl (32.0-36.5); MEAN CORPUSCULAR VOLUME 92.2 fl (80.0-96.0); MONO # 0.6 10^3/uL (0.0-0.8); NEUTROPHILS # 3.5 10^3/uL (1.5-8.5); NEUTROPHILS % 52.6 % (36.0-66.0); PLATELET COUNT, AUTOMATED 232 10^3/uL (150-450); WHITE BLOOD COUNT 6.6 10^3/uL (4.0-10.0)
[2024-11-12 07:58] LABS: CK-MB VALUE MASS 1.7 NG/ML (<3.6)
[2024-11-12 08:01] LABS: ALBUMIN 3.7 G/DL (3.2-5.2); ALKALINE PHOSPHATASE 83 U/L (40-129); ALT/SGPT 36 U/L (7.0-40); AST/SGOT 46 U/L (<34); BILIRUBIN,DIRECT 0.1 MG/DL (<0.4); BILIRUBIN,TOTAL 0.4 MG/DL (0.3-1.2); BLOOD UREA NITROGEN 9 MG/DL (9-23); CALCIUM LEVEL 8.2 MG/DL (8.3-10.6); CARBON DIOXIDE LEVEL 30 MMOL/L (20-31); CHLORIDE LEVEL 106 MMOL/L (98-107); GLOMERULAR FILTRATION RATE > 60.0 (>49); GLUCOSE, FASTING 92 MG/DL (74-106); POTASSIUM SERUM 4.1 MMOL/L (3.5-5.1); SODIUM LEVEL 146 MMOL/L (136-145); TOTAL PROTEIN 6.8 G/DL (5.7-8.2)
[2024-11-12 08:13] LABS: CPK CREATINE PHOSPHOKINASE 121 U/L (46-171); ETHYL ALCOHOL (ETHANOL) 0.344 % (0.000-0.010)
[2024-11-12] MEDS: methylPREDNISolone 125MG 2ML VIAL IV ONE (08:43)
[2024-11-12] MEDS ORDERED: FLUTICASONE PROP 0.05% NASAL SPRAY 16 GM (FLONASE) NARES PRN (09:00)
[2024-11-12] MEDS ORDERED: ISOVUE-370 76% 100ML VIAL As Ordered ONE (09:06)
[2024-11-12] MEDS: IPRATROPIUM 0.5MG/ALBUTEROL 2.5MG INH SOL UD 3ML NEB ONE ×3 (09:15→15:29)
[2024-11-12 09:17] LABS: ABG BASE EXCESS 1.5 (-2.0-2.0); ABG HCO3 30.3 MMOL/L (22.0-26.0); ABG PARTIAL PRESSURE O2 83.4 mmHg (75.0-100.0); ABG STANDARD HCO3 25.7 MMOL/L. (22.0-26.0); ABG TOTAL CO2 32.3 MMOL/L (23.0-31.0); ABG pH (ARTERIAL) 7.292 UNITS (7.350-7.450)
[2024-11-12 09:19] LABS: ABG PARTIAL PRESSURE CO2 64.2 mmHg (35.0-45.0)
[2024-11-12 09:25] LABS: CK-MB VALUE MASS 1.3 NG/ML (<3.6); MB/CK RELATIVE INDEX 0.92 (< OR =4)
[2024-11-12] MEDS ORDERED: NORV5TAB PO (10:35)
[2024-11-12] MEDS ORDERED: HOME MED LIST COMPLETE! XX SCH (10:40)
[2024-11-12] MEDS ORDERED: LORazepam 2 MG TAB PO PRN (11:55)
[2024-11-12 12:40] LABS: MAGNESIUM LEVEL 1.7 MG/DL (1.8-2.4)
[2024-11-12] MEDS: ATORVASTATIN 20 MG TAB PO SCH (13:28)
[2024-11-12] MEDS: diazePAM 5MG TABLET PO SCH ×2 (13:29→18:32)
[2024-11-12] MEDS: amLODIPine 5 MG TAB PO SCH (13:29)
[2024-11-12] MEDS: THIAMINE 200MG 2ML VIAL IV ONE (13:30)
[2024-11-12] MEDS: ESCITALOPRAM OXALATE 10 MG TAB (LEXAPRO) PO SCH (13:30)
[2024-11-12] MEDS: FOLIC ACID 1MG TAB PO SCH (13:30)
[2024-11-12] MEDS: PANTOPRAZOLE 40MG VIAL IV SCH (13:31)
[2024-11-12] MEDS: MAG SULF 1GM/100ML (MAG RUN) 1 GM in IV 1 EA IV ONE (14:51)
[2024-11-12] MEDS: LORazepam 2 MG/ML 1ML VIAL IV PRN (17:14)
[2024-11-12] MEDS ORDERED: dexmedeTOMidine 200 MCG in IV 1 EA IV SCH (18:35)
[2024-11-12] MEDS: FORMOTEROL FUMARATE 20 MCG/2 ML INHALATION SOLUTION (PERFOROMIST) INH SCH (19:20)
[2024-11-12] MEDS: GLYCOPYRROLATE INJ 0.2 MG/ML 2 ML VIAL NEB SCH (19:20)
[2024-11-12] MEDS: NICOTINE 21MG/24HR 1 EA TRANSDERMAL TD SCH (21:21)
[2024-11-12] MEDS: THIAMINE 100 MG TAB PO SCH (21:22)
[2024-11-13] VITALS (18 sets, daily range): BP systolic 119–159; BP diastolic 58–89; TEMP 96.8–98.3; O2SAT 87–99
[2024-11-13 05:42] LABS: ALBUMIN 3.4 G/DL (3.2-5.2); ALKALINE PHOSPHATASE 79 U/L (40-129); ALT/SGPT 30 U/L (7.0-40); AST/SGOT 27 U/L (<34); BILIRUBIN,TOTAL 0.9 MG/DL (0.3-1.2); BLOOD UREA NITROGEN 10 MG/DL (9-23); CALCIUM LEVEL 8.1 MG/DL (8.3-10.6); CARBON DIOXIDE LEVEL 32 MMOL/L (20-31); CHLORIDE LEVEL 102 MMOL/L (98-107); CREATININE FOR GFR 0.59 MG/DL (0.70-1.30); GLOMERULAR FILTRATION RATE > 60.0 (>49); GLUCOSE, FASTING 145 MG/DL (74-106); MAGNESIUM LEVEL 1.7 MG/DL (1.8-2.4); PHOSPHORUS LEVEL 2.8 MG/DL (2.4-5.1); POTASSIUM SERUM 4.2 MMOL/L (3.5-5.1); SODIUM LEVEL 141 MMOL/L (136-145); TOTAL PROTEIN 6.2 G/DL (5.7-8.2)
[2024-11-13] MEDS: IPRATROPIUM 0.5MG/ALBUTEROL 2.5MG INH SOL UD 3ML NEB PRN (07:29)
[2024-11-13] MEDS: ENOXAPARIN 40MG/0.4ML SYRINGE (J1650 PER 10MG) SC SCH (09:41)
[2024-11-13] MEDS: MULTIVITAMINS/MINERALS THERAP 1 TAB PO SCH (09:41)
[2024-11-13] MEDS: predniSONE 20 MG TAB PO SCH (09:42)
[2024-11-13] MEDS: MAG SULF 1GM/100ML (MAG RUN) 1 GM in IV 1 EA IV ONE (09:54)
[2024-11-13] MEDS: LORazepam 0.5 MG TAB PO PRN (17:00)
[2024-11-14 00:17] VITALS: BP 150/82; TEMP 99.1; O2SAT 92
[2024-11-14 04:14] VITALS: BP 158/90; TEMP 98.2; O2SAT 92
[2024-11-14 05:39] LABS: ALBUMIN 3.2 G/DL (3.2-5.2); ALKALINE PHOSPHATASE 72 U/L (40-129); ALT/SGPT 25 U/L (7.0-40); AST/SGOT 21 U/L (<34); BILIRUBIN,TOTAL 0.8 MG/DL (0.3-1.2); BLOOD UREA NITROGEN 12 MG/DL (9-23); CALCIUM LEVEL 8.3 MG/DL (8.3-10.6); CARBON DIOXIDE LEVEL 34 MMOL/L (20-31); CHLORIDE LEVEL 102 MMOL/L (98-107); CREATININE FOR GFR 0.58 MG/DL (0.70-1.30); GLOMERULAR FILTRATION RATE > 60.0 (>49); GLUCOSE, FASTING 108 MG/DL (74-106); MAGNESIUM LEVEL 1.9 MG/DL (1.8-2.4); POTASSIUM SERUM 4.1 MMOL/L (3.5-5.1); SODIUM LEVEL 141 MMOL/L (136-145)
[2024-11-14 06:44] VITALS: BP 162/96
[2024-11-14 08:00] VITALS: BP 159/88; TEMP 98.5; O2SAT 92
[2024-11-14 09:04] VITALS: BP 159/88
[2024-11-14] MEDS ORDERED: PRED10TA2 PO (09:04)
== END 2024-11-14 11:03 | disposition home or self-care (01) | DRG 896 ==
LOC: M ED 06:55 → EDBD 06:55 → M ED INP 11:53 → M ICU 12:43
PROVIDERS: ADMIT Internal Medicine Pulmonary Disease; ATTEND Student in an Organized Health Care Education/Training Program
DX: F10.129 Alcohol abuse with intoxication, unspecified (principal); J96.02 Acute respiratory failure with hypercapnia; J96.01 Acute respiratory failure with hypoxia; J44.1 Chronic obstructive pulmonary disease with (acute) exacerbation; K21.9 Gastro-esophageal reflux disease without esophagitis; I10 Essential (primary) hypertension; G31.2 Degeneration of nervous system due to alcohol; F17.200 Nicotine dependence, unspecified, uncomplicated; E83.42 Hypomagnesemia; F32.A Depression, unspecified; G47.33 Obstructive sleep apnea (adult) (pediatric); K76.0 Fatty (change of) liver, not elsewhere classified; K57.90 Diverticulosis of intestine, part unspecified, without perforation or abscess without bleeding; R19.7 Diarrhea, unspecified; F41.9 Anxiety disorder, unspecified; Z91.199 Patient's noncompliance with other medical treatment and regimen due to unspecified reason; N50.9 Disorder of male genital organs, unspecified; Z88.5 Allergy status to narcotic agent; Z79.899 Other long term (current) drug therapy

== ENCOUNTER 2024-12-10 13:15 | Inpatient (IN) | payer MEDICARE, MEDICAID ==
[~2024-12-10] VITALS: Ht 175.3 cm; Wt 86.2 kg
[~2024-12-10 13:15] MED LIST changes: +NORV5TAB PO
[2024-12-10 13:40] LABS: BASO # 0.1 10^3/uL (0.0-0.2); BASO % 1.2 % (0.0-1.0); EOS # 0.2 10^3/uL (0.0-0.5); EOS % 2.5 % (0.0-3.0); HEMATOCRIT 53.6 % (42.0-52.0); HEMOGLOBIN 17.4 g/dl (13.5-17.5); LYMPH # 2.9 10^3/uL (1.5-5.0); LYMPH % 38.9 % (24.0-44.0); MEAN CORPUSCULAR HEMOGLOBIN 30.3 pg (27.0-33.0); MEAN CORPUSCULAR HGB CONC 32.5 g/dl (32.0-36.5); MEAN CORPUSCULAR VOLUME 93.4 fl (80.0-96.0); MONO # 0.6 10^3/uL (0.0-0.8); MONO % 7.7 % (2.0-8.0); NEUTROPHILS # 3.7 10^3/uL (1.5-8.5); NEUTROPHILS % 49.2 % (36.0-66.0); PLATELET COUNT, AUTOMATED 245 10^3/uL (150-450); RED BLOOD COUNT 5.74 10^6/uL (4.30-6.10); WHITE BLOOD COUNT 7.5 10^3/uL (4.0-10.0)
[2024-12-10] MEDS: IPRATROPIUM 0.5MG/ALBUTEROL 2.5MG INH SOL UD 3ML NEB PRN (13:46)
[2024-12-10 13:58] LABS: ABG BASE EXCESS 3.9 (-2.0-2.0); ABG HCO3 31.9 MMOL/L (22.0-26.0); ABG O2 SATURATION 98.2 % (95.0-99.0); ABG PARTIAL PRESSURE O2 150.9 mmHg (75.0-100.0); ABG TOTAL CO2 33.8 MMOL/L (23.0-31.0); ABG pH (ARTERIAL) 7.341 UNITS (7.350-7.450)
[2024-12-10 14:01] LABS: ABG PARTIAL PRESSURE CO2 60.4 mmHg (35.0-45.0)
[2024-12-10 14:40] LABS: ALBUMIN 3.8 G/DL (3.2-5.2); ALKALINE PHOSPHATASE 77 U/L (40-129); ALT/SGPT 24 U/L (7.0-40); AST/SGOT 17 U/L (<34); BILIRUBIN,DIRECT 0.2 MG/DL (<0.4); BILIRUBIN,TOTAL 0.7 MG/DL (0.3-1.2); BLOOD UREA NITROGEN 12 MG/DL (9-23); CALCIUM LEVEL 8.8 MG/DL (8.3-10.6); CARBON DIOXIDE LEVEL 35 MMOL/L (20-31); CHLORIDE LEVEL 105 MMOL/L (98-107); CK-MB VALUE MASS < 1.0 NG/ML (<3.6); CREATININE FOR GFR 0.68 MG/DL (0.70-1.30); GLOMERULAR FILTRATION RATE > 90.0 (>49); GLUCOSE, FASTING 87 MG/DL (74-106); POTASSIUM SERUM 3.8 MMOL/L (3.5-5.1); SODIUM LEVEL 145 MMOL/L (136-145); THYROID STIMULATING HORMONE 0.501 uIU/ML (0.55-4.78); TOTAL PROTEIN 6.8 G/DL (5.7-8.2)
[2024-12-10 14:45] LABS: CPK CREATINE PHOSPHOKINASE 58 U/L (46-171); MB/CK RELATIVE INDEX 1.72 (< OR =4)
[2024-12-10] MEDS ORDERED: ISOVUE-370 76% 100ML VIAL As Ordered ONE (15:00)
[2024-12-10 15:07] LABS: ETHYL ALCOHOL (ETHANOL) 0.291 % (0.000-0.010)
[2024-12-10 15:11] LABS: CK-MB VALUE MASS < 1.0 NG/ML (<3.6)
[2024-12-10 15:14] LABS: CPK CREATINE PHOSPHOKINASE 56 U/L (46-171); MB/CK RELATIVE INDEX 1.78 (< OR =4)
[2024-12-10] MEDS: PIPERACILLIN/TAZOBACTAM SOD 4.5 GM in DEXTROSE 5% (D5W) ADV/MINI-BAG 50 ML IV ONE (16:17)
[2024-12-10 16:19] LABS: VENOUS BASE EXCESS 3.5 (-2.0-2.0); VENOUS HCO3 33.1 MMOL/L (23.0-27.0); VENOUS O2 SATURATION 78.5 % (60.0-80.0); VENOUS PARTIAL PRESSURE CO2 71.3 mmHg (38.0-50.0); VENOUS PARTIAL PRESSURE O2 46.9 mmHg (30.0-50.0); VENOUS PH 7.285 UNITS (7.330-7.430); VENOUS TOTAL CO2 35.3 MMOL/L (24.0-28.0)
[2024-12-10] MEDS: VANCOMYCIN HCL 1,000 MG, VIAL MATE ADAPTER 1 EACH in NS 250 ML IV ONE (17:35)
[2024-12-10] MEDS ORDERED: LORazepam 2 MG TAB PO PRN (17:55)
[2024-12-10] MEDS ORDERED: PANT-23 PO (18:11)
[2024-12-10] MEDS ORDERED: PRED10TA2 PO (18:11)
[2024-12-10] MEDS ORDERED: AMLO25TA PO (18:11)
[2024-12-10] MEDS ORDERED: HOME MED LIST COMPLETE! XX SCH (18:15)
[2024-12-10 18:45] LABS: PROCALCITONIN 0.07 ng/ml
[2024-12-10] MEDS: IPRATROPIUM 0.5MG/ALBUTEROL 2.5MG INH SOL UD 3ML NEB SCH (19:37)
[2024-12-10] MEDS: methylPREDNISolone 125MG 2ML VIAL IV SCH (19:42)
[2024-12-10 19:50] LABS: ABG BASE EXCESS 0.4 (-2.0-2.0); ABG HCO3 27.3 MMOL/L (22.0-26.0); ABG O2 SATURATION 96.4 % (95.0-99.0); ABG PARTIAL PRESSURE CO2 51.6 mmHg (35.0-45.0); ABG PARTIAL PRESSURE O2 90.3 mmHg (75.0-100.0); ABG STANDARD HCO3 24.8 MMOL/L. (22.0-26.0); ABG TOTAL CO2 28.9 MMOL/L (23.0-31.0); ABG pH (ARTERIAL) 7.341 UNITS (7.350-7.450)
[2024-12-10 20:30] VITALS: BP 136/75; TEMP 97.2; O2SAT 91
[2024-12-10 23:00] VITALS: BP 106/61; O2SAT 88
[2024-12-10] MEDS: ACETAMINOPHEN *IV* 1,000 MG in IV 1 EA IV ONE (23:44)
[2024-12-11] VITALS (23 sets, daily range): BP systolic 111–153; BP diastolic 60–93; TEMP 97.4–98.3; O2SAT 89–95
[2024-12-11 05:22] LABS: HEMATOCRIT 49.3 % (42.0-52.0); HEMOGLOBIN 16.2 g/dl (13.5-17.5); MEAN CORPUSCULAR HEMOGLOBIN 29.9 pg (27.0-33.0); MEAN CORPUSCULAR HGB CONC 32.9 g/dl (32.0-36.5); MEAN CORPUSCULAR VOLUME 91.1 fl (80.0-96.0); PLATELET COUNT, AUTOMATED 222 10^3/uL (150-450); RED BLOOD COUNT 5.41 10^6/uL (4.30-6.10); WHITE BLOOD COUNT 10.6 10^3/uL (4.0-10.0)
[2024-12-11 05:54] LABS: ABG BASE EXCESS 0.5 (-2.0-2.0); ABG HCO3 25.9 MMOL/L (22.0-26.0); ABG O2 SATURATION 96.8 % (95.0-99.0); ABG STANDARD HCO3 24.9 MMOL/L. (22.0-26.0); ABG TOTAL CO2 27.2 MMOL/L (23.0-31.0); ABG pH (ARTERIAL) 7.387 UNITS (7.350-7.450)
[2024-12-11] MEDS: BENZONATATE 100MG CAPSULE PO SCH (06:00)
[2024-12-11 06:48] LABS: ALBUMIN 3.5 G/DL (3.2-5.2); ALKALINE PHOSPHATASE 64 U/L (40-129); ALT/SGPT 19 U/L (7.0-40); AST/SGOT 15 U/L (<34); BILIRUBIN,TOTAL 0.9 MG/DL (0.3-1.2); BLOOD UREA NITROGEN 19 MG/DL (9-23); CALCIUM LEVEL 8.5 MG/DL (8.3-10.6); CARBON DIOXIDE LEVEL 29 MMOL/L (20-31); CHLORIDE LEVEL 104 MMOL/L (98-107); CREATININE FOR GFR 0.68 MG/DL (0.70-1.30); GLOMERULAR FILTRATION RATE > 90.0 (>49); GLUCOSE, FASTING 134 MG/DL (74-106); POTASSIUM SERUM 4.5 MMOL/L (3.5-5.1); SODIUM LEVEL 143 MMOL/L (136-145); TOTAL PROTEIN 6.2 G/DL (5.7-8.2)
[2024-12-11] MEDS ORDERED: THIAMINE 200MG 2ML VIAL IV SCH (09:00)
[2024-12-11] MEDS: ENOXAPARIN 40MG/0.4ML SYRINGE (J1650 PER 10MG) SC SCH (09:19)
[2024-12-11] MEDS: THIAMINE 100 MG TAB PO SCH (09:19)
[2024-12-11] MEDS: MULTIVITAMINS/MINERALS THERAP 1 TAB PO SCH (09:20)
[2024-12-11] MEDS: FOLIC ACID 1MG TAB PO SCH (09:20)
[2024-12-11] MEDS: MONTELUKAST 10 MG TAB PO ONE (10:56)
[2024-12-11] MEDS: CETIRIZINE (ZyrTEC) 10 MG TAB PO ONE (10:57)
[2024-12-11] MEDS: guaiFENesin ER TABLET 600 MG TAB PO SCH (11:00)
[2024-12-11] MEDS: methylPREDNISolone 125MG 2ML VIAL IV SCH (15:01)
[2024-12-12] VITALS (14 sets, daily range): BP systolic 122–140; BP diastolic 65–73; TEMP 97.2–97.5; O2SAT 89–96
[2024-12-12 04:15] LABS: HEMATOCRIT 45.2 % (42.0-52.0); HEMOGLOBIN 14.7 g/dl (13.5-17.5); MEAN CORPUSCULAR HEMOGLOBIN 30.1 pg (27.0-33.0); MEAN CORPUSCULAR HGB CONC 32.5 g/dl (32.0-36.5); MEAN CORPUSCULAR VOLUME 92.6 fl (80.0-96.0); PLATELET COUNT, AUTOMATED 205 10^3/uL (150-450); RED BLOOD COUNT 4.88 10^6/uL (4.30-6.10); WHITE BLOOD COUNT 14.1 10^3/uL (4.0-10.0)
[2024-12-12 04:46] LABS: ALBUMIN 3.2 G/DL (3.2-5.2); ALKALINE PHOSPHATASE 59 U/L (40-129); ALT/SGPT 15 U/L (7.0-40); AST/SGOT 11 U/L (<34); BLOOD UREA NITROGEN 17 MG/DL (9-23); CALCIUM LEVEL 8.8 MG/DL (8.3-10.6); CARBON DIOXIDE LEVEL 30 MMOL/L (20-31); CHLORIDE LEVEL 105 MMOL/L (98-107); CREATININE FOR GFR 0.57 MG/DL (0.70-1.30); GLOMERULAR FILTRATION RATE > 90.0 (>49); GLUCOSE, FASTING 136 MG/DL (74-106); POTASSIUM SERUM 4.2 MMOL/L (3.5-5.1); SODIUM LEVEL 141 MMOL/L (136-145); TOTAL PROTEIN 5.8 G/DL (5.7-8.2)
[2024-12-12] MEDS: MONTELUKAST 10 MG TAB PO SCH (08:45)
[2024-12-12] MEDS: predniSONE 20 MG TAB PO SCH (08:46)
[2024-12-12] MEDS: CETIRIZINE (ZyrTEC) 10 MG TAB PO SCH (08:46)
[2024-12-13 04:09] VITALS: BP 138/87; TEMP 97.5; O2SAT 97
[2024-12-13 06:14] LABS: HEMATOCRIT 44.4 % (42.0-52.0); HEMOGLOBIN 14.3 g/dl (13.5-17.5); MEAN CORPUSCULAR HGB CONC 32.2 g/dl (32.0-36.5); MEAN CORPUSCULAR VOLUME 93.3 fl (80.0-96.0); PLATELET COUNT, AUTOMATED 182 10^3/uL (150-450); RED BLOOD COUNT 4.76 10^6/uL (4.30-6.10)
[2024-12-13 06:47] LABS: ALKALINE PHOSPHATASE 54 U/L (40-129); ALT/SGPT 15 U/L (7.0-40); AST/SGOT 12 U/L (<34); BILIRUBIN,TOTAL 0.8 MG/DL (0.3-1.2); BLOOD UREA NITROGEN 16 MG/DL (9-23); CALCIUM LEVEL 8.5 MG/DL (8.3-10.6); CARBON DIOXIDE LEVEL 31 MMOL/L (20-31); CHLORIDE LEVEL 103 MMOL/L (98-107); CREATININE FOR GFR 0.59 MG/DL (0.70-1.30); GLOMERULAR FILTRATION RATE > 90.0 (>49); GLUCOSE, FASTING 95 MG/DL (74-106); SODIUM LEVEL 139 MMOL/L (136-145); TOTAL PROTEIN 5.5 G/DL (5.7-8.2)
[2024-12-13] MEDS ORDERED: CETI10TA PO (11:56)
[2024-12-13] MEDS ORDERED: MONT10TA97 PO (11:56)
[2024-12-13 12:00] VITALS: BP 131/80; TEMP 98.2; O2SAT 96
== END 2024-12-13 11:35 | disposition home or self-care (01) | DRG 189 ==
LOC: EDBD 13:15 → M ED 13:15 → M ED INP 17:28 → M ICU 20:22 → M PCU 12-11 12:40 → M MS5PR 12-12 17:48
PROVIDERS: ADMIT Internal Medicine Pulmonary Disease; ATTEND Internal Medicine Nephrology
DX: J96.22 Acute and chronic respiratory failure with hypercapnia (principal); G93.41 Metabolic encephalopathy; J44.1 Chronic obstructive pulmonary disease with (acute) exacerbation; J98.11 Atelectasis; F17.210 Nicotine dependence, cigarettes, uncomplicated; F10.229 Alcohol dependence with intoxication, unspecified; I10 Essential (primary) hypertension; G47.33 Obstructive sleep apnea (adult) (pediatric); J96.21 Acute and chronic respiratory failure with hypoxia; Z91.198 Patient's noncompliance with other medical treatment and regimen for other reason; F41.9 Anxiety disorder, unspecified; Z88.5 Allergy status to narcotic agent; Z66 Do not resuscitate; Z99.81 Dependence on supplemental oxygen; Z79.899 Other long term (current) drug therapy

== ENCOUNTER → 2024-12-14 | Outpatient (CLI) | payer MEDICARE, MEDICAID ==
[~2024-12-14] MED LIST changes: +AMLO25TA PO; +CETI10TA PO; +MONT10TA97 PO; +PANT-23 PO
[2024-12-14 08:17] LABS: BASO % 0.3 % (0.0-1.0); EOS % 0.1 % (0.0-3.0); HEMATOCRIT 50.2 % (42.0-52.0); HEMOGLOBIN 15.8 g/dl (13.5-17.5); LYMPH # 1.5 10^3/uL (1.5-5.0); LYMPH % 15.4 % (24.0-44.0); MEAN CORPUSCULAR HEMOGLOBIN 29.9 pg (27.0-33.0); MEAN CORPUSCULAR HGB CONC 31.5 g/dl (32.0-36.5); MEAN CORPUSCULAR VOLUME 94.9 fl (80.0-96.0); MONO # 0.7 10^3/uL (0.0-0.8); NEUTROPHILS # 7.3 10^3/uL (1.5-8.5); NEUTROPHILS % 75.3 % (36.0-66.0); PLATELET COUNT, AUTOMATED 204 10^3/uL (150-450); RED BLOOD COUNT 5.29 10^6/uL (4.30-6.10); WHITE BLOOD COUNT 9.7 10^3/uL (4.0-10.0)
[2024-12-14 08:51] LABS: ALBUMIN 3.3 G/DL (3.2-5.2); ALKALINE PHOSPHATASE 71 U/L (40-129); ALT/SGPT 19 U/L (7.0-40); AST/SGOT 14 U/L (<34); BILIRUBIN,TOTAL 0.4 MG/DL (0.3-1.2); BLOOD UREA NITROGEN 14 MG/DL (9-23); CALCIUM LEVEL 8.7 MG/DL (8.3-10.6); CARBON DIOXIDE LEVEL 34 MMOL/L (20-31); CHLORIDE LEVEL 107 MMOL/L (98-107); CHOLESTEROL LEVEL 202 MG/DL (<200); CHOLESTEROL RISK RATIO 2.55 (<5); CREATININE FOR GFR 0.71 MG/DL (0.70-1.30); GLOMERULAR FILTRATION RATE > 90.0 (>49); GLUCOSE, FASTING 81 MG/DL (74-106); HDL CHOLESTEROL 79.2 MG/DL (>40); LDL CHOLESTEROL 67.2 MG/DL (<100); NON-HDL-C 122.8 MG/DL; POTASSIUM SERUM 3.6 MMOL/L (3.5-5.1); PSA SCREENING 1.03 NG/ML (< 4.00); PTH INTACT 28.8 PG/ML (18.5-88.0); SODIUM LEVEL 147 MMOL/L (136-145); TOTAL 25(OH) VITAMIN D 16.4 NG/ML (20.0-100.0); TOTAL PROTEIN 6.2 G/DL (5.7-8.2); TRIGLYCERIDES LEVEL 278 MG/DL (<150); VITAMIN B12 LEVEL 291 PG/ML (211-911)
== END ==
LOC: M LAB 07:38
PROVIDERS: ATTEND Physician Assistant Medical
DX: E55.9 Vitamin D deficiency, unspecified (principal); Z12.5 Encounter for screening for malignant neoplasm of prostate; D75.89 Other specified diseases of blood and blood-forming organs; E78.5 Hyperlipidemia, unspecified
CPT/HCPCS: 36415; 80053; 80061; 82306; 82607; 83970; 85025; G0103

== ENCOUNTER → 2025-02-13 | Outpatient (CLI) | payer MEDICARE, MEDICAID ==
[~2025-02-13] MED LIST changes: +ALBU2.5V10 NEB; +DOXY100T27 PO
[2025-02-13 08:06] LABS: BASO # 0.1 10^3/uL (0.0-0.2); BASO % 0.5 % (0.0-1.0); EOS # 0.0 10^3/uL (0.0-0.5); EOS % 0.4 % (0.0-3.0); LYMPH # 0.8 10^3/uL (1.5-5.0); LYMPH % 8.8 % (24.0-44.0); MONO # 0.6 10^3/uL (0.0-0.8); MONO % 6.0 % (2.0-8.0); NEUTROPHILS # 8.0 10^3/uL (1.5-8.5); NEUTROPHILS % 84.0 % (36.0-66.0); PLATELET COUNT, AUTOMATED 229 10^3/uL (150-450)
[2025-02-13 08:32] LABS: ETHYL ALCOHOL (ETHANOL) < 0.003 % (0.000-0.010)
[2025-02-13 08:34] LABS: ALT/SGPT 19 U/L (7.0-40); AST/SGOT 32 U/L (<34); CALCIUM LEVEL 8.6 MG/DL (8.3-10.6); CARBON DIOXIDE LEVEL 33 MMOL/L (20-31); CHLORIDE LEVEL 101 MMOL/L (98-107); CREATININE FOR GFR 0.68 MG/DL (0.70-1.30); GLOMERULAR FILTRATION RATE > 90.0 (>49); POTASSIUM SERUM 3.8 MMOL/L (3.5-5.1); SODIUM LEVEL 142 MMOL/L (136-145)
== END ==
LOC: M LAB 07:26
PROVIDERS: ATTEND Physician Assistant Medical
DX: F10.20 Alcohol dependence, uncomplicated (principal); E87.20 Acidosis, unspecified; K72.01 Acute and subacute hepatic failure with coma; J96.11 Chronic respiratory failure with hypoxia; F33.1 Major depressive disorder, recurrent, moderate

== ENCOUNTER → 2025-02-17 | Outpatient (REF) | payer MEDICARE, MEDICAID | LOC: M SFHCPLAZ 10:15 | PROVIDERS: ATTEND Physician Assistant Medical | DX: J44.1 Chronic obstructive pulmonary disease with (acute) exacerbation (principal) ==

== ENCOUNTER → 2025-02-22 | Outpatient (CLI) | payer MEDICARE, MEDICAID | LOC: M PLAIMG 10:29 | PROVIDERS: ATTEND Physician Assistant Medical | DX: J98.11 Atelectasis (principal); J18.9 Pneumonia, unspecified organism ==

== ENCOUNTER 2025-02-28 11:10 | Emergency (ER) | payer MEDICARE, MEDICAID ==
[~2025-02-28] VITALS: Ht 175.3 cm; Wt 84.3 kg
[2025-02-28] MEDS: LIDOCAINE 2% MDV 20 ML VIAL SC ONE (12:00)
[2025-02-28 12:25] VITALS: BP 137/80; TEMP 98.7; O2SAT 92
[2025-02-28] MEDS ORDERED: BACI500O8 TOP (12:42)
== END 2025-02-28 12:54 | disposition home or self-care (01) ==
LOC: M ED 11:10
DX: S91.209A Unspecified open wound of unspecified toe(s) with damage to nail, initial encounter (principal); Y92.019 Unspecified place in single-family (private) house as the place of occurrence of the external cause; Y93.9 Activity, unspecified; Y99.9 Unspecified external cause status; W23.1XXA Caught, crushed, jammed, or pinched between stationary objects, initial encounter; J44.9 Chronic obstructive pulmonary disease, unspecified; Z88.5 Allergy status to narcotic agent; Z79.51 Long term (current) use of inhaled steroids; Z79.2 Long term (current) use of antibiotics; Z79.52 Long term (current) use of systemic steroids; Z79.899 Other long term (current) drug therapy